=== PATIENT | male | born 1955 | race Caucasian/White ===

== ENCOUNTER → 2018-04-20 | Outpatient (CLI) | payer BC ==
[~2018-04-20] MED LIST: DOBUTamine DRIP for NUC MED 500 MG in DEXTROSE/WATER 1 250ML.BAG IV ONE
--- NOTE | 2018-04-20 16:44 | ECHOS ---
STRESS ECHOCARDIOGRAM DATE OF SERVICE: 04/20/2018 INDICATIONS: Chest pain. MEDICATIONS: BASELINE HEART RATE: 70 BASELINE BLOOD PRESSURE: 155/76 MAXIMUM HEART RATE: 148 MAXIMUM BLOOD PRESSURE: 216/63 85% MPHR: 134 100% MPHR: 158 METS: MAXIMUM STAGE REACHED: 30 mcg/kg per minute. TOTAL EXERCISE TIME: 7:15 CLINICAL INFORMATION: STRESS DATA: Pre-testing physical examination showed a heart rate of 70, pressure 155/76 mmHg. Baseline EKG showed sinus mechanism. Dobutamine infusion at the dose of 10 mcg/kg per minute was initiated and increased to 30 mcg/kg per minute. Max heart rate was 148, which is about 93% of maximum predicted heart rate. Maximum blood pressure was 216/63 mmHg. Clinically the patient did not have any symptoms of chest pain or discomfort during the testing or in the recovery time. The EKG showed about [address]-segment changes. ECHOCARDIOGRAM IMAGES: Echocardiogram images from parasternal long axis view, parasternal short axis view, apical 4-chamber and apical 2-chamber views were obtained as baseline images, at low-dose dobutamine infusion, peak heart rate as well as on recovery, and the echocardiogram images showed good augmentation in the left ventricular systolic function without any evidence of wall motion abnormalities concerning for ischemia. CONCLUSION: 1. Abnormal EKG in response to dobutamine with ST changes. 2. Normal echocardiogram in response to dobutamine without any evidence of wall motion abnormalities concerning for ischemia. LIZA / CARRIEN: [id number] /
== END | disposition home or self-care (01) ==
LOC: RADNMMAIN 10:19
PROVIDERS: ATTEND Internal Medicine Geriatric Medicine
DX: I20.9 Angina pectoris, unspecified (principal)
CPT/HCPCS: 93351; J1250

== ENCOUNTER 2018-05-09 07:29 | Inpatient (IN) | payer BC ==
[~2018-05-09 07:29] MED LIST changes: +ALPRAZolam 0.25 MG TAB PO PRN; +ALPRAZolam 0.5 MG TAB PO PRN; +ASPIRIN 325 MG TAB PO STA; +ATORVASTATIN 80 MG TAB PO STA; -DOBUTamine DRIP for NUC MED 500 MG in DEXTROSE/WATER 1 250ML.BAG IV ONE; +NITROGLYCERIN SL TABS 0.4 MG TAB SUBLINGUAL PRN
[2018-05-09] MEDS ORDERED: SODIUM CHLORIDE 0.9% 1,000 ML in EMPTY BAG 1 BAG IV ONE (07:30)
[2018-05-09] MEDS ORDERED: SODIUM CHLORIDE 0.9% 1,000 ML IV ONE (07:58)
[2018-05-09 08:02] LABS: Glucose,Whole Blood 145 mg/dL (75-99)
[2018-05-09] MEDS ORDERED: VERAPAMIL 2.5 MG/ML 2 ML AMP ONE (11:11)
[2018-05-09] MEDS ORDERED: fentaNYL (PF) 50 MCG/ML 2 ML AMP ONE (11:11)
[2018-05-09] MEDS ORDERED: LIDOCAINE 1% INJ 10MG/ML (20 ML MDV) ONE (11:11)
[2018-05-09] MEDS ORDERED: HEPARIN SODIUM 1,000 UN/ML (10ML VL) ONE (11:11)
[2018-05-09] MEDS ORDERED: fentaNYL (PF) 50 MCG/ML 2 ML AMP IV ONE (11:40)
[2018-05-09] MEDS ORDERED: LIDOCAINE 2% INJ 20 MG/ML SQ ONE (11:42)
[2018-05-09] MEDS ORDERED: VERAPAMIL SYRINGE (5 MG/10 ML) INTRAARTER ONE (11:43)
[2018-05-09] MEDS ORDERED: MIDAZOLAM 2 MG/2 ML VIAL IV ONE (11:45)
[2018-05-09] MEDS ORDERED: HEPARIN SODIUM 1,000 UN/ML (10ML VL) IV ONE (11:51)
[2018-05-09] MEDS ORDERED: IOPAMIDOL-370 125ML BTL INJ ONE (11:55)
[2018-05-09] MEDS ORDERED: RX INFO: IV CONTRAST WAS GIVEN 1 EACH MISC MISCELLANE PRN (12:12)
[2018-05-09] MEDS ORDERED: SODIUM CHLORIDE 0.9% 1,000 ML IV SCH (12:15)
--- NOTE | 2018-05-09 12:33 | CC ---
CARDIAC CATHETERIZATION REPORT Mr. Kumar is a 63-year-old male with known history of hypertension, hyperlipidemia, diabetes mellitus, who has been complaining of exertional chest discomfort and dyspnea on exertion. Underwent a stress echocardiogram that showed EKG changes, but no significant change on his echocardiogram, but because of the persistent symptoms and his multiple risk factors, recommendation made regarding cardiac catheterization. The procedures, risks and complications were discussed with the patient who is in full understanding and agreement. 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 Using Xylocaine anesthesia and Seldinger technique, a 6-Nigerian sheath was introduced in the right radial artery. Selective right and left angiography was performed using 5-Nigerian 3.5 bend right and left Harman catheter, multiple views of the coronary artery including hemiaxial views obtained. Following that a 5-Nigerian tight pigtail catheter was introduced in the left ventricle and a 30 degree BAILEY view of the left ventricle was obtained. Following that, catheter and sheath were removed. Hemostasis was obtained with deployment of a TR band. There was no immediate complication. Patient is returned to his room in stable condition. Of note, the patient received 5000 units of intravenous heparin as well as intra-arterial verapamil. FINDINGS: FLUOROSCOPY: There was calcification involving the coronary arteries and multiple segment. LEFT MAIN: This is a large-sized vessel, bifurcating into left circumflex, left anterior descending artery. The distal segment of the left main, there is an eccentric 60% to 70% stenosis. The rest of the vessel has no high-grade stenosis. LEFT ANTERIOR DESCENDING ARTERY: This is a large-sized vessel, reaching toward the apex with a wraparound apex segment, giving rise to a large diagonal branch, after the takeoff of the diagonal branch and at the takeoff of the first septal roll cutting operator, there is a 70%-80% stenosis. There is another plaque in the mid segment of mild degree. The rest of the vessel has no high-grade stenosis. LEFT CIRCUMFLEX: This is a nondominant vessel, large in caliber, giving rise to 3 obtuse marginal branches. The takeoff of the left circumflex has a 99% stenosis. There is another plaque of about 80% in the mid segment before the takeoff of the second obtuse marginal branch. The rest of the vessel has no high-grade stenosis. RIGHT CORONARY ARTERY: This is a large dominant vessel, bifurcating into PDA and posterolateral segment branches, has a superior takeoff. The right coronary artery in mid segment has a 90% stenosis. There is another plaque of 70%-80% stenosis in the distal segment. The PDA has no evidence of high-grade stenosis. LEFT VENTRICULOGRAM: Left ventriculogram is performed in 30 degree BAILEY view and revealed normal left ventricular size and systolic function. Ejection fraction is 60%. There was no significant mitral regurgitation. HEMODYNAMICS: There was no gradient across the aortic valve. The left ventricular end- diastolic pressure was 12 to 14 mmHg. CONCLUSION: 1. Significant distal left main disease with severe triple-vessel coronary artery disease. 2. Normal left ventricular size and systolic function. RECOMMENDATION: In view of finding anatomy, I recommend proceeding with evaluation for coronary artery bypass grafting. The rationale behind the recommendation as well as the findings were discussed with the patient his family and they are in full understanding and agreement. MMTRUDYL / IJN: [id number] /
--- NOTE | 2018-05-09 12:33 | LTR ---
DATE OF SERVICE: 05/09/2018 RE: Jai Kumar Dear Dr. Lazo; I had the pleasure to perform cardiac catheterization on Mr. Kumar at [facility] on May 09, 2018 and a full copy of the procedure note will be forwarded to you. In brief, he was found to have severe triple-vessel coronary artery disease with severe left main disease and based on those findings, recommend to proceed with coronary artery bypass grafting evaluation. I will keep you updated on his progress and thank you again for allowing me to participate in this patient's care. Please feel free to call for any questions. Sincerely yours, MD KEYSHA SalasL / CARRIEN: [id number] /
[2018-05-09 14:04] LABS: Basophils % (A) 0 %; Eosinophils # (A) 0.3 k/uL (0-0.7); Eosinophils % (A) 5 %; HCT 38.2 % (39.0-53.0); HGB 12.4 gm/dL (13.0-17.5); Lymphocytes # (A) 2.4 k/uL (1.0-4.8); Lymphocytes % (A) 38 %; MCH 27.9 pg (25.0-35.0); MCHC 32.5 g/dL (31.0-37.0); Mean Platelet Volume 6.8; Monocytes # (A) 0.3 k/uL (0-1.0); Monocytes % (A) 5 %; Neutrophils # (A) 3.1 k/uL (1.3-7.7); Neutrophils % (A) 50 %; Platelet Count 227 k/uL (150-450); RBC 4.44 m/uL (4.30-5.90); RDW 13.5 % (11.5-15.5); WBC 6.2 k/uL (3.8-10.6)
[2018-05-09 14:09] LABS: Prothrombin Time 10.3 sec (9.0-12.0)
[2018-05-09] MEDS ORDERED: MD COMMUNICATION TO PHARMACY 1 EACH MISC PO ONE ×2 (14:32)
[2018-05-09] MEDS ORDERED: HEPARIN SOD,PORK IN 0.45% NACL 25,000 UNIT in 0.45% NACL 1 500ML.BAG IV SCH (15:00)
--- NOTE | 2018-05-09 15:55 | P.GSCN ---
History of Present Illness Consult date: 05/09/18 Reason for Consult: Left main disease with triple-vessel coronary artery disease, surgical recommendations Requesting physician: Socrates Fernandez History of present illness: This is a 63-year-old active gentleman who follows on an outpatient basis with Dr. Lazo. He has a previous medical history of hypertension, hyperlipidemia, diabetes, never smoker, GERD, and family history of premature coronary artery disease. 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 Apparently since the middle of February he has been noticing increasing chest discomfort and exertional dyspnea exacerbated by the cold weather. He described his discomfort as similar to previous GERD attacks but this time it only happened with exertion. He also complained of nausea. He denied any other symptoms. Lately of these attacks were coming more frequently , and were not abating with rest. In addition, he was beginning to have decreased exercise tolerance. He had a visit with his primary care physician who ordered a dobutamine stress echo, the echo portion was normal with no wall motion abnormalities, however EKG portion was abnormal and he was referred to Dr. Fernandez from [facility]. He had an echocardiogram completed in Dr. Fernandez's office demonstrating normal left ventricular function with an ejection fraction 55%, mild mitral regurgitation, and mild tricuspid regurgitation. Based on his symptoms and previous medical history he was recommended to undergo heart catheterization which was completed this morning and which demonstrated left main disease approximately 80% near the bifurcation , proximal LAD stenosis 70-80%, 99% stenosis of the proximal left circumflex and 80% stenosis in the mid segment, and mid RCA stenosis 90% with 70-80% stenosis in the distal segment. Due to these findings Dr. Heck from cardiothoracic surgery was consulted regarding surgical revascularization. Review of Systems Review of systems was completed and was negative except as noted. - Cardiovascular Reports as per HPI, Reports chest pain, Reports decreased exercise tolerance, Reports dyspnea on exertion - Gastrointestinal Reports as per HPI, Reports nausea Past Medical History Past Medical History: Diabetes Mellitus, Hyperlipidemia, Hypertension History of Any Multi-Drug Resistant Organisms: None Reported Additional Past Surgical History / Comment(s): pelvis surgery with metal, second sx to remove metal, esophageal surgery FOR GERD, one kidney removed( DONATED) Past Anesthesia/Blood Transfusion Reactions: No Reported Reaction Past Psychological History: No Psychological Hx Reported Smoking Status: Never smoker Past Alcohol Use History: None Reported Past Drug Use History: None Reported Medications and Allergies Home Medications Medication Instructions Recorded Confirmed Type Ezetimibe/Simvastatin [Vytorin 1 tab PO DAILY 09/06/15 05/09/18 History 10-40 mg Tablet] Glimepiride [Amaryl] 2 mg PO DAILY 09/06/15 05/09/18 History Losartan Potassium 100 mg PO DAILY 09/06/15 05/09/18 History Aspirin [Adult Low Dose Aspirin EC] 81 mg PO QAM 05/05/18 05/09/18 History Isosorbide Mononitrate ER [Imdur] 30 mg PO QAM 05/05/18 05/09/18 History Metoprolol Tartrate [Lopressor] 25 mg PO BID 05/05/18 05/09/18 History metFORMIN HCL 1,000 mg PO BID 05/05/18 05/09/18 History Allergies Allergy/AdvReac Type Severity Reaction Status Date / Time No Known Allergies Allergy Verified 05/09/18 13:19 Surgical - Exam Vital Signs Temp Pulse Resp BP Pulse Ox 98.1 F 65 16 183/98 95 05/09/18 07:51 05/09/18 07:51 05/09/18 07:51 05/09/18 07:51 05/09/18 07:51 - General well developed, well nourished, no distress, no pain, obese - Eyes PERRL, normal ocular movement - ENT no hearing loss - Neck no masses, no bruits, trachea midline - Respiratory Lungs sounds clear bilaterally. Respirations even, nonlabored. Currently on room air with oxygen saturation 95%. No chest wall deformities. - Cardiovascular S1, S2 present. Regular rate and rhythm, sinus rhythm on telemetry. Palpable peripheral pulses bilaterally. No edema present. No calf pain or tenderness noted. No varicosities noted. Negative Inocente's test to the left radial artery. - Abdomen Abdomen: soft, non tender, bowel sounds - Genitourinary Deferred - Rectum Deferred - Integumentary no rash, no growths - Neurologic normal coordination, normal sensation - Musculoskeletal normal gait, normal posture - Psychiatric oriented to time, oriented to person, oriented to place, speech is normal, memory intact Results - Labs 05/09/18 13:43 Abnormal Lab Results - Last 24 Hours (Table) 12/10/18 12/10/18 12/10/18 Range/Units 08:00 13:43 13:43 Hgb 12.4 L (13.0-17.5) gm/dL Hct 38.2 L (39.0-53.0) % APTT 35.0 H (22.0-30.0) sec POC Glucose (mg/dL) 145 H (75-99) mg/dL - Imaging Additional studies: Heart catheterization films reviewed Assessment and Plan (1) Coronary artery disease Current Visit: Yes Status: Chronic Code(s): I25.10 - ATHSCL HEART DISEASE OF [place] CORONARY ARTERY W/O ANG PCTRS SNOMED Code(s): 68514588 (2) Left main coronary artery disease Current Visit: Yes Status: Chronic Code(s): I25.10 - ATHSCL HEART DISEASE OF [place] CORONARY ARTERY W/O ANG PCTRS SNOMED Code(s): 646990784 (3) Hypertension Current Visit: Yes Status: Chronic Code(s): I10 - ESSENTIAL (PRIMARY) HYPERTENSION SNOMED Code(s): 87172212 (4) Hyperlipidemia Current Visit: Yes Status: Chronic Code(s): E78.5 - HYPERLIPIDEMIA, UNSPECIFIED SNOMED Code(s): 71148450 (5) Diabetes mellitus Current Visit: Yes Status: Chronic Code(s): E11.9 - TYPE 2 DIABETES MELLITUS WITHOUT COMPLICATIONS SNOMED Code(s): 68598201 (6) Single kidney Current Visit: Yes Status: Chronic Code(s): Z90.5 - ACQUIRED ABSENCE OF KIDNEY SNOMED Code(s): 095299866 (7) Family history of premature coronary artery disease Current Visit: Yes Status: Chronic Code(s): Z82.49 - FAMILY HX OF ISCHEM HEART DIS AND OTH DIS OF THE CIRC SYS SNOMED Code(s): 243168257 Plan: The patient was seen and examined at the bedside with Dr. Heck. Chart/ diagnostics were reviewed. Heart catheterization films were reviewed with Dr. Heck. We offered coronary artery bypass grafting surgery to the patient, the usual perioperative course was discussed in detail with the patient and his , all risks and benefits were described in detail, all questions were answered, and the patient consented to surgery. He is to remain inpatient. Preoperative testing was initiated. Our plan is for coronary artery bypass graft surgery with left internal mammary artery and endovascular vein harvesting, possible radial artery harvesting on 05/11/[address] Butler pending the results of preoperative testing. Continue aspirin, statin, beta katia therapy. Medical management per primary care service. More recommendations to follow. Thank you Dr. Fernandez for this consult. We look forward to working with you in the care of your patient. Time with Patient: Greater than 30
[2018-05-09 16:48] LABS: Albumin 3.6 g/dL (3.5-5.0); Calcium 9.1 mg/dL (8.4-10.2); Magnesium 1.9 mg/dL (1.6-2.3); Potassium 3.9 mmol/L (3.5-5.1); Total Bilirubin 0.3 mg/dL (0.2-1.3); Total Protein 6.3 g/dL (6.3-8.2)
[2018-05-09 18:14] LABS: Glucose,Whole Blood 139 mg/dL (75-99)
--- NOTE | 2018-05-09 18:22 | US ---
EXAMINATION TYPE: US carotid duplex BILAT DATE OF EXAM: 05/09/2018 COMPARISON: NONE CLINICAL HISTORY: preop cardiac surgery. EXAM MEASUREMENTS: RIGHT: Peak Systolic Velocity (PSV) cm/sec ----- Right CCA: 101.6 ----- Right ICA: 88.6 ----- Right ECA: 103.1 ICA/CCA ratio: 0.9 RIGHT: End Diastole cm/sec ----- Right CCA: 12.9 ----- Right ICA: 20.2 ----- Right ECA: 0.0 LEFT: Peak Systolic Velocity (PSV) cm/sec ----- Left CCA: 113.6 ----- Left ICA: 127.4 ----- Left ECA: 121.0 ICA/CCA ratio: 1.1 LEFT: End Diastole cm/sec ----- Left CCA: 18.4 ----- Left ICA: 25.7 ----- Left ECA: 0.0 VERTEBRALS (direction of flow): Right Vertebral: Antegrade Left Vertebral: Antegrade Rhythm: Normal No significant stenosis seen, bilateral plaque at bulbs. IMPRESSION: There is antegrade flow in the vertebral arteries. Images in measurements suggest 25% st enosis in both internal carotid arteries. Criteria for Assigning % of Stenosis / Diameter reduction (Estimation based on the indirect measurements of the internal carotid artery velocities (ICA PSV). 1. Normal (no stenosis)=ICA PSV < 125 cm/s: ratio < 2.0: ICA EDV<40 cm/s. 2. Less than 50% stenosis=ICA PSV < 125 cm/s: ratio < 2.0: ICA EDV<40 cm/s. 3. 50 to 69% stenosis=ICA PSV of 125 to 230 cm/s: ration 2.0 ? 4.0: ICA EDV 40-100 cm/s. 4. Greater than 70% stenosis to near occlusion= ICA PSV > 230 cm/s: ratio > 4.0: ICA EDV > 100 cm/s. 5. Near occlusion= ICA PSV velocities may be low or undetectable: variable ratio and ICA EDV. 6. Total occlusion=unable to detect flow.
[2018-05-09 18:46] LABS: Glucose,Whole Blood 113 mg/dL (75-99)
--- NOTE | 2018-05-09 18:59 | XR ---
EXAMINATION TYPE: XR chest 2V DATE OF EXAM: 05/09/2018 COMPARISON: 09/06/2015 HISTORY: Preop cardiac surgery TECHNIQUE: Frontal and lateral views of the chest are obtained. FINDINGS: There is small linear density at the right lung base. The other lung amaro are clear. Hea rt and mediastinum are normal. There is no pleural effusion. Bony thorax is intact. IMPRESSION: Scarring or subsegmental atelectasis right lower lobe unchanged. Normal heart.
[2018-05-09 20:51] LABS: Glucose,Whole Blood 196 mg/dL (75-99)
[2018-05-09] MEDS: METOPROLOL TARTRATE 25 MG TAB PO SCH (21:45)
[2018-05-09] MEDS: INSULIN ASPART 100 UNIT/ML 1 ML 10 ML VIAL SQ SCH (21:45)
[2018-05-09] MEDS: MUPIROCIN 2% OINT 22 GM TUBE NASAL SCH (22:24)
[2018-05-09] MEDS: HEPARIN SODIUM,PORCINE 5,000 UNIT/ML 1 ML VIAL IV PRN (22:41)
[2018-05-10 05:16] LABS: Hepatitis A Antibody IgM Non-Reactive (Non-Reactive); Hepatitis B Core IgM Non-Reactive (Non-Reactive)
[2018-05-10 05:54] LABS: Basophils % (A) 1 %; Eosinophils # (A) 0.3 k/uL (0-0.7); Eosinophils % (A) 5 %; HCT 38.4 % (39.0-53.0); HGB 12.2 gm/dL (13.0-17.5); Lymphocytes # (A) 2.4 k/uL (1.0-4.8); Lymphocytes % (A) 40 %; MCH 27.3 pg (25.0-35.0); MCHC 31.7 g/dL (31.0-37.0); MCV 86.2 fL (80.0-100.0); Mean Platelet Volume 6.5; Monocytes # (A) 0.3 k/uL (0-1.0); Monocytes % (A) 6 %; Neutrophils # (A) 2.8 k/uL (1.3-7.7); Neutrophils % (A) 47 %; Platelet Count 235 k/uL (150-450); RBC 4.45 m/uL (4.30-5.90); RDW 13.5 % (11.5-15.5); WBC 5.9 k/uL (3.8-10.6)
[2018-05-10] MEDS: HEPARIN SODIUM,PORCINE 5,000 UNIT/ML 1 ML VIAL IV PRN ×2 (06:10→14:01)
[2018-05-10 06:11] LABS: Potassium 4.2 mmol/L (3.5-5.1)
[2018-05-10 06:53] LABS: Glucose,Whole Blood 142 mg/dL (75-99)
[2018-05-10] MEDS: INSULIN ASPART 100 UNIT/ML 1 ML 10 ML VIAL SQ SCH ×4 (07:17→20:48)
[2018-05-10] MEDS ORDERED: INSULIN ASPART 100 UNIT/ML 1 ML 10 ML VIAL SQ SCH (07:30)
[2018-05-10] MEDS: ASPIRIN 81 MG PO SCH (09:46)
[2018-05-10] MEDS: ATORVASTATIN 20 MG TAB PO SCH (09:46)
--- NOTE | 2018-05-10 09:46 | PN ---
PROGRESS NOTE Mr. Kumar was a patient who underwent a cardiac cath performed by Dr. Fernandez yesterday, which revealed left main and triple-vessel disease. Decent LV function is doing well. He has type 2 diabetes hypertension. Blood sugars are slightly elevated. He is doing well without anginal symptoms. His vital signs stable S1-S2 heard normally. Lungs are clear. Abdomen and lower extremity exam unchanged. Right radial cath site is clean and dry with a good pulse. The patient is going for open heart surgery tomorrow. Dr. Butler will be performing the bypass surgery. MMODL / IJN: [id number] /
[2018-05-10] MEDS: EZETIMIBE 10 MG TAB PO SCH (09:47)
[2018-05-10] MEDS: GLIMEPIRIDE 2 MG TAB PO SCH (09:47)
[2018-05-10] MEDS: METOPROLOL TARTRATE 25 MG TAB PO SCH ×2 (09:48→20:48)
[2018-05-10] MEDS: ISOSORBIDE MONONITRATE ER 30 MG TAB.ER.24H PO SCH (09:48)
[2018-05-10] MEDS: LOSARTAN 50 MG TAB PO SCH (09:48)
[2018-05-10] MEDS: MUPIROCIN 2% OINT 22 GM TUBE NASAL SCH ×2 (09:48→20:49)
[2018-05-10 12:08] LABS: Glucose,Whole Blood 94 mg/dL (75-99)
[2018-05-10] MEDS: HEPARIN SOD,PORK IN 0.45% NACL 25,000 UNIT in 0.45% NACL 1 250ML.BAG IV SCH (13:31)
--- NOTE | 2018-05-10 13:54 | P.HPIM ---
History of Present Illness H&P Date: 05/10/18 Chief Complaint: significant the distal left main disease with triple-vessel disease. This is a 63-year-old male one of Dr. 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, hyperlipidemia, diabetes mellitus type 2, GERD status post Sacha fundoplication, and history of premature coronary artery disease patient has been having significant effort to dyspnea with chest discomfort especially in the cold weather initially was getting better with rest and eventually did not get better after arrest he ended up seeing his primary care physician sent him for a dobutamine stress echo Dayco portion was normal however the patient the EKG portion was abnormal ended up seeing cardiology underwent left heart catheterization that showed a distal left main disease 70% as well as triple-vessel disease including the left anterior descending coronary artery with 70% left circumflex 99% and RCA 80%, he was seen in consultation by Pavel sims scheduled to go for open heart surgery tomorrow morning. Review of Systems Constitutional: Denies chronic headaches, Denies fever, Denies weakness, Denies weight gain Eyes: denies blurred vision, denies bulging eye, denies decreased vision, denies diplopia, denies discharge Ears, nose, mouth and throat: Denies dental pain, Denies neck lump, Denies sore throat Cardiovascular: Reports chest pain, Reports decreased exercise tolerance, Reports dyspnea on exertion, Reports high blood pressure, Reports shortness of breath, Denies syncope Respiratory: Denies congestion, Denies cough with sputum, Denies home oxygen, Denies sleep apnea, Denies snoring, Denies wheezing Gastrointestinal: Denies abdominal pain, Denies BRBPR, Denies heartburn, Denies melena, Denies nausea, Denies vomiting Genitourinary: Denies dysuria, Denies nocturia, Denies polyuria Musculoskeletal: Denies myalgias Musculoskeletal: absent: ankle pain, ankle stiffness, ankle swelling, elbow pain , elbow stiffness, elbow swelling, foot pain, foot stiffness, foot swelling, hand pain, hand stiffness, hand swelling, hip pain, hip stiffness, hip swelling , knee pain, knee stiffness, knee swelling, shoulder pain, shoulder stiffness, shoulder swelling, wrist pain, wrist stiffness, wrist swelling Integumentary: Denies pruritus, Denies rash Neurological: Denies numbness, Denies weakness Psychiatric: Denies anxiety, Denies depression Endocrine: Denies fatigue, Denies weight change Past Medical History Past Medical History: Coronary Artery Disease (CAD), Diabetes Mellitus, GERD/ Reflux, Hyperlipidemia, Hypertension, Osteoarthritis (OA) History of Any Multi-Drug Resistant Organisms: None Reported Additional Past Surgical History / Comment(s): pelvis surgery with metal, second sx to remove metal, esophageal surgery FOR GERD, one kidney removed( DONATED) Past Anesthesia/Blood Transfusion Reactions: No Reported Reaction Past Psychological History: No Psychological Hx Reported Smoking Status: Never smoker Past Alcohol Use History: None Reported Past Drug Use History: None Reported - Past Family History Mother Family Medical History: Myocardial Infarction ([place]) (mother at age 86 from myocardial infarction) Father Family Medical History: Myocardial Infarction ([place]) (father at age of 84 from [place].) Brother(s) Family Medical History: Coronary Artery Disease (CAD) (patient has 2 brothers one of them with an [place] the other one had an [place] with the AICD implantation.) Sister(s) Family Medical History: Renal Disease (patient has 2 sisters one of them is healthy the other one underwent kidney transplant due to reflux disease.) Daughter(s) Family Medical History: No Reported History (patient has 2 daughters no major medical problems.) Son(s) Family Medical History: No Reported History (patient has 2 sons no major medical problems.) Additional Family Medical History / Comment(s): Patient has 9 grandchildren and 1 and great grand child. Medications and Allergies Home Medications Medication Instructions Recorded Confirmed Type Ezetimibe/Simvastatin [Vytorin 1 tab PO DAILY 09/06/15 05/09/18 History 10-40 mg Tablet] Glimepiride [Amaryl] 2 mg PO DAILY 09/06/15 05/09/18 History Losartan Potassium 100 mg PO DAILY 09/06/15 05/09/18 History Aspirin [Adult Low Dose Aspirin EC] 81 mg PO QAM 05/05/18 05/09/18 History Isosorbide Mononitrate ER [Imdur] 30 mg PO QAM 05/05/18 05/09/18 History Metoprolol Tartrate [Lopressor] 25 mg PO BID 05/05/18 05/09/18 History metFORMIN HCL 1,000 mg PO BID 05/05/18 05/09/18 History Allergies Allergy/AdvReac Type Severity Reaction Status Date / Time No Known Allergies Allergy Verified 05/09/18 13:19 Physical Exam Vitals: Vital Signs Temp Pulse Resp BP Pulse Ox 05/10/18 11:32 97.3 F L 69 14 154/103 93 L 05/10/18 08:00 98.1 F 69 12 167/85 94 L 05/10/18 04:00 97.9 F 61 16 159/80 93 L 05/10/18 00:00 98.2 F 62 12 150/65 95 05/09/18 20:00 97.8 F 73 12 145/76 93 L 05/09/18 18:45 98.1 F 56 L 18 150/87 96 05/09/18 17:20 59 L 20 138/80 95 05/09/18 16:20 70 18 166/77 95 05/09/18 15:50 70 20 151/74 95 05/09/18 15:20 70 20 151/74 95 05/09/18 14:50 69 18 142/72 94 L 05/09/18 14:20 69 20 145/78 97 05/09/18 13:49 69 16 145/78 94 L Intake and Output 05/09/18 05/10/18 05/10/18 22:59 06:59 14:59 Intake Total 1170.333 195.199 260 Output Total 300 600 500 Balance 870.333 -404.801 -240 Intake: IV 525 20 Sodium Chloride 0.9% 1, 20 000 ml @ 100 mls/hr IV . Q10H [facility] Rx#:[id number] Sodium Chloride 0.9% 1, 525 000 ml In Empty Bag 1 bag @ 75 mls/hr IV .[id number] [facility] Rx#:[id number] Intake, IV Titration 150.333 195.199 Amount Heparin Sod,Pork in 0.45% 150.333 195.199 NaCl 25,000 unit In 0.45 % NaCl 1 500ml.bag @ 9. 586 UNITS/KG/HR 20 mls/hr IV .Q24H [facility] Rx#: [id number] Oral 495 240 Output: Urine 300 600 500 Other: Voiding Method Toilet Toilet Toilet # Voids 1 1 1 Weight 107.1 kg 107.3 kg - Constitutional General appearance: average body habitus, no acute distress - EENT Eyes: anicteric sclerae, EOMI, PERRLA, no ptosis, no scleral icterus, normal appearance ENT: hearing grossly normal, NA/AT, normal oropharynx Ears: bilateral: normal - Neck Neck: no lymphadenopathy, normal ROM, no rigidity, no stridor, no thyromegaly Carotids: bilateral: upstroke normal Thyroid: bilateral: normal size - Respiratory Respiratory: bilateral: diminished, negative: dullness, rales, rhonchi, wheezing , prolonged expiration, prolonged inspiration - Cardiovascular Rhythm: regular Heart sounds: normal: S1, S2 Abnormal Heart Sounds: no systolic murmur, no S3 Gallop, no S4 Gallop - Gastrointestinal General gastrointestinal: normal bowel sounds, soft, no splenomegaly, no tenderness, no umbilical hernia - Integumentary Integumentary: normal, normal turgor - Neurologic Neurologic: CNII-XII intact - Musculoskeletal Musculoskeletal: strength equal bilaterally - Psychiatric Psychiatric: A&O x's 3, appropriate affect, intact judgment & insight Results CBC & Chem 7: 05/10/18 04:58 05/10/18 04:58 Labs: Abnormal Lab Results - Last 24 Hours (Table) 05/09/18 05/09/18 05/09/18 Range/Units 13:43 13:43 16:17 Hgb 12.4 L (13.0-17.5) gm/dL Hct 38.2 L (39.0-53.0) % APTT 35.0 H (22.0-30.0) sec Glucose 210 H (74-99) mg/dL POC Glucose (mg/dL) (75-99) mg/dL Hemoglobin A1c (4.0-6.0) % Triglycerides 349 H (<150) mg/dL Crossmatch 05/09/18 05/09/18 05/09/18 Range/Units 16:17 17:54 18:44 Hgb (13.0-17.5) gm/dL Hct (39.0-53.0) % APTT (22.0-30.0) sec Glucose (74-99) mg/dL POC Glucose (mg/dL) 139 H 113 H (75-99) mg/dL Hemoglobin A1c 7.0 H (4.0-6.0) % Triglycerides (<150) mg/dL Crossmatch 05/09/18 05/10/18 05/10/18 Range/Units 20:50 04:58 04:58 Hgb (13.0-17.5) gm/dL Hct (39.0-53.0) % APTT (22.0-30.0) sec Glucose 138 H (74-99) mg/dL POC Glucose (mg/dL) 196 H (75-99) mg/dL Hemoglobin A1c (4.0-6.0) % Triglycerides (<150) mg/dL Crossmatch See Detail 05/10/18 05/10/18 05/10/18 Range/Units 04:58 06:50 12:04 Hgb 12.2 L (13.0-17.5) gm/dL Hct 38.4 L (39.0-53.0) % APTT 36.2 H (22.0-30.0) sec Glucose (74-99) mg/dL POC Glucose (mg/dL) 142 H (75-99) mg/dL Hemoglobin A1c (4.0-6.0) % Triglycerides (<150) mg/dL Crossmatch Thrombosis Risk Factor Assmnt - DVT/VTE Prophylaxis DVT/VTE Prophylaxis: Mechanical Prophylaxis ordered Assessment and Plan Assessment: Assessment and plan: 1. Distal left main disease with triple-vessel coronary artery disease. Patient is scheduled to go for coronary artery bypass graft tomorrow morning. The patient is sitting up in bed in no apparent distress he continues with Lopressor 25 mg orally twice every day as well as aspirin 81 mg orally once every day and Lipitor 20 mg orally once every day, we will continue with the Imdur for now 30 mg orally once every day, we'll continue heparin drip. 2. Hypertension and hypertensive cardiovascular disease. Continue losartan 100 mg orally once every day and Lopressor 25 mg orally twice every day. 3. Hyperlipidemia. Continue Lipitor 20 mg orally once every day. 4. Diabetes mellitus type 2. Continue patient on glimepiride 2 mg orally once every day, hold metformin. 5. DVT prophylaxis. Continue knee-high MEENA hose and SCDs. He is currently on heparin drip. 6. GI prophylaxis. Continue PPI. 7. Admit to inpatient. Estimate a length of stay 2 midnights. 8. Full code.
--- NOTE | 2018-05-10 14:03 | P.CNPUL ---
History of Present Illness Consult date: 05/10/18 Reason for consult: other (Preoperative pulmonary clearance, patient is scheduled for CABG in a.m.) Chief complaint: Substernal chest discomfort and dyspnea on exertion. History of present illness: This is a 63-year-old white male, known history of hypertension, dyslipidemia, type 2 diabetes, nonsmoker, nondrinker, strong family history of premature coronary artery disease, known history of GERD and previous Sacha's fundoplication. Patient had previous history of kidney donation to his sister. Over the last couple of months, the patient has been noticing some chest discomfort, and some dyspnea on minimal exertion, which he thought initially could be related to his GERD symptoms coming back. However his symptoms where becoming more frequently, and abating with rest. Patient eventually underwent a full cardiac workup including cardiac catheterization which showed significant left main disease approximately 80% proximal LAD stenosis of 70-80% and 99% stenosis of the proximal left circumflex and 80% stenosis in the midsegment. Mid RCA was 90% stenosed. Considering the findings, patient was referred to cardiac surgery, and he is scheduled to undergo surgery tomorrow. Patient denies any previous pulmonary history, never smoked, has been quite active until the last couple of months when he has been noticing worsening symptoms of dyspnea on exertion and chest discomfort. 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 And he is usually quite active in his job physically. Chest x-ray showed some linear scarring at the right base, unchanged compared to a chest x-ray in 2016. Spirometry showed mild to moderate restriction. Review of Systems 14 point review of systems were obtained, please refer to pertinent positives in HPI, otherwise remaining systems are negative Past Medical History Past Medical History: Diabetes Mellitus, Hyperlipidemia, Hypertension History of Any Multi-Drug Resistant Organisms: None Reported Additional Past Surgical History / Comment(s): pelvis surgery with metal, second sx to remove metal, esophageal surgery FOR GERD, one kidney removed( DONATED) Past Anesthesia/Blood Transfusion Reactions: No Reported Reaction Past Psychological History: No Psychological Hx Reported Smoking Status: Never smoker Past Alcohol Use History: None Reported Past Drug Use History: None Reported Medications and Allergies Home Medications Medication Instructions Recorded Confirmed Type Ezetimibe/Simvastatin [Vytorin 1 tab PO DAILY 09/06/15 05/09/18 History 10-40 mg Tablet] Glimepiride [Amaryl] 2 mg PO DAILY 09/06/15 05/09/18 History Losartan Potassium 100 mg PO DAILY 09/06/15 05/09/18 History Aspirin [Adult Low Dose Aspirin EC] 81 mg PO QAM 05/05/18 05/09/18 History Isosorbide Mononitrate ER [Imdur] 30 mg PO QAM 05/05/18 05/09/18 History Metoprolol Tartrate [Lopressor] 25 mg PO BID 05/05/18 05/09/18 History metFORMIN HCL 1,000 mg PO BID 05/05/18 05/09/18 History Allergies Allergy/AdvReac Type Severity Reaction Status Date / Time No Known Allergies Allergy Verified 05/09/18 13:19 Physical Exam Vitals: Vital Signs Temp Pulse Resp BP Pulse Ox 05/10/18 11:32 97.3 F L 69 14 154/103 93 L 05/10/18 08:00 98.1 F 69 12 167/85 94 L 05/10/18 04:00 97.9 F 61 16 159/80 93 L 05/10/18 00:00 98.2 F 62 12 150/65 95 05/09/18 20:00 97.8 F 73 12 145/76 93 L 05/09/18 18:45 98.1 F 56 L 18 150/87 96 05/09/18 17:20 59 L 20 138/80 95 05/09/18 16:20 70 18 166/77 95 05/09/18 15:50 70 20 151/74 95 05/09/18 15:20 70 20 151/74 95 05/09/18 14:50 69 18 142/72 94 L 05/09/18 14:20 69 20 145/78 97 Intake and Output 05/09/18 05/10/18 05/10/18 22:59 06:59 14:59 Intake Total 1170.333 195.199 260 Output Total 300 600 500 Balance 870.333 -404.801 -240 Intake: IV 525 20 Sodium Chloride 0.9% 1, 20 000 ml @ 100 mls/hr IV . Q10H [facility] Rx#:[id number] Sodium Chloride 0.9% 1, 525 000 ml In Empty Bag 1 bag @ 75 mls/hr IV .[id number] [facility] Rx#:[id number] Intake, IV Titration 150.333 195.199 Amount Heparin Sod,Pork in 0.45% 150.333 195.199 NaCl 25,000 unit In 0.45 % NaCl 1 500ml.bag @ 9. 586 UNITS/KG/HR 20 mls/hr IV .Q24H [facility] Rx#: [id number] Oral 495 240 Output: Urine 300 600 500 Other: Voiding Method Toilet Toilet Toilet # Voids 1 1 1 Weight 107.1 kg 107.3 kg Physical Exam: Revealed a 63-year-old white male, pleasant n no distress. Head: Atraumatic, normocephalic. HEENT:[Neck is supple.] [No neck masses.] [No thyromegaly.] [No JVD.] Chest: [Clear throughout, no crackles, no rhonchi, no wheezes.] Cardiac Exam: [Normal S1 and S2, no S3 gallop, no murmur.] Abdomen: Obese, [Soft, nontender, no megaly, no rebound, no guarding, normal bowel sounds.] Extremities: [No clubbing, no edema, no cyanosis.] Neurological Exam: [No focal neurologic deficit.] Psychiatric: Normal mood, affect and mental status examination. Skin: No rashes. Results - Laboratory Findings CBC and BMP: 05/10/18 04:58 05/10/18 04:58 PT/INR, D-dimer PT 10.3 sec (9.0-12.0) 05/09/18 13:43 INR 1.0 (<1.2) 05/09/18 13:43 Abnormal lab findings: Abnormal Labs 05/09/18 05/09/18 05/09/18 08:00 13:43 13:43 Hgb 12.4 L Hct 38.2 L APTT 35.0 H Glucose POC Glucose (mg/dL) 145 H Hemoglobin A1c Triglycerides Crossmatch 05/09/18 05/09/18 05/09/18 16:17 16:17 17:54 Hgb Hct APTT Glucose 210 H POC Glucose (mg/dL) 139 H Hemoglobin A1c 7.0 H Triglycerides 349 H Crossmatch 05/09/18 05/09/18 05/10/18 18:44 20:50 04:58 Hgb Hct APTT Glucose POC Glucose (mg/dL) 113 H 196 H Hemoglobin A1c Triglycerides Crossmatch See Detail 05/10/18 05/10/18 05/10/18 04:58 04:58 06:50 Hgb 12.2 L Hct 38.4 L APTT Glucose 138 H POC Glucose (mg/dL) 142 H Hemoglobin A1c Triglycerides Crossmatch 05/10/18 12:04 Hgb Hct APTT 36.2 H Glucose POC Glucose (mg/dL) Hemoglobin A1c Triglycerides Crossmatch - Diagnostic Findings Chest x-ray: image reviewed (As noted in HPI.) Assessment and Plan Assessment: Impression: 1 triple-vessel coronary artery disease, with left main coronary artery disease , patient is scheduled for CABG in a.m. 2 multiple comorbidities including hypertension, hyperlipidemia, type 2 diabetes , single kidney, family history of premature coronary artery disease. Recommendation: Reviewed chest x-ray, reviewed his bedside spirometry, reviewed his clinical history, hence the patient was cleared for surgery, considered low operative risk, in the meantime I have recommended bedside incentive spirometry , and we'll follow postoperatively. Time with Patient: Greater than 30
--- NOTE | 2018-05-10 15:11 | P.PN ---
Subjective Progress Note Date: 05/10/18 Principal diagnosis: Left main disease with severe triple vessel coronary artery disease. Previous medical history of hypertension, hyperlipidemia, diabetes, never smoker, mild COPD with preoperative FEV1 64% of predicted, GERD, family history of premature coronary artery disease, solitary kidney after organ donation. The patient is currently sitting up in chair in no acute distress. Denies any chest pain or shortness of breath. No new questions at this time. Objective - Vital Signs Vital signs: Vital Signs Temp 97.3 F L 05/10/18 11:32 Pulse 69 05/10/18 11:32 Resp 14 05/10/18 11:32 BP 154/103 05/10/18 11:32 Pulse Ox 93 L 05/10/18 11:32 Intake & Output 05/09/18 05/10/18 05/10/18 18:59 06:59 18:59 Intake Total 950 1090.532 260 Output Total 770 600 500 Balance 180 490.532 -240 Weight 107.3 kg Intake: IV 475 525 20 Sodium Chloride 0.9% 1, 100 20 000 ml @ 100 mls/hr IV . Q10H [facility] Rx#:[id number] Sodium Chloride 0.9% 1, 525 000 ml In Empty Bag 1 bag @ 75 mls/hr IV .[id number] [facility] Rx#:[id number] Intake, IV Titration 345.532 Amount Heparin Sod,Pork in 0.45% 345.532 NaCl 25,000 unit In 0.45 % NaCl 1 500ml.bag @ 9. 586 UNITS/KG/HR 20 mls/hr IV .Q24H [facility] Rx#: [id number] Oral 475 220 240 Output: Urine 770 600 500 Other: Voiding Method Toilet Toilet # Voids 1 1 - Constitutional General appearance: Present: cooperative, no acute distress - Respiratory Details: Lungs sounds clear bilaterally. Respirations even, nonlabored. Currently on room air with oxygen saturation 93%. - Cardiovascular Details: S1, S2 present. Regular rate and rhythm, sinus rhythm on telemetry. Palpable peripheral pulses bilaterally. No edema present. No calf pain or tenderness noted. - Gastrointestinal Gastrointestinal Comment(s): Abdomen soft, nontender, nondistended. Active bowel sounds present 4 quadrants. Tolerating diet. - Genitourinary Genitourinary Comment(s): Continues to void clear, yellow urine. - Integumentary Integumentary Comment(s): Skin is warm and dry with evidence of good perfusion. - Neurologic Neurologic: Present: CNII-XII intact - Musculoskeletal Musculoskeletal: Present: gait normal, strength equal bilaterally - Psychiatric Psychiatric: Present: A&O x's 3, appropriate affect, intact judgment & insight - Allied health notes Allied health notes reviewed: nursing - Labs CBC & Chem 7: 05/10/18 04:58 05/10/18 04:58 Labs: Abnormal Lab Results - Last 24 Hours (Table) 05/09/18 05/09/18 05/09/18 Range/Units 13:43 13:43 16:17 Hgb 12.4 L (13.0-17.5) gm/dL Hct 38.2 L (39.0-53.0) % APTT 35.0 H (22.0-30.0) sec Glucose 210 H (74-99) mg/dL POC Glucose (mg/dL) (75-99) mg/dL Hemoglobin A1c (4.0-6.0) % Triglycerides 349 H (<150) mg/dL Crossmatch 05/09/18 05/09/18 05/09/18 Range/Units 16:17 17:54 18:44 Hgb (13.0-17.5) gm/dL Hct (39.0-53.0) % APTT (22.0-30.0) sec Glucose (74-99) mg/dL POC Glucose (mg/dL) 139 H 113 H (75-99) mg/dL Hemoglobin A1c 7.0 H (4.0-6.0) % Triglycerides (<150) mg/dL Crossmatch 05/09/18 05/10/18 05/10/18 Range/Units 20:50 04:58 04:58 Hgb (13.0-17.5) gm/dL Hct (39.0-53.0) % APTT (22.0-30.0) sec Glucose 138 H (74-99) mg/dL POC Glucose (mg/dL) 196 H (75-99) mg/dL Hemoglobin A1c (4.0-6.0) % Triglycerides (<150) mg/dL Crossmatch See Detail 05/10/18 05/10/18 Range/Units 04:58 06:50 Hgb 12.2 L (13.0-17.5) gm/dL Hct 38.4 L (39.0-53.0) % APTT (22.0-30.0) sec Glucose (74-99) mg/dL POC Glucose (mg/dL) 142 H (75-99) mg/dL Hemoglobin A1c (4.0-6.0) % Triglycerides (<150) mg/dL Crossmatch - Imaging and Cardiology Chest x-ray: report reviewed, image reviewed Results of carotid Dopplers, PFT reviewed Assessment and Plan (1) Coronary artery disease Current Visit: Yes Status: Chronic Code(s): I25.10 - ATHSCL HEART DISEASE OF [place] CORONARY ARTERY W/O ANG PCTRS SNOMED Code(s): 49540619 (2) Left main coronary artery disease Current Visit: Yes Status: Chronic Code(s): I25.10 - ATHSCL HEART DISEASE OF [place] CORONARY ARTERY W/O ANG PCTRS SNOMED Code(s): 868548716 (3) Hypertension Current Visit: Yes Status: Chronic Code(s): I10 - ESSENTIAL (PRIMARY) HYPERTENSION SNOMED Code(s): 31979338 (4) Hyperlipidemia Current Visit: Yes Status: Chronic Code(s): E78.5 - HYPERLIPIDEMIA, UNSPECIFIED SNOMED Code(s): 93415623 (5) Diabetes mellitus Current Visit: Yes Status: Chronic Code(s): E11.9 - TYPE 2 DIABETES MELLITUS WITHOUT COMPLICATIONS SNOMED Code(s): 83434521 (6) Single kidney Current Visit: Yes Status: Chronic Code(s): Z90.5 - ACQUIRED ABSENCE OF KIDNEY SNOMED Code(s): 743149147 (7) Family history of premature coronary artery disease Current Visit: Yes Status: Chronic Code(s): Z82.49 - FAMILY HX OF ISCHEM HEART DIS AND OTH DIS OF THE CIRC SYS SNOMED Code(s): 911718290 Plan: 1. Continue aspirin, statin, beta katia therapy. Continue heparin IV continuous. 2. Preoperative testing results reviewed. 3. Preoperative teaching continues. 4. Plan is for coronary artery bypass graft surgery tomorrow, Wednesday, May 11. 5. Nothing to eat or drink after midnight. 6. Encourage incentive spirometry use. 7. More recommendations to follow after surgery complete. Time with Patient: Greater than 30
[2018-05-10 16:05] LABS: Appearance,Urine Clear (Clear); Bilirubin,Urine Negative (Negative); Blood,Urine Negative (Negative); Color,Urine Light Yellow; Glucose,Urine (UA) Negative (Negative); Ketones,Urine Negative (Negative); Leukocyte Esterase,Urine Negative (Negative); Nitrite,Urine Negative (Negative); PH, Urine 6.5 (5.0-8.0); Protein,Urine Negative (Negative); Specific Gravity,Urine 1.008 (1.001-1.035); Urobilinogen,Urine <2.0 mg/dL (<2.0)
[2018-05-10 17:06] LABS: Glucose,Whole Blood 89 mg/dL (75-99)
[2018-05-10 20:09] LABS: Glucose,Whole Blood 140 mg/dL (75-99)
[2018-05-11] MEDS: HEPARIN SOD,PORK IN 0.45% NACL 25,000 UNIT in 0.45% NACL 1 250ML.BAG IV SCH (02:30)
[2018-05-11 04:55] LABS: Basophils % (A) 1 %; Eosinophils # (A) 0.3 k/uL (0-0.7); Eosinophils % (A) 4 %; HCT 38.8 % (39.0-53.0); HGB 12.6 gm/dL (13.0-17.5); Lymphocytes # (A) 2.3 k/uL (1.0-4.8); Lymphocytes % (A) 36 %; MCH 27.8 pg (25.0-35.0); MCHC 32.5 g/dL (31.0-37.0); MCV 85.6 fL (80.0-100.0); Mean Platelet Volume 6.8; Monocytes # (A) 0.6 k/uL (0-1.0); Monocytes % (A) 9 %; Neutrophils % (A) 48 %; Platelet Count 231 k/uL (150-450); RBC 4.53 m/uL (4.30-5.90); RDW 13.7 % (11.5-15.5); WBC 6.3 k/uL (3.8-10.6)
[2018-05-11 05:00] LABS: Partial Thromboplastin Time 59.2 sec (22.0-30.0); Prothrombin Time 10.4 sec (9.0-12.0)
[2018-05-11] MEDS ORDERED: PHENYLEPHRINE-0.9% NACL SYG 1 MG/10 ML SYRINGE IV ONE ×4 (05:00)
[2018-05-11] MEDS ORDERED: ASPIRIN 325 MG TAB PO ONE (05:00)
[2018-05-11] MEDS ORDERED: HEPARIN SODIUM,PORCINE 5,000 UNIT in SODIUM CHLORIDE 0.9% 500 ML 500 ML IV ONE (05:00)
[2018-05-11] MEDS ORDERED: NITROGLYCERIN-D5W PMX 50 MG in DEXTROSE/WATER 1 250ML.BAG IV ONE (05:00)
[2018-05-11] MEDS ORDERED: NITROGLYCERIN-D5W PMX 25 MG/250 ML BTL IV ONE (05:00)
[2018-05-11] MEDS ORDERED: PROPOFOL 1,000 MG in EMPTY BAG 1 BAG IV ONE (05:00)
[2018-05-11] MEDS ORDERED: PROTAMINE SULFATE 250 MG in EMPTY BAG 1 BAG IV ONE (05:00)
[2018-05-11] MEDS ORDERED: PROTAMINE SULFATE 10 MG/ML 25 ML VIAL IV ONE ×2 (05:00→08:34)
[2018-05-11] MEDS ORDERED: CALCIUM CHLORIDE 100 MG/ML 10 ML SYRINGE IVP ONE (05:00)
[2018-05-11] MEDS ORDERED: NOREPINEPHRINE 4 MG in SODIUM CHLORIDE 0.9% 250 ML IV SCH (05:00)
[2018-05-11] MEDS ORDERED: ALBUMIN HUMAN 25% 50 ML in EMPTY BAG 1 BAG IVPB ONE (05:00)
[2018-05-11] MEDS ORDERED: CHLORHEXIDINE GLUCONATE 15 ML CUP MUCOUS MEM ONE (05:00)
[2018-05-11] MEDS ORDERED: MAGNESIUM SULFATE SYG 4.06 MEQ/ML SYRINGE IV ONE (05:00)
[2018-05-11] MEDS ORDERED: ceFAZolin 2,000 MG in SODIUM CHLORIDE 0.9% 30 ML IVPB ONE (05:00)
[2018-05-11] MEDS ORDERED: DILTIAZEM 50 MG in SODIUM CHLORIDE 0.9% 40 ML IV SCH (05:00)
[2018-05-11] MEDS ORDERED: METOPROLOL TARTRATE 12.5 MG TAB PO ONE (05:00)
[2018-05-11] MEDS ORDERED: LACTATED RINGERS 1,000 ML IV SCH (05:00)
[2018-05-11] MEDS ORDERED: ATORVASTATIN 10 MG TAB PO ONE (05:00)
[2018-05-11] MEDS ORDERED: HEPARIN SODIUM 1,000 UN/ML (10ML VL) IV ONE (05:00)
[2018-05-11] MEDS ORDERED: DEXTROSE 5% IN WATER 1,000 ML with POTASSIUM CHLORIDE 110 MEQ, MAGNESIUM SULFATE 16 MEQ... IV SCH ×5 (05:00)
[2018-05-11] MEDS ORDERED: ALBUMIN HUMAN 5% 500 ML in EMPTY BAG 1 BAG IVPB ONE ×6 (05:00)
[2018-05-11] MEDS ORDERED: ceFAZolin 2 GM in SODIUM CHLORIDE 0.9% 30 ML IVPB ONE (05:00)
[2018-05-11] MEDS ORDERED: TRANEXAMIC ACID 2,000 MG in SODIUM CHLORIDE 0.9% 180 ML IV ONE (05:00)
[2018-05-11] MEDS ORDERED: SODIUM BICARB 8.4% 50 ML SYR (1 MEQ/ML) IV ONE (05:00)
[2018-05-11] MEDS ORDERED: PHENYLEPHRINE 40 MG in SODIUM CHLORIDE 0.9% 250 ML IV ONE (05:00)
[2018-05-11] MEDS ORDERED: MANNITOL 25% 12.5 GM/50 ML VIAL IV ONE ×2 (05:00)
[2018-05-11] MEDS ORDERED: PAPAVERINE 360 MG in SODIUM CHLORIDE 0.9% 90 ML IV ONE (05:00)
[2018-05-11] MEDS ORDERED: INSULIN REGULAR 100 UNIT in SODIUM CHLORIDE 0.9% 100 ML IV ONE (05:00)
[2018-05-11] MEDS ORDERED: DEXTROSE 5% IN WATER 1,000 ML with POTASSIUM CHLORIDE 25 MEQ, SODIUM CHLORIDE 2.5MEQ/ML... IV SCH ×6 (05:00)
[2018-05-11 05:04] LABS: Calcium 9.2 mg/dL (8.4-10.2); Potassium 4.1 mmol/L (3.5-5.1)
[2018-05-11] MEDS ORDERED: MAGNESIUM SULFATE 4 MEQ/ML 10ML VIAL ONE (08:34)
[2018-05-11] MEDS ORDERED: LIDOCAINE 2% SYG (PF) 100 MG/5 ML ONE (08:34)
[2018-05-11] MEDS ORDERED: MIDAZOLAM 2 MG/2 ML VIAL ONE (08:34)
[2018-05-11] MEDS ORDERED: HEPARIN SODIUM,PORCINE 10,000 UNIT/ML 1 ML VIAL ONE (08:34)
[2018-05-11] MEDS ORDERED: fentaNYL (PF) 50 MCG/ML 2 ML AMP ONE (08:34)
[2018-05-11] MEDS ORDERED: PROPOFOL 10 MG/ML 20 ML VIAL IV ONE (08:34)
[2018-05-11] MEDS ORDERED: TRANEXAMIC ACID 1,000 MG/10 ML VIAL ONE (08:34)
[2018-05-11] MEDS ORDERED: SODIUM CHLORIDE 0.9% IRRIG 1,000 ML BTL IRRIGATION ONE (08:34)
[2018-05-11] MEDS ORDERED: fentaNYL (PF) 50 MCG/ML 50 ML VIAL ONE (08:34)
[2018-05-11] MEDS ORDERED: ELECTROLYTE-R (PH 7.4) 1,000 ML IV.SOLN IV ONE (08:34)
[2018-05-11] MEDS ORDERED: SODIUM CHLORIDE 0.9% 250 ML BAG ONE (08:34)
[2018-05-11] MEDS ORDERED: VECURONIUM 10 MG VIAL IV ONE (08:34)
[2018-05-11 09:40] LABS: ABG Base Excess 1.2 mmol/L; ABG HCO3 26 mmol/L (21-25); ABG Oxygen Saturation 99.7 % (94-97); ABG PCO2 43 mmHg (35-45); ABG PO2 286 mmHg (83-108); ABG TCO2 28 mmol/L (19-24)
[2018-05-11] MEDS: ceFAZolin 1,000 MG in SODIUM CHLORIDE 0.9% IRRIGATIO 1,000 ML IRRIGATION ONE ×3 (10:32→14:54)
[2018-05-11 11:38] LABS: ABG Base Excess 0.1 mmol/L; ABG HCO3 25 mmol/L (21-25); ABG Oxygen Saturation 99.7 % (94-97); ABG PCO2 42 mmHg (35-45); ABG PH 7.39 (7.35-7.45); ABG PO2 272 mmHg (83-108); ABG TCO2 27 mmol/L (19-24)
[2018-05-11 12:01] LABS: ABG Base Excess -0.6 mmol/L; ABG HCO3 25 mmol/L (21-25); ABG Oxygen Saturation 99.7 % (94-97); ABG PCO2 45 mmHg (35-45); ABG PH 7.36 (7.35-7.45); ABG PO2 331 mmHg (83-108); ABG TCO2 26 mmol/L (19-24)
[2018-05-11 12:40] LABS: ABG Base Excess 0.7 mmol/L; ABG HCO3 25 mmol/L (21-25); ABG Oxygen Saturation 99.6 % (94-97); ABG PCO2 40 mmHg (35-45); ABG PH 7.41 (7.35-7.45); ABG PO2 223 mmHg (83-108); ABG TCO2 27 mmol/L (19-24)
[2018-05-11 13:12] LABS: ABG HCO3 26 mmol/L (21-25); ABG Oxygen Saturation 99.7 % (94-97); ABG PCO2 46 mmHg (35-45); ABG PH 7.36 (7.35-7.45); ABG PO2 243 mmHg (83-108); ABG TCO2 27 mmol/L (19-24)
[2018-05-11 14:09] LABS: ABG Base Excess -1.3 mmol/L; ABG HCO3 25 mmol/L (21-25); ABG Oxygen Saturation 85.9 % (94-97); ABG PCO2 47 mmHg (35-45); ABG PH 7.33 (7.35-7.45); ABG TCO2 26 mmol/L (19-24)
[2018-05-11] MEDS: CLEVIDIPINE BUTYRATE 25 MG in EMPTY BAG 1 BAG IV ONE ×4 (15:26→23:02)
[2018-05-11] MEDS: ATORVASTATIN 20 MG TAB PO SCH (15:30)
[2018-05-11] MEDS: GLIMEPIRIDE 2 MG TAB PO SCH (15:30)
[2018-05-11] MEDS: ASPIRIN 81 MG PO SCH (15:30)
[2018-05-11] MEDS: INSULIN ASPART 100 UNIT/ML 1 ML 10 ML VIAL SQ SCH (15:30)
[2018-05-11] MEDS: EZETIMIBE 10 MG TAB PO SCH (15:30)
[2018-05-11] MEDS: ISOSORBIDE MONONITRATE ER 30 MG TAB.ER.24H PO SCH (15:30)
[2018-05-11] MEDS: METOPROLOL TARTRATE 25 MG TAB PO SCH (15:31)
[2018-05-11] MEDS ORDERED: IPRATROPIUM-ALBUTEROL 3 ML NEB INHALATION PRN (15:31)
[2018-05-11] MEDS: MUPIROCIN 2% OINT 22 GM TUBE NASAL SCH ×2 (15:31→22:48)
[2018-05-11] MEDS: LOSARTAN 50 MG TAB PO SCH (15:31)
[2018-05-11] MEDS ORDERED: Magnesium Replacement Protocol 1 EACH MISC MISCELLANE PRN (15:31)
[2018-05-11] MEDS ORDERED: BENZOCAINE/MENTHOL LOZENG 1 EACH LOZENGE MUCOUS MEM PRN (15:31)
[2018-05-11] MEDS ORDERED: CALCIUM CHLORIDE 1,000 MG in SODIUM CHLORIDE 0.9% 100 ML IV PRN (15:31)
[2018-05-11] MEDS ORDERED: Potassium Replacement Protocol 1 EACH MISC MISCELLANE PRN (15:31)
[2018-05-11] MEDS ORDERED: ONDANSETRON 4 MG/2 ML VIAL IVP PRN (15:31)
[2018-05-11] MEDS ORDERED: METOCLOPRAMIDE 5 MG/ML 2 ML VIAL IVP PRN (15:31)
[2018-05-11] MEDS ORDERED: DEXTROSE 5% IN WATER 100 ML with AMIODARONE 150 MG IV PRN (15:31)
[2018-05-11] MEDS ORDERED: Phosphorus Replacement Protoco 1 EACH MISC MISCELLANE PRN (15:31)
[2018-05-11] MEDS ORDERED: NITROGLYCERIN-D5W PMX 50 MG in DEXTROSE/WATER 1 250ML.BAG IV SCH (15:31)
[2018-05-11] MEDS ORDERED: AMIODARONE 450 MG in DEXTROSE 5% IN WATER 250 ML IV PRN ×2 (15:31)
[2018-05-11 15:54] LABS: ABG Potassium Whole Blood 3.9 mmol/L (3.4-4.5)
[2018-05-11 15:55] LABS: ABG Sodium Whole Blood 142 mmol/L (135-146)
[2018-05-11 15:56] LABS: ABG Sodium Whole Blood 141 mmol/L (135-146)
[2018-05-11 15:57] LABS: ABG Potassium Whole Blood 4.1 mmol/L (3.4-4.5); ABG Sodium Whole Blood 139 mmol/L (135-146)
[2018-05-11 15:58] LABS: ABG Potassium Whole Blood 5.6 mmol/L (3.4-4.5); ABG Sodium Whole Blood 136 mmol/L (135-146)
[2018-05-11 15:59] LABS: ABG Potassium Whole Blood 5.6 mmol/L (3.4-4.5); ABG Sodium Whole Blood 137 mmol/L (135-146)
[2018-05-11 16:00] LABS: ABG PO2 54 mmHg (83-108); ABG Potassium Whole Blood 4.8 mmol/L (3.4-4.5); ABG Sodium Whole Blood 140 mmol/L (135-146)
--- NOTE | 2018-05-11 16:10 | P.PN ---
Subjective Progress Note Date: 05/11/18 Principal diagnosis: Status post CABG postoperative day #0. This is a 63-year-old white male, known history of hypertension, dyslipidemia, type 2 diabetes, nonsmoker, nondrinker, strong family history of premature coronary artery disease, known history of GERD and previous Sacha's fundoplication. Patient had previous history of kidney donation to his sister. Over the last couple of months, the patient has been noticing some chest discomfort, and some dyspnea on minimal exertion, which he thought initially could be related to his GERD symptoms coming back. However his symptoms where becoming more frequently, and abating with rest. Patient eventually underwent a full cardiac workup including cardiac catheterization which showed significant left main disease approximately 80% proximal LAD stenosis of 70-80% and 99% stenosis of the proximal left circumflex and 80% stenosis in the midsegment. Mid RCA was 90% stenosed. Considering the findings, patient was referred to cardiac surgery, and he is scheduled to undergo surgery tomorrow. Patient denies any previous pulmonary history, never smoked, has been quite active until the last couple of months when he has been noticing worsening symptoms of dyspnea on exertion and chest discomfort. 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 And he is usually quite active in his job physically. Chest x-ray showed some linear scarring at the right base, unchanged compared to a chest x-ray in 2016. Spirometry showed mild to moderate restriction. Reevaluated today on 05/11/2018, patient just came back to the ICU from his myocardial revascularization. Patient is now on mechanical ventilation, ventilator settings are tidal volume of 550, IMV rate of 14, FiO2 of 100%, and PEEP of 10. ABG and chest x-ray are pending. His peak airway pressure is about 28, plateau pressure is 22. Patient's O2 saturation is 100% on those vent settings. Again x-ray and ABG are pending. Patient is hemodynamically stable, on mechanical ventilation, in no distress. Objective - Vital Signs Vital signs: Vital Signs Temp 98.3 F 05/11/18 04:00 Pulse 61 05/11/18 04:00 Resp 18 05/11/18 04:00 BP 157/74 05/11/18 04:00 Pulse Ox 94 L 05/11/18 04:00 Intake & Output 05/10/18 05/11/18 05/11/18 18:59 06:59 18:59 Intake Total 1088.36 381.64 33 Output Total 2450 775 2600 Balance -1361.64 -393.36 -2567 Weight 107.3 kg Intake: IV 240 140 33 0.9 carrier 140 Sodium Chloride 0.9% 1, 240 000 ml @ 100 mls/hr IV . Q10H SEJAL Rx#:[id number] Intake, IV Titration 8.36 241.64 Amount Heparin Sod,Pork in 0.45% 8.36 241.64 NaCl 25,000 unit In 0.45 % NaCl 1 250ml.bag @ 15. 586 UNITS/KG/HR 16.72 mls /hr IV .[id number] SEJAL Rx#: [id number] Oral 840 Output: Urine 2450 775 400 Estimated Blood Loss 2200 Other: Voiding Method Toilet Toilet Urinal # Voids 1 - Exam Physical Exam: 63-year-old white male intubated, on mechanical ventilation, sedated. Head: Atraumatic, normocephalic, endotracheal tube, orogastric tube are intact. HEENT:[Neck is supple.] [No neck masses.] [No thyromegaly.] [No JVD.] Chest: [Symmetrical chest expansion, diminished breath sounds at the bases, no rhonchi and no wheezes. Chest tubes are intact.] Cardiac Exam: [Normal S1 and S2, no S3 gallop, no murmur. As the pericardial rub.] Abdomen: [Obese, Soft, nontender, no megaly, no rebound, no guarding, normal bowel sounds.] Extremities: [No clubbing, no edema, no cyanosis. Both lower extremities are wrapped with Orion wraps.] Neurological Exam: Cannot be assessed. Patient is sedated on mechanical ventilation. - Labs CBC & Chem 7: 05/11/18 04:22 05/11/18 04:22 Labs: Abnormal Lab Results - Last 24 Hours (Table) 05/10/18 05/10/18 05/10/18 Range/Units 04:58 20:08 20:46 Hgb (13.0-17.5) gm/dL Hct (39.0-53.0) % APTT 63.2 H (22.0-30.0) sec ABG pH (7.35-7.45) ABG pCO2 (35-45) mmHg ABG pO2 (83-108) mmHg ABG HCO3 (21-25) mmol/L ABG Total CO2 (19-24) mmol/L ABG O2 Saturation (94-97) % ABG Hematocrit (34.0-46.0) % ABG Potassium (3.4-4.5) mmol/L ABG Ionized Calcium (4.5-5.3) mg/dL ABG Glucose (75-99) mg/dL Hemoglobin (13.0-17.5) gm/dL Glucose (74-99) mg/dL POC Glucose (mg/dL) 140 H (75-99) mg/dL Arterial Blood Potassium (3.4-4.5) mmol/L Arterial Blood Glucose (75-99) mg/dL Crossmatch See Detail 05/11/18 05/11/18 05/11/18 Range/Units 04:22 04:22 04:22 Hgb 12.6 L (13.0-17.5) gm/dL Hct 38.8 L (39.0-53.0) % APTT 59.2 H (22.0-30.0) sec ABG pH (7.35-7.45) ABG pCO2 (35-45) mmHg ABG pO2 (83-108) mmHg ABG HCO3 (21-25) mmol/L ABG Total CO2 (19-24) mmol/L ABG O2 Saturation (94-97) % ABG Hematocrit (34.0-46.0) % ABG Potassium (3.4-4.5) mmol/L ABG Ionized Calcium (4.5-5.3) mg/dL ABG Glucose (75-99) mg/dL Hemoglobin (13.0-17.5) gm/dL Glucose 138 H (74-99) mg/dL POC Glucose (mg/dL) (75-99) mg/dL Arterial Blood Potassium (3.4-4.5) mmol/L Arterial Blood Glucose (75-99) mg/dL Crossmatch 05/11/18 05/11/18 05/11/18 Range/Units 09:38 11:37 11:59 Hgb (13.0-17.5) gm/dL Hct (39.0-53.0) % APTT (22.0-30.0) sec ABG pH (7.35-7.45) ABG pCO2 (35-45) mmHg ABG pO2 286 H 272 H 331 H (83-108) mmHg ABG HCO3 26 H (21-25) mmol/L ABG Total CO2 28 H 27 H 26 H (19-24) mmol/L ABG O2 Saturation 99.7 H 99.7 H 99.7 H (94-97) % ABG Hematocrit 29 L (34.0-46.0) % ABG Potassium (3.4-4.5) mmol/L ABG Ionized Calcium 4.3 L (4.5-5.3) mg/dL ABG Glucose 125 H 136 H 127 H (75-99) mg/dL Hemoglobin 12.1 L 11.1 L 9.6 L (13.0-17.5) gm/dL Glucose (74-99) mg/dL POC Glucose (mg/dL) (75-99) mg/dL Arterial Blood Potassium (3.4-4.5) mmol/L Arterial Blood Glucose 125 H 136 H 127 H (75-99) mg/dL Crossmatch 05/11/18 05/11/18 05/11/18 Range/Units 12:39 13:11 14:07 Hgb (13.0-17.5) gm/dL Hct (39.0-53.0) % APTT (22.0-30.0) sec ABG pH 7.33 L (7.35-7.45) ABG pCO2 46 H 47 H (35-45) mmHg ABG pO2 223 H 243 H 54 L* (83-108) mmHg ABG HCO3 26 H (21-25) mmol/L ABG Total CO2 27 H 27 H 26 H (19-24) mmol/L ABG O2 Saturation 99.6 H 99.7 H 85.9 L (94-97) % ABG Hematocrit 28 L 30 L 28 L (34.0-46.0) % ABG Potassium 5.6 H 5.6 H 4.8 H (3.4-4.5) mmol/L ABG Ionized Calcium 4.3 L 4.4 L (4.5-5.3) mg/dL ABG Glucose 221 H 217 H 176 H (75-99) mg/dL Hemoglobin 9.2 L 9.8 L 9.0 L (13.0-17.5) gm/dL Glucose (74-99) mg/dL POC Glucose (mg/dL) (75-99) mg/dL Arterial Blood Potassium 5.6 H 5.6 H 4.8 H (3.4-4.5) mmol/L Arterial Blood Glucose 221 H 217 H 176 H (75-99) mg/dL Crossmatch Microbiology - Last 24 Hours (Table) 05/10/18 15:15 Urine Culture - Preliminary Urine,Clean Catch Assessment and Plan Assessment: Impression: 1 triple-vessel coronary artery disease, with left main coronary artery disease , patient is status post CABG, postoperative day #1. Presently on mechanical ventilation, and this is expected, 2 multiple comorbidities including hypertension, hyperlipidemia, type 2 diabetes , single kidney, family history of premature coronary artery disease. Recommendation: Continue ventilatory support, will review the chest x-ray and ABG and further ventilator setting changes will be made accordingly. Will likely extubate the patient later on this evening. We'll continue to follow. Time with Patient: Greater than 30
[2018-05-11 16:11] LABS: Glucose,Whole Blood 127 mg/dL (75-99)
[2018-05-11] MEDS: IPRATROPIUM-ALBUTEROL 3 ML NEB INHALATION SCH ×3 (16:19→19:16)
[2018-05-11] MEDS: LACTATED RINGERS 1,000 ML IV SCH (16:19)
[2018-05-11] MEDS: CLEVIDIPINE BUTYRATE 25 MG in EMPTY BAG 1 BAG IV SCH (16:21)
[2018-05-11] MEDS: ceFAZolin IN SWFI 2 GM/20 ML SYRINGE IVP SCH (16:23)
[2018-05-11 16:25] LABS: Basophils % (A) 0 %; Eosinophils # (A) 0.1 k/uL (0-0.7); Eosinophils % (A) 2 %; HCT 31.6 % (39.0-53.0); HGB 10.4 gm/dL (13.0-17.5); Lymphocytes # (A) 1.1 k/uL (1.0-4.8); Lymphocytes % (A) 19 %; MCH 28.3 pg (25.0-35.0); MCHC 32.9 g/dL (31.0-37.0); MCV 86.1 fL (80.0-100.0); Mean Platelet Volume 7.2; Monocytes # (A) 0.4 k/uL (0-1.0); Monocytes % (A) 6 %; Neutrophils # (A) 3.9 k/uL (1.3-7.7); Neutrophils % (A) 72 %; Platelet Count 138 k/uL (150-450); RBC 3.67 m/uL (4.30-5.90); RDW 13.8 % (11.5-15.5); WBC 5.5 k/uL (3.8-10.6)
--- NOTE | 2018-05-11 16:26 | XR ---
EXAMINATION TYPE: XR chest 1V portable DATE OF EXAM: 05/11/2018 COMPARISON: 05/09/2018 HISTORY: Post cardiac surgery. TECHNIQUE: Single frontal view of the chest is obtained. FINDINGS: There is are new bilateral thoracostomy tubes, [place]-Gayle catheter and the pulmonary outflo w tract, endotracheal tube at the level of the aortic arch, and enteric tube with its fenestrated por tion just below the gastroesophageal junction. Median sternotomy wires and mediastinal clips are now noted. Heart is mildly enlarged. No sizable residual pneumothorax is seen. New right midlung atelecta sis is present. There is a probable single mediastinal drain. IMPRESSION: Lines and tubes as described above with new right midlung atelectasis and postoperative changes the chest.
[2018-05-11] MEDS: PROPOFOL 1,000 MG in EMPTY BAG 1 BAG IV SCH ×3 (16:27→21:15)
[2018-05-11 16:32] LABS: ABG Base Excess 0.4 mmol/L; ABG HCO3 25 mmol/L (21-25); ABG Oxygen Saturation 98.5 % (94-97); ABG PCO2 42 mmHg (35-45); ABG PH 7.39 (7.35-7.45); ABG PO2 103 mmHg (83-108); ABG TCO2 27 mmol/L (19-24)
[2018-05-11 16:33] LABS: Partial Thromboplastin Time 22.2 sec (22.0-30.0); Prothrombin Time 10.9 sec (9.0-12.0)
[2018-05-11 16:37] LABS: Ionized Calcium 4.9 mg/dL (4.5-5.3)
[2018-05-11 16:43] LABS: Albumin 2.9 g/dL (3.5-5.0); Calcium 8.2 mg/dL (8.4-10.2); Magnesium 2.5 mg/dL (1.6-2.3); Potassium 4.6 mmol/L (3.5-5.1); Total Bilirubin 0.6 mg/dL (0.2-1.3); Total Protein 5.1 g/dL (6.3-8.2)
[2018-05-11] MEDS: hydrALAZINE HCL 20 MG/ML 1 ML VIAL IVP PRN (16:43)
[2018-05-11] MEDS: MORPHINE SULFATE 2 MG/ML SYRINGE IVP PRN ×2 (17:01→19:50)
[2018-05-11 17:48] LABS: Glucose,Whole Blood 128 mg/dL (75-99)
[2018-05-11] MEDS: INSULIN REGULAR 100 UNIT in SODIUM CHLORIDE 0.9% 100 ML IV SCH (17:53)
[2018-05-11 17:57] LABS: ABG Base Excess -3.5 mmol/L; ABG HCO3 23 mmol/L (21-25); ABG PCO2 50 mmHg (35-45); ABG PH 7.28 (7.35-7.45); ABG TCO2 25 mmol/L (19-24)
[2018-05-11 18:20] LABS: ABG PO2 55 mmHg (83-108)
[2018-05-11] MEDS: ACETAMINOPHEN IV (For NPO) 1,000 MG in EMPTY BAG 1 BAG IVPB SCH ×2 (18:30→23:59)
--- NOTE | 2018-05-11 18:41 | XR ---
EXAMINATION TYPE: XR chest 1V DATE OF EXAM: 05/11/2018 COMPARISON: Today HISTORY: Short of breath TECHNIQUE: Single frontal view of the chest is obtained. FINDINGS: There is endotracheal tube 2.8 cm from the marshall. Right jugular catheter has tip in the r ight renal artery. There is patchy bilateral atelectasis. There is nasogastric tube with the tip over the gastric fundus. There are bilateral chest tubes. I see no pneumothorax. IMPRESSION: No heart failure. Patchy bilateral atelectasis slightly worse than exam 2 hours ago.
[2018-05-11] MEDS: methylPREDNISolone SOD SUCCI 125 MG/2 ML VIAL IV SCH (18:52)
[2018-05-11 19:03] LABS: Glucose,Whole Blood 179 mg/dL (75-99)
--- NOTE | 2018-05-11 19:05 | OP ---
OPERATIVE REPORT DATE OF THE SURGERY: 05/11/2018. SURGEON: Dr. Darshan Butler. QUALITY CONTROL SPECIALIST: FELIPE Garibay PREOPERATIVE DIAGNOSES: Triple-vessel coronary artery disease with left main disease, overall preserved left ventricular function, hyperlipidemia, hypertension, diabetes, obesity. POSTOPERATIVE DIAGNOSES: Triple-vessel coronary artery disease with left main disease, overall preserved left ventricular function, hyperlipidemia, hypertension, diabetes, obesity. PROCEDURE: 1. Quadruple coronary artery bypass grafting using the left internal mammary artery sequentially to the diagonal artery, then to the left anterior descending artery, reverse saphenous vein graft from the aorta to the posterior descending artery, reverse saphenous vein graft from the aorta to the high obtuse marginal artery. 2. Endoscopic harvesting of the right greater saphenous vein. 3. Intraoperative transesophageal echocardiogram and epiaortic scanning. 4. Intraoperative graft flow measurements using the Andel-Stim system. INDICATIONS FOR SURGERY: The patient is a 63-year-old gentleman who had a positive stress test as an outpatient with active chest pain, symptoms attributed to GERD initially. The patient had a cardiac catheterization that showed distal left main as well as per significant mid RCA lesions. He was kept in the hospital, preopped and we are proceeding today with a coronary artery bypass grafting. The STS risk was discussed with him. He understood it and agreed to proceed. DESCRIPTION OF THE PROCEDURE: Patient in supine position. A right internal jugular [place]-Gayle catheter and a left radial arterial line were placed. A right radial and right brachial arterial line were attempted and did fail by anesthesia. The patient had normal PA pressure and good cardiac index. Subsequently he was brought to the operating room where general endotracheal anesthesia was induced uneventfully. A Hannon catheter was inserted. The patient received 2 g of cefazolin intravenously. The chest, abdomen and both lower extremities were prepped and draped using ChloraPrep. Ioban was used to cover the skin. Transesophageal echocardiogram confirmed the preoperative finding of overall preserved left ventricular function and no significant valvular abnormality. Midline sternotomy was performed and the bone was reasonably dense. The left hemisternum was elevated and left internal mammary artery was harvested in a totally skeletonized fashion. It was around 2 mm in diameter. The left pleura was intentionally opened in this process and was drained with a 19-Greek Garrison drain. The right pleura had a breach in it and was drained with another 19-Greek Garrison drain. In the same setting, the right greater saphenous vein was harvested endoscopically from groin to above ankle level after administration of 2500 units of heparin. The branches were tied. The leg incisions were closed over drain. The vein appeared to be of good quality around 4 mm in diameter. Mediastinal fat was transected between 2 ties and epiaortic scanning revealed no protruding atheroma in the ascending aorta, but some concentric intimal thickening. Pericardium was opened in an inverted T-fashion and a pericardial cradle was created. Findings included extremely short aorta and a normal size heart with some mild visible calcific coronary artery disease. After systemic heparinization and after placement of respective pledgeted pursestring, aortic cannulation in the proximal arch with a 21-Greek soft flow cannula and venous cannulation with a dual stage via the right atrial appendage was performed. Antegrade as well as retrograde cardioplegia catheter were placed. Cardiopulmonary bypass was initiated and patient temperature was allowed to drift down to 34 degrees Celsius. We looked at the target and appeared that the LAD, diagonal artery, high obtuse marginal artery and the posterior descending artery would be site for bypass. To note that the distal circumflex artery as seen on cardiac catheterization was small, non bypassable. The aorta was clamped and during aortic clamping, myocardial protection was achieved with initial dose of antegrade cold blood cardioplegia followed by dose of retrograde cold blood cardioplegia. All subsequent doses were given retrograde at 15 minutes intervals. The 1st distal anastomosis was seen. A good segment of vein and the posterior descending artery which was opened was around 1.75 mm in diameter with some posterior wall disease to it and the anastomosis was completed using Prolene 7-0 in a continuous fashion. There was excellent flow through the vein. The vein was cut to length and we punched a 4 mm button off the anterior aspect of the proximal aorta and the proximal anastomosis was completed using Prolene 6-0 in a continuous fashion. Subsequently, the lateral wall was exposed and another segment of reverse saphenous vein graft was anastomosed to the high obtuse marginal artery very proximal as it went into the myocardium. At that level, it was around 1.75 mm in diameter and thin-walled and the anastomosis was completed using Prolene 7-0 in continuous fashion. That vein also had a very good flow into it and it was cut to length and anastomosed to the left lateral aspect of the mid-ascending aorta after punching a hole of around 5 mm using Prolene 6- 0 in a continuous fashion. Subsequently, a deep groove was made in the left pleura pericardial fat, so the mammary could be sequential to the diagonal artery and the LAD without kinking. So, the 3rd distal anastomosis was between the left internal mammary artery and the high diagonal artery which was opened was around 1.75 mm in diameter and that anastomosis was completed in a parallel [id number] fashion using Prolene 7-0 in continuous fashion. There was excellent flow into the distal end of the mammary at the completion of the [id number] anastomosis. Rewarming was started as we completed the fourth and last distal anastomosis between the end of the left internal mammary artery and the side of the mid to distal aspect of the left anterior descending artery which was opened was around 2 mm in diameter using Prolene 7-0 in continuous fashion. Flow was reestablished into the mammary artery. De-airing maneuvers were followed. The patient was given lidocaine and magnesium. Then the aorta was unclamped. The patient regained spontaneous sinus rhythm. After a period of reperfusion, he was weaned off cardioplegia bypass without the need of any inotropic or vasopressor support. SHAILA showed good LV function. FloSeal was placed on the PDA anastomosis and the left internal mammary artery anastomosis as there was some needle hole bleeding sites. Two nineteen-Greek Garrison drains were placed, 1 in the posterior pericardium and 1 substernally. Test dose and then full dose protamine was given. Decannulation followed. The venous cannulation required reinforcement with a pledgeted Prolene 4-0. Two monopolar atrial pacing wires were affixed to the right atrial pursestrings. Graft flow measurements of all conduits with the medistim system showed excellent functioning grafts. After ensuring adequate hemostasis and hemodynamics and after correct sponge, instrument, and needle count, the pericardial fat was approximated over the aorta and the graft and the heart and then the sternum was approximated using 5 figure-of- eight pineal cable after interposing fibular between the sternal edges. Thorough irrigation of cefazolin followed. The rest of the closure proceeded in layers. The patient did not receive any blood bank product but received 600 mL of Cell Saver blood. He was transferred to the ICU in stable condition with excellent hemodynamics on low- dose nitroglycerin. MMODL / IJN: [id number] / RAMÍREZ
[2018-05-11 19:06] LABS: Basophils % (A) 0 %; Eosinophils # (A) 0.1 k/uL (0-0.7); Eosinophils % (A) 1 %; HCT 35.7 % (39.0-53.0); HGB 12.1 gm/dL (13.0-17.5); Lymphocytes # (A) 1.2 k/uL (1.0-4.8); Lymphocytes % (A) 13 %; MCH 29.5 pg (25.0-35.0); MCHC 33.9 g/dL (31.0-37.0); MCV 87.1 fL (80.0-100.0); Mean Platelet Volume 6.9; Monocytes # (A) 0.5 k/uL (0-1.0); Monocytes % (A) 6 %; Neutrophils % (A) 79 %; Platelet Count 204 k/uL (150-450); RDW 13.7 % (11.5-15.5); WBC 8.8 k/uL (3.8-10.6)
[2018-05-11 19:10] LABS: Calcium 8.2 mg/dL (8.4-10.2)
[2018-05-11 19:11] LABS: Potassium 4.4 mmol/L (3.5-5.1)
[2018-05-11 19:19] LABS: Prothrombin Time 10.9 sec (9.0-12.0)
--- NOTE | 2018-05-11 20:14 | PN ---
PROGRESS NOTE Mr. Kumar is going for aortocoronary bypass surgery. His vital signs are stable. S1, S2 heard normally. Lungs are clear. Abdomen and lower extremity exam unchanged. Plan is to proceed with aortocoronary bypass surgery, which will be performed today and I will see him after his operation. MMAISHA / LLOYD: [id number] /
[2018-05-11 20:29] LABS: Glucose,Whole Blood 187 mg/dL (75-99)
[2018-05-11 21:24] LABS: Glucose,Whole Blood 166 mg/dL (75-99)
[2018-05-11 22:11] LABS: ABG Base Excess -2.6 mmol/L; ABG HCO3 23 mmol/L (21-25); ABG Oxygen Saturation 95.7 % (94-97); ABG PCO2 43 mmHg (35-45); ABG PH 7.34 (7.35-7.45); ABG PO2 79 mmHg (83-108); ABG TCO2 25 mmol/L (19-24)
[2018-05-11 22:43] LABS: Basophils % (A) 0 %; Eosinophils % (A) 0 %; HCT 34.6 % (39.0-53.0); HGB 11.4 gm/dL (13.0-17.5); Lymphocytes # (A) 0.5 k/uL (1.0-4.8); Lymphocytes % (A) 6 %; MCH 28.5 pg (25.0-35.0); MCHC 32.9 g/dL (31.0-37.0); MCV 86.5 fL (80.0-100.0); Mean Platelet Volume 6.8; Monocytes # (A) 0.3 k/uL (0-1.0); Monocytes % (A) 4 %; Neutrophils # (A) 6.8 k/uL (1.3-7.7); Neutrophils % (A) 89 %; Platelet Count 174 k/uL (150-450); RBC 4.01 m/uL (4.30-5.90); RDW 13.7 % (11.5-15.5); WBC 7.6 k/uL (3.8-10.6)
[2018-05-11 22:45] LABS: Glucose,Whole Blood 171 mg/dL (75-99)
[2018-05-11] MEDS: HEPARIN SODIUM,PORCINE 5,000 UNIT/ML 1 ML VIAL SQ SCH (22:51)
[2018-05-11 23:18] LABS: Glucose,Whole Blood 165 mg/dL (75-99)
[2018-05-12] MEDS: HEPARIN SODIUM,PORCINE 5,000 UNIT/ML 1 ML VIAL SQ SCH ×3 (00:08→15:08)
[2018-05-12 00:19] LABS: Glucose,Whole Blood 166 mg/dL (75-99)
[2018-05-12] MEDS: methylPREDNISolone SOD SUCCI 125 MG/2 ML VIAL IV SCH ×4 (00:27→18:02)
[2018-05-12] MEDS: ceFAZolin IN SWFI 2 GM/20 ML SYRINGE IVP SCH ×2 (00:30→10:36)
[2018-05-12 01:09] LABS: Glucose,Whole Blood 163 mg/dL (75-99)
[2018-05-12] MEDS: ALBUMIN HUMAN 5% 250 ML in EMPTY BAG 1 BAG IVPB PRN ×2 (02:00→06:33)
[2018-05-12] MEDS: PROPOFOL 1,000 MG in EMPTY BAG 1 BAG IV SCH ×7 (02:05→22:00)
[2018-05-12] MEDS: CLEVIDIPINE BUTYRATE 25 MG in EMPTY BAG 1 BAG IV ONE (02:06)
[2018-05-12 02:22] LABS: Glucose,Whole Blood 159 mg/dL (75-99)
[2018-05-12 02:58] LABS: Glucose,Whole Blood 157 mg/dL (75-99)
[2018-05-12 04:40] LABS: Glucose,Whole Blood 154 mg/dL (75-99)
[2018-05-12] MEDS: MORPHINE SULFATE 2 MG/ML SYRINGE IVP PRN (05:10)
[2018-05-12 05:33] LABS: Glucose,Whole Blood 156 mg/dL (75-99)
[2018-05-12 05:35] LABS: Basophils % (A) 0 %; Eosinophils % (A) 0 %; HCT 34.4 % (39.0-53.0); HGB 11.3 gm/dL (13.0-17.5); Lymphocytes # (A) 0.7 k/uL (1.0-4.8); Lymphocytes % (A) 9 %; MCH 28.5 pg (25.0-35.0); MCHC 32.7 g/dL (31.0-37.0); Mean Platelet Volume 6.8; Monocytes # (A) 0.3 k/uL (0-1.0); Monocytes % (A) 4 %; Neutrophils # (A) 7.5 k/uL (1.3-7.7); Neutrophils % (A) 87 %; Platelet Count 175 k/uL (150-450); RBC 3.96 m/uL (4.30-5.90); RDW 13.8 % (11.5-15.5); WBC 8.7 k/uL (3.8-10.6)
[2018-05-12] MEDS: ACETAMINOPHEN IV (For NPO) 1,000 MG in EMPTY BAG 1 BAG IVPB SCH ×3 (05:50→18:02)
[2018-05-12 05:52] LABS: Prothrombin Time 10.3 sec (9.0-12.0)
[2018-05-12 05:56] LABS: Partial Thromboplastin Time 19.7 sec (22.0-30.0)
[2018-05-12 06:26] LABS: Glucose,Whole Blood 160 mg/dL (75-99)
[2018-05-12 06:30] LABS: ALT 25 U/L (21-72); AST 32 U/L (17-59); Albumin 3.6 g/dL (3.5-5.0); Alkaline Phosphatase 40 U/L (38-126); Anion Gap 9 mmol/L; Blood Urea Nitrogen 12 mg/dL (9-20); Calcium 8.6 mg/dL (8.4-10.2); Carbon Dioxide 24 mmol/L (22-30); Chloride 107 mmol/L (98-107); Glucose 156 mg/dL (74-99); Magnesium 2.2 mg/dL (1.6-2.3); Potassium 4.5 mmol/L (3.5-5.1); Sodium 140 mmol/L (137-145); Total Bilirubin 0.4 mg/dL (0.2-1.3)
[2018-05-12 07:24] LABS: Glucose,Whole Blood 156 mg/dL (75-99)
[2018-05-12 07:31] LABS: ABG Base Excess 0.8 mmol/L; ABG HCO3 26 mmol/L (21-25); ABG Oxygen Saturation 98.4 % (94-97); ABG PCO2 42 mmHg (35-45); ABG PH 7.39 (7.35-7.45); ABG PO2 104 mmHg (83-108); ABG TCO2 27 mmol/L (19-24)
[2018-05-12] MEDS: IPRATROPIUM-ALBUTEROL 3 ML NEB INHALATION SCH ×4 (07:39→19:59)
[2018-05-12 08:09] LABS: Glucose,Whole Blood 159 mg/dL (75-99)
--- NOTE | 2018-05-12 08:42 | PN ---
PROGRESS NOTE Mr. Kumar underwent aortocoronary bypass surgery yesterday. He had a FINN to LAD and diagonal, a jump graft, vein graft to the obtuse marginal and vein graft to PDA branch of RCA. He is still intubated, deeply sedated, not on any pressors. His vital signs are stable. Apparently, he does respond to commands. S1, S2 heard normally. Lungs reveal diminished air entry. Abdomen and lower extremity exam unchanged. We will continue current supportive management and hopefully patient can be extubated soon. Overall prognosis appears to be good. The patient had a good bypass surgery. We will watch his renal function closely. MMODL / IJN: [id number] / RAMÍREZ
--- NOTE | 2018-05-12 08:56 | P.PN ---
Subjective Progress Note Date: 05/12/18 Principal diagnosis: Left main disease with severe triple vessel coronary artery disease, overall preserved left ventricular function. 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 POD #1 urgent quadruple coronary artery bypass grafting using the left internal mammary artery sequentially to the diagonal artery, then to the left anterior descending artery, reverse saphenous vein graft from the aorta to the posterior descending artery, reverse saphenous vein graft from the aorta to the high obtuse marginal artery. Endoscopic harvesting of the right greater saphenous vein. Intraoperative transesophageal echocardiogram and epi-aortic scanning. Intraoperative graft flow measurements using the [employer] system. The patient is currently lying in bed in no acute distress. Remains sedated on mechanical ventilation secondary to hypoxia last night. Currently hemodynamically stable on no inotropes or pressors. He was started on IV Solu- Medrol per pulmonology. Patient had hematuria coming out of the OR yesterday which has cleared up this morning. Objective - Vital Signs Vital signs: Vital Signs Temp 98.4 F 05/12/18 06:00 Pulse 70 05/12/18 07:42 Resp 28 H 05/12/18 07:00 BP 126/69 05/12/18 07:00 Pulse Ox 96 05/12/18 07:00 Intake & Output 05/11/18 05/12/18 05/12/18 18:59 06:59 18:59 Intake Total 162.886 0126.908 346.777 Output Total 2600 855 35 Balance -2419.301 1051.908 311.777 Weight 109.6 kg Intake: IV 92 1018 89 CO/CI 310 30 LR 50 600 50 pressure bags 9 108 9 Intake, IV Titration 88.699 888.908 257.777 Amount ACETAMINOPHEN IV (For NPO 100 ) 1,000 mg In Empty Bag 1 bag @ 400 mls/hr IVPB Q6HR [facility] Rx#:[id number] Albumin Human 5% 250 ml 350 In Empty Bag 1 bag @ 250 mls/hr IVPB Q1HR PRN Rx#: [id number] Clevidipine Butyrate 25 51.249 mg In Empty Bag 1 bag @ 1 MG/HR 2 mls/hr IV .Q24H [facility] Rx#:[id number] Clevidipine Butyrate 25 50.0 mg In Empty Bag 1 bag @ 1 MG/HR 2 mls/hr IV .Q24H [facility] Rx#:[id number] Dextrose 5% in Water 100 250 ml @ 618 mls/hr IV .Q10M PRN with Amiodarone 150 mg Rx#:[id number] Insulin Regular 100 unit 0.783 53.935 7.777 In Sodium Chloride 0.9% 100 ml @ Per Protocol IV .Q0M [facility] Rx#:[id number] Nitroglycerin-D5w Pmx 50 10.025 mg In Dextrose/Water 1 250ml.bag @ 5 MCG/MIN 1.5 mls/hr IV .Q24H [facility] Rx#: [id number] Propofol 1,000 mg In 27.891 303.724 Empty Bag 1 bag @ Titrate IV .Q0M [facility] Rx#: [id number] ceFAZolin 2,000 mg In 30 Sodium Chloride 0.9% 30 ml @ 999 mls/hr IVPB ONCE ONE Rx#:[id number] Output: Chest Tube Drainage 180 0 Chest Tube Mediastinal 110 0 Left pleural 30 0 Right Pleural 40 0 Urine 400 675 35 Estimated Blood Loss 2200 Other: Voiding Method Indwelling Catheter Indwelling Catheter ABP, PAP, CO, CI - Last Documented Arterial Blood Pressure 106/51 Pulmonary Artery Pressure 28/17 Cardiac Output 6.1 Cardiac Index 2.7 - Constitutional General appearance: Present: no acute distress, obese - Respiratory Details: Lungs sounds diminished bilaterally. Respirations even, nonlabored. Remains on mechanical ventilation. Current ventilator settings assist control mode, FiO2 was 70%, now 65%, tidal volume 450, respiratory rate 28, PEEP 16. ABGs this morning 7.39/42/104/26/98%/0.8 on 70% FiO2. 8.5 ET tube present, 24 at the lip. Mediastinal chest tube to continuous wall suction, 90 mL serosanguineous drainage overnight, 350 mL since surgery. Right pleural chest tube to continuous wall suction, 20 mL serosanguineous draped overnight, 250 mL since surgery. Left pleural chest tube to continuous wall suction, 10 mL serosanguineous drainage overnight, 300 mL since surgery. No air leaks present. - Cardiovascular Details: S1, S2 present. Regular rate and rhythm, sinus rhythm on telemetry. Sternum stable. A/V epicardial pacemaker wires present, connected to generator, VVI mode with backup rate 50 bpm. Palpable peripheral pulses bilaterally. No edema present. No calf pain or tenderness noted. Right internal jugular [place]/ Cordis, left radial arterial line present. Last CO/CI 6.1/2.7 on no inotropes or pressors. Heart hugger, antiembolism stockings, SCDs present. - Gastrointestinal Gastrointestinal Comment(s): Abdomen soft, nontender, nondistended. Hypoactive bowel sounds present 4 quadrants. OG tube present lower intermittent suction with minimal brown drainage. - Genitourinary Genitourinary Comment(s): Hannon present draining clear yellow urine. Output overnight 35-80 mL per hour, 450 mL the last 8 hours. Hematuria was present after OR which has cleared up. - Integumentary Integumentary Comment(s): Skin is warm and dry with evidence of good perfusion. Anterior chest incision well approximated and covered with dry intact dressing. Right lower extremity EVH site well approximated, MELVIN drain present with minimal drainage. - Neurologic Neurologic Comment(s): Currently sedated with propofol, does withdraw to painful stimuli, with lightening of sedation last night patient was awake and following some commands per nursing. - Psychiatric Psychiatric Comment(s): Currently sedated with propofol. - Allied health notes Allied health notes reviewed: nursing - Labs CBC & Chem 7: 05/12/18 05:15 05/12/18 05:15 Labs: Abnormal Lab Results - Last 24 Hours (Table) 05/10/18 05/11/18 05/11/18 Range/Units 04:58 09:38 11:37 RBC (4.30-5.90) m/uL Hgb (13.0-17.5) gm/dL Hct (39.0-53.0) % Plt Count (150-450) k/uL Lymphocytes # (1.0-4.8) k/uL APTT (22.0-30.0) sec ABG pH (7.35-7.45) ABG pCO2 (35-45) mmHg ABG pO2 286 H 272 H (83-108) mmHg ABG HCO3 26 H (21-25) mmol/L ABG Total CO2 28 H 27 H (19-24) mmol/L ABG O2 Saturation 99.7 H 99.7 H (94-97) % ABG Hematocrit (34.0-46.0) % ABG Potassium (3.4-4.5) mmol/L ABG Ionized Calcium (4.5-5.3) mg/dL ABG Glucose 125 H 136 H (75-99) mg/dL Hemoglobin 12.1 L 11.1 L (13.0-17.5) gm/dL Chloride (98-107) mmol/L Carbon Dioxide (22-30) mmol/L Glucose (74-99) mg/dL POC Glucose (mg/dL) (75-99) mg/dL Calcium (8.4-10.2) mg/dL Magnesium (1.6-2.3) mg/dL Alkaline Phosphatase (38-126) U/L Total Protein (6.3-8.2) g/dL Albumin (3.5-5.0) g/dL Arterial Blood Potassium (3.4-4.5) mmol/L Arterial Blood Glucose 125 H 136 H (75-99) mg/dL Crossmatch See Detail 05/11/18 05/11/18 05/11/18 Range/Units 11:59 12:39 13:11 RBC (4.30-5.90) m/uL Hgb (13.0-17.5) gm/dL Hct (39.0-53.0) % Plt Count (150-450) k/uL Lymphocytes # (1.0-4.8) k/uL APTT (22.0-30.0) sec ABG pH (7.35-7.45) ABG pCO2 46 H (35-45) mmHg ABG pO2 331 H 223 H 243 H (83-108) mmHg ABG HCO3 26 H (21-25) mmol/L ABG Total CO2 26 H 27 H 27 H (19-24) mmol/L ABG O2 Saturation 99.7 H 99.6 H 99.7 H (94-97) % ABG Hematocrit 29 L 28 L 30 L (34.0-46.0) % ABG Potassium 5.6 H 5.6 H (3.4-4.5) mmol/L ABG Ionized Calcium 4.3 L 4.3 L 4.4 L (4.5-5.3) mg/dL ABG Glucose 127 H 221 H 217 H (75-99) mg/dL Hemoglobin 9.6 L 9.2 L 9.8 L (13.0-17.5) gm/dL Chloride (98-107) mmol/L Carbon Dioxide (22-30) mmol/L Glucose (74-99) mg/dL POC Glucose (mg/dL) (75-99) mg/dL Calcium (8.4-10.2) mg/dL Magnesium (1.6-2.3) mg/dL Alkaline Phosphatase (38-126) U/L Total Protein (6.3-8.2) g/dL Albumin (3.5-5.0) g/dL Arterial Blood Potassium 5.6 H 5.6 H (3.4-4.5) mmol/L Arterial Blood Glucose 127 H 221 H 217 H (75-99) mg/dL Crossmatch 05/11/18 05/11/18 05/11/18 Range/Units 14:07 16:00 16:00 RBC 3.67 L (4.30-5.90) m/uL Hgb 10.4 L (13.0-17.5) gm/dL Hct 31.6 L (39.0-53.0) % Plt Count 138 L (150-450) k/uL Lymphocytes # (1.0-4.8) k/uL APTT (22.0-30.0) sec ABG pH 7.33 L (7.35-7.45) ABG pCO2 47 H (35-45) mmHg ABG pO2 54 L* (83-108) mmHg ABG HCO3 (21-25) mmol/L ABG Total CO2 26 H (19-24) mmol/L ABG O2 Saturation 85.9 L (94-97) % ABG Hematocrit 28 L (34.0-46.0) % ABG Potassium 4.8 H (3.4-4.5) mmol/L ABG Ionized Calcium (4.5-5.3) mg/dL ABG Glucose 176 H (75-99) mg/dL Hemoglobin 9.0 L (13.0-17.5) gm/dL Chloride 109 H (98-107) mmol/L Carbon Dioxide (22-30) mmol/L Glucose 118 H (74-99) mg/dL POC Glucose (mg/dL) (75-99) mg/dL Calcium 8.2 L (8.4-10.2) mg/dL Magnesium 2.5 H (1.6-2.3) mg/dL Alkaline Phosphatase 26 L (38-126) U/L Total Protein 5.1 L (6.3-8.2) g/dL Albumin 2.9 L (3.5-5.0) g/dL Arterial Blood Potassium 4.8 H (3.4-4.5) mmol/L Arterial Blood Glucose 176 H (75-99) mg/dL Crossmatch 05/11/18 05/11/18 05/11/18 Range/Units 16:08 16:28 17:40 RBC (4.30-5.90) m/uL Hgb (13.0-17.5) gm/dL Hct (39.0-53.0) % Plt Count (150-450) k/uL Lymphocytes # (1.0-4.8) k/uL APTT (22.0-30.0) sec ABG pH (7.35-7.45) ABG pCO2 (35-45) mmHg ABG pO2 (83-108) mmHg ABG HCO3 (21-25) mmol/L ABG Total CO2 27 H (19-24) mmol/L ABG O2 Saturation 98.5 H (94-97) % ABG Hematocrit (34.0-46.0) % ABG Potassium (3.4-4.5) mmol/L ABG Ionized Calcium (4.5-5.3) mg/dL ABG Glucose (75-99) mg/dL Hemoglobin (13.0-17.5) gm/dL Chloride (98-107) mmol/L Carbon Dioxide (22-30) mmol/L Glucose (74-99) mg/dL POC Glucose (mg/dL) 127 H 128 H (75-99) mg/dL Calcium (8.4-10.2) mg/dL Magnesium (1.6-2.3) mg/dL Alkaline Phosphatase (38-126) U/L Total Protein (6.3-8.2) g/dL Albumin (3.5-5.0) g/dL Arterial Blood Potassium (3.4-4.5) mmol/L Arterial Blood Glucose (75-99) mg/dL Crossmatch 05/11/18 05/11/18 05/11/18 Range/Units 17:53 18:39 18:50 RBC (4.30-5.90) m/uL Hgb (13.0-17.5) gm/dL Hct (39.0-53.0) % Plt Count (150-450) k/uL Lymphocytes # (1.0-4.8) k/uL APTT (22.0-30.0) sec ABG pH 7.28 L (7.35-7.45) ABG pCO2 50 H (35-45) mmHg ABG pO2 55 L* (83-108) mmHg ABG HCO3 (21-25) mmol/L ABG Total CO2 25 H (19-24) mmol/L ABG O2 Saturation 85.0 L (94-97) % ABG Hematocrit (34.0-46.0) % ABG Potassium (3.4-4.5) mmol/L ABG Ionized Calcium (4.5-5.3) mg/dL ABG Glucose (75-99) mg/dL Hemoglobin (13.0-17.5) gm/dL Chloride (98-107) mmol/L Carbon Dioxide 20 L (22-30) mmol/L Glucose 186 H (74-99) mg/dL POC Glucose (mg/dL) 179 H (75-99) mg/dL Calcium 8.2 L (8.4-10.2) mg/dL Magnesium (1.6-2.3) mg/dL Alkaline Phosphatase (38-126) U/L Total Protein (6.3-8.2) g/dL Albumin (3.5-5.0) g/dL Arterial Blood Potassium (3.4-4.5) mmol/L Arterial Blood Glucose (75-99) mg/dL Crossmatch 05/11/18 05/11/18 05/11/18 Range/Units 18:50 20:09 21:04 RBC 4.10 L (4.30-5.90) m/uL Hgb 12.1 L (13.0-17.5) gm/dL Hct 35.7 L (39.0-53.0) % Plt Count (150-450) k/uL Lymphocytes # (1.0-4.8) k/uL APTT (22.0-30.0) sec ABG pH (7.35-7.45) ABG pCO2 (35-45) mmHg ABG pO2 (83-108) mmHg ABG HCO3 (21-25) mmol/L ABG Total CO2 (19-24) mmol/L ABG O2 Saturation (94-97) % ABG Hematocrit (34.0-46.0) % ABG Potassium (3.4-4.5) mmol/L ABG Ionized Calcium (4.5-5.3) mg/dL ABG Glucose (75-99) mg/dL Hemoglobin (13.0-17.5) gm/dL Chloride (98-107) mmol/L Carbon Dioxide (22-30) mmol/L Glucose (74-99) mg/dL POC Glucose (mg/dL) 187 H 166 H (75-99) mg/dL Calcium (8.4-10.2) mg/dL Magnesium (1.6-2.3) mg/dL Alkaline Phosphatase (38-126) U/L Total Protein (6.3-8.2) g/dL Albumin (3.5-5.0) g/dL Arterial Blood Potassium (3.4-4.5) mmol/L Arterial Blood Glucose (75-99) mg/dL Crossmatch 05/11/18 05/11/18 05/11/18 Range/Units 21:08 22:19 22:30 RBC 4.01 L (4.30-5.90) m/uL Hgb 11.4 L (13.0-17.5) gm/dL Hct 34.6 L (39.0-53.0) % Plt Count (150-450) k/uL Lymphocytes # 0.5 L (1.0-4.8) k/uL APTT (22.0-30.0) sec ABG pH 7.34 L (7.35-7.45) ABG pCO2 (35-45) mmHg ABG pO2 79 L (83-108) mmHg ABG HCO3 (21-25) mmol/L ABG Total CO2 25 H (19-24) mmol/L ABG O2 Saturation (94-97) % ABG Hematocrit (34.0-46.0) % ABG Potassium (3.4-4.5) mmol/L ABG Ionized Calcium (4.5-5.3) mg/dL ABG Glucose (75-99) mg/dL Hemoglobin (13.0-17.5) gm/dL Chloride (98-107) mmol/L Carbon Dioxide (22-30) mmol/L Glucose (74-99) mg/dL POC Glucose (mg/dL) 171 H (75-99) mg/dL Calcium (8.4-10.2) mg/dL Magnesium (1.6-2.3) mg/dL Alkaline Phosphatase (38-126) U/L Total Protein (6.3-8.2) g/dL Albumin (3.5-5.0) g/dL Arterial Blood Potassium (3.4-4.5) mmol/L Arterial Blood Glucose (75-99) mg/dL Crossmatch 05/11/18 05/12/18 05/12/18 Range/Units 23:09 00:13 01:06 RBC (4.30-5.90) m/uL Hgb (13.0-17.5) gm/dL Hct (39.0-53.0) % Plt Count (150-450) k/uL Lymphocytes # (1.0-4.8) k/uL APTT (22.0-30.0) sec ABG pH (7.35-7.45) ABG pCO2 (35-45) mmHg ABG pO2 (83-108) mmHg ABG HCO3 (21-25) mmol/L ABG Total CO2 (19-24) mmol/L ABG O2 Saturation (94-97) % ABG Hematocrit (34.0-46.0) % ABG Potassium (3.4-4.5) mmol/L ABG Ionized Calcium (4.5-5.3) mg/dL ABG Glucose (75-99) mg/dL Hemoglobin (13.0-17.5) gm/dL Chloride (98-107) mmol/L Carbon Dioxide (22-30) mmol/L Glucose (74-99) mg/dL POC Glucose (mg/dL) 165 H 166 H 163 H (75-99) mg/dL Calcium (8.4-10.2) mg/dL Magnesium (1.6-2.3) mg/dL Alkaline Phosphatase (38-126) U/L Total Protein (6.3-8.2) g/dL Albumin (3.5-5.0) g/dL Arterial Blood Potassium (3.4-4.5) mmol/L Arterial Blood Glucose (75-99) mg/dL Crossmatch 05/12/18 05/12/18 05/12/18 Range/Units 02:04 02:56 04:05 RBC (4.30-5.90) m/uL Hgb (13.0-17.5) gm/dL Hct (39.0-53.0) % Plt Count (150-450) k/uL Lymphocytes # (1.0-4.8) k/uL APTT (22.0-30.0) sec ABG pH (7.35-7.45) ABG pCO2 (35-45) mmHg ABG pO2 (83-108) mmHg ABG HCO3 (21-25) mmol/L ABG Total CO2 (19-24) mmol/L ABG O2 Saturation (94-97) % ABG Hematocrit (34.0-46.0) % ABG Potassium (3.4-4.5) mmol/L ABG Ionized Calcium (4.5-5.3) mg/dL ABG Glucose (75-99) mg/dL Hemoglobin (13.0-17.5) gm/dL Chloride (98-107) mmol/L Carbon Dioxide (22-30) mmol/L Glucose (74-99) mg/dL POC Glucose (mg/dL) 159 H 157 H 154 H (75-99) mg/dL Calcium (8.4-10.2) mg/dL Magnesium (1.6-2.3) mg/dL Alkaline Phosphatase (38-126) U/L Total Protein (6.3-8.2) g/dL Albumin (3.5-5.0) g/dL Arterial Blood Potassium (3.4-4.5) mmol/L Arterial Blood Glucose (75-99) mg/dL Crossmatch 05/12/18 05/12/18 05/12/18 Range/Units 05:15 05:15 05:15 RBC 3.96 L (4.30-5.90) m/uL Hgb 11.3 L (13.0-17.5) gm/dL Hct 34.4 L (39.0-53.0) % Plt Count (150-450) k/uL Lymphocytes # 0.7 L (1.0-4.8) k/uL APTT 19.7 L (22.0-30.0) sec ABG pH (7.35-7.45) ABG pCO2 (35-45) mmHg ABG pO2 (83-108) mmHg ABG HCO3 (21-25) mmol/L ABG Total CO2 (19-24) mmol/L ABG O2 Saturation (94-97) % ABG Hematocrit (34.0-46.0) % ABG Potassium (3.4-4.5) mmol/L ABG Ionized Calcium (4.5-5.3) mg/dL ABG Glucose (75-99) mg/dL Hemoglobin (13.0-17.5) gm/dL Chloride (98-107) mmol/L Carbon Dioxide (22-30) mmol/L Glucose 156 H (74-99) mg/dL POC Glucose (mg/dL) (75-99) mg/dL Calcium (8.4-10.2) mg/dL Magnesium (1.6-2.3) mg/dL Alkaline Phosphatase (38-126) U/L Total Protein 6.0 L (6.3-8.2) g/dL Albumin (3.5-5.0) g/dL Arterial Blood Potassium (3.4-4.5) mmol/L Arterial Blood Glucose (75-99) mg/dL Crossmatch 05/12/18 05/12/18 05/12/18 Range/Units 05:15 06:06 07:05 RBC (4.30-5.90) m/uL Hgb (13.0-17.5) gm/dL Hct (39.0-53.0) % Plt Count (150-450) k/uL Lymphocytes # (1.0-4.8) k/uL APTT (22.0-30.0) sec ABG pH (7.35-7.45) ABG pCO2 (35-45) mmHg ABG pO2 (83-108) mmHg ABG HCO3 (21-25) mmol/L ABG Total CO2 (19-24) mmol/L ABG O2 Saturation (94-97) % ABG Hematocrit (34.0-46.0) % ABG Potassium (3.4-4.5) mmol/L ABG Ionized Calcium (4.5-5.3) mg/dL ABG Glucose (75-99) mg/dL Hemoglobin (13.0-17.5) gm/dL Chloride (98-107) mmol/L Carbon Dioxide (22-30) mmol/L Glucose (74-99) mg/dL POC Glucose (mg/dL) 156 H 160 H 156 H (75-99) mg/dL Calcium (8.4-10.2) mg/dL Magnesium (1.6-2.3) mg/dL Alkaline Phosphatase (38-126) U/L Total Protein (6.3-8.2) g/dL Albumin (3.5-5.0) g/dL Arterial Blood Potassium (3.4-4.5) mmol/L Arterial Blood Glucose (75-99) mg/dL Crossmatch 05/12/18 05/12/18 Range/Units 07:28 08:07 RBC (4.30-5.90) m/uL Hgb (13.0-17.5) gm/dL Hct (39.0-53.0) % Plt Count (150-450) k/uL Lymphocytes # (1.0-4.8) k/uL APTT (22.0-30.0) sec ABG pH (7.35-7.45) ABG pCO2 (35-45) mmHg ABG pO2 (83-108) mmHg ABG HCO3 26 H (21-25) mmol/L ABG Total CO2 27 H (19-24) mmol/L ABG O2 Saturation 98.4 H (94-97) % ABG Hematocrit (34.0-46.0) % ABG Potassium (3.4-4.5) mmol/L ABG Ionized Calcium (4.5-5.3) mg/dL ABG Glucose (75-99) mg/dL Hemoglobin (13.0-17.5) gm/dL Chloride (98-107) mmol/L Carbon Dioxide (22-30) mmol/L Glucose (74-99) mg/dL POC Glucose (mg/dL) 159 H (75-99) mg/dL Calcium (8.4-10.2) mg/dL Magnesium (1.6-2.3) mg/dL Alkaline Phosphatase (38-126) U/L Total Protein (6.3-8.2) g/dL Albumin (3.5-5.0) g/dL Arterial Blood Potassium (3.4-4.5) mmol/L Arterial Blood Glucose (75-99) mg/dL Crossmatch Microbiology - Last 24 Hours (Table) 05/10/18 15:15 Urine Culture - Final Urine,Clean Catch - Imaging and Cardiology Chest x-ray: image reviewed Assessment and Plan (1) Coronary artery disease Current Visit: Yes Status: Chronic Code(s): I25.10 - ATHSCL HEART DISEASE OF [place] CORONARY ARTERY W/O ANG PCTRS SNOMED Code(s): 39907262 (2) Left main coronary artery disease Current Visit: Yes Status: Chronic Code(s): I25.10 - ATHSCL HEART DISEASE OF [place] CORONARY ARTERY W/O ANG PCTRS SNOMED Code(s): 554443630 (3) Hypertension Current Visit: Yes Status: Chronic Code(s): I10 - ESSENTIAL (PRIMARY) HYPERTENSION SNOMED Code(s): 11073233 (4) Hyperlipidemia Current Visit: Yes Status: Chronic Code(s): E78.5 - HYPERLIPIDEMIA, UNSPECIFIED SNOMED Code(s): 77844629 (5) Diabetes mellitus Current Visit: Yes Status: Chronic Code(s): E11.9 - TYPE 2 DIABETES MELLITUS WITHOUT COMPLICATIONS SNOMED Code(s): 31247372 (6) Single kidney Current Visit: Yes Status: Chronic Code(s): Z90.5 - ACQUIRED ABSENCE OF KIDNEY SNOMED Code(s): 957364996 (7) Family history of premature coronary artery disease Current Visit: Yes Status: Chronic Code(s): Z82.49 - FAMILY HX OF ISCHEM HEART DIS AND OTH DIS OF THE CIRC SYS SNOMED Code(s): 300766078 Plan: 1. Continue aspirin, statin, Plavix, beta katia therapy. Will increase beta katia therapy as tolerated. Discontinue IV nitro. 2. Ventilator management per pulmonology. Wean as tolerated. Will need aggressive pulmonary hygiene post extubation. 3. Increase activity once extubated. PT/OT/cardiac rehab following. 4. Will monitor daily labs and x-rays. Electrolyte replacement per protocol. 5. Insulin management per primary care service. 6. GI prophylaxis with Protonix, DVT prophylaxis with subcu heparin, SCDs. 7. Will discontinue [place] once extubated. Correct Cordis to continue CVP monitoring. 8. Pain control with current medication regimen. No Toradol. 9. Bronchodilators, steroids per pulmonology. 10. More recommendations to follow pending patient progresses. Time with Patient: Greater than 30
[2018-05-12] MEDS: ATORVASTATIN 40 MG TAB PO SCH (08:59)
[2018-05-12] MEDS: PANTOPRAZOLE 40 MG/10 ML VIAL IVP SCH (08:59)
[2018-05-12] MEDS: ASPIRIN 325 MG TAB PO SCH (08:59)
[2018-05-12] MEDS: CLOPIDOGREL 75 MG TAB PO SCH (08:59)
[2018-05-12] MEDS: MUPIROCIN 2% OINT 22 GM TUBE NASAL SCH ×2 (09:00→22:57)
[2018-05-12 09:11] LABS: Glucose,Whole Blood 152 mg/dL (75-99)
[2018-05-12] MEDS ORDERED: METOPROLOL TARTRATE 12.5 MG TAB PO SCH ×2 (09:15→15:00)
--- NOTE | 2018-05-12 09:17 | XR ---
EXAMINATION TYPE: XR chest 1V portable DATE OF EXAM: 05/12/2018 COMPARISON: Prior chest x-ray 05/11/2018 HISTORY: Postop, intubated TECHNIQUE: Single frontal view of the chest is obtained. FINDINGS: Endotracheal tube and NG tube, right jugular central venous sheath and coaxial [place] catheter are again present, distal tip of the [place] catheter lies over the pulmonary outflow trac t and has been repositioned in the interval. Endotracheal tube is overlying appropriate position, NG tube distal tip is not included on exam. Bilateral chest tubes are in place, there are overlying card iac leads. No evident pneumothorax. Patchy bibasilar density is present. Patient is rotated. There is some improvement in lung volume. Retrocardiac density persists obscuring the left hemidiaphragm. Ate lectatic changes are again seen bilaterally. Interstitium is stable. Heart size is stable accounting for differences in technique. IMPRESSION: Improvement in lung volumes, there is residual atelectasis, possible degree of mild volu me overload, probable small basilar effusion and atelectasis versus edema, follow-up recommended.
[2018-05-12] MEDS: INSULIN REGULAR 100 UNIT in SODIUM CHLORIDE 0.9% 100 ML IV SCH (10:08)
[2018-05-12 10:09] LABS: Glucose,Whole Blood 148 mg/dL (75-99)
[2018-05-12 11:08] LABS: Glucose,Whole Blood 145 mg/dL (75-99)
[2018-05-12] MEDS: LACTATED RINGERS 1,000 ML IV SCH (11:59)
[2018-05-12 12:05] LABS: Glucose,Whole Blood 137 mg/dL (75-99)
[2018-05-12] MEDS ORDERED: METOPROLOL TARTRATE 12.5 MG TAB PO STA (12:19)
[2018-05-12 13:08] LABS: Glucose,Whole Blood 127 mg/dL (75-99)
[2018-05-12 13:50] LABS: ABG Base Excess 1.4 mmol/L; ABG HCO3 26 mmol/L (21-25); ABG Oxygen Saturation 98.9 % (94-97); ABG PCO2 40 mmHg (35-45); ABG PH 7.42 (7.35-7.45); ABG PO2 101 mmHg (83-108); ABG TCO2 27 mmol/L (19-24)
[2018-05-12 14:10] LABS: Glucose,Whole Blood 124 mg/dL (75-99)
--- NOTE | 2018-05-12 14:12 | P.PN ---
Subjective Progress Note Date: 05/12/18 This is a 63-year-old male one of Dr. 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, hyperlipidemia, diabetes mellitus type 2, GERD status post Sacha fundoplication, and history of premature coronary artery disease patient has been having significant effort to dyspnea with chest discomfort especially in the cold weather initially was getting better with rest and eventually did not get better after arrest he ended up seeing his primary care physician sent him for a dobutamine stress echo Dayco portion was normal however the patient the EKG portion was abnormal ended up seeing cardiology underwent left heart catheterization that showed a distal left main disease 70% as well as triple-vessel disease including the left anterior descending coronary artery with 70% left circumflex 99% and RCA 80%, he was seen in consultation by Pavel neal surgery scheduled to go for open heart surgery tomorrow morning. 05/12: On May 11, patient underwent urgent quadruple coronary artery bypass grafting using the left internal mammary artery to the diagonal artery, then to the left anterior descending artery, reverse saphenous vein graft from the aorta to the posterior descending artery, reverse saphenous vein graft from the aorta to the high obtuse marginal artery. Patient remains intubated and on mechanical ventilation with tidal volume 450, FiO2 50 and PEEP of 16. Plan is to possibly wean this afternoon. Hannon catheter is in place with good urine output. In swollen drip is in place and blood sugars are running between 121 - 148. Chest tubes, right sided Cordis in place. Review of Systems -unable to assess as patient is intubated and on mechanical ventilation Objective - Vital Signs Vital signs: Vital Signs Temp 98.3 F 05/11/18 04:00 Pulse 61 05/11/18 04:00 Resp 18 05/11/18 04:00 BP 157/74 05/11/18 04:00 Pulse Ox 94 L 05/11/18 04:00 Intake & Output 05/10/18 05/11/18 05/11/18 18:59 06:59 18:59 Intake Total 1088.36 381.64 33 Output Total 2450 775 Balance -1361.64 -393.36 33 Weight 107.3 kg Intake: IV 240 140 33 0.9 carrier 140 Sodium Chloride 0.9% 1, 240 000 ml @ 100 mls/hr IV . Q10H [facility] Rx#:[id number] Intake, IV Titration 8.36 241.64 Amount Heparin Sod,Pork in 0.45% 8.36 241.64 NaCl 25,000 unit In 0.45 % NaCl 1 250ml.bag @ 15. 586 UNITS/KG/HR 16.72 mls /hr IV .[id number] [facility] Rx#: [id number] Oral 840 Output: Urine 2450 775 Other: Voiding Method Toilet Toilet Urinal # Voids 1 - Exam General appearance: average body habitus, no acute distress, patient is intubated and appears comfortable. - EENT Eyes: anicteric sclerae, EOMI, PERRLA, no ptosis, no scleral icterus, normal appearance ENT: hearing grossly normal, NA/AT, normal oropharynx Ears: bilateral: normal - Neck Neck: no lymphadenopathy, normal ROM, no rigidity, no stridor, no thyromegaly, right-sided Cordis Carotids: bilateral: upstroke normal Thyroid: bilateral: normal size - Respiratory Respiratory: bilateral: diminished, negative: dullness, rales, rhonchi, wheezing , prolonged expiration, prolonged inspiration, chest tubes in place - Cardiovascular Rhythm: regular Heart sounds: normal: S1, S2 Abnormal Heart Sounds: no systolic murmur, no S3 Gallop, no S4 Gallop - Gastrointestinal General gastrointestinal: normal bowel sounds, soft, no splenomegaly, no tenderness, no umbilical hernia Hannon catheter in place draining clear marjorie urine - Integumentary Integumentary: normal, normal turgor - Neurologic Neurologic: CNII-XII intact - Musculoskeletal Musculoskeletal: strength equal bilaterally - Psychiatric Psychiatric: Intubated - Labs CBC & Chem 7: 05/12/18 05:15 05/12/18 05:15 Labs: Abnormal Lab Results - Last 24 Hours (Table) 05/10/18 05/10/18 05/10/18 Range/Units 04:58 20:08 20:46 Hgb (13.0-17.5) gm/dL Hct (39.0-53.0) % APTT 63.2 H (22.0-30.0) sec Glucose (74-99) mg/dL POC Glucose (mg/dL) 140 H (75-99) mg/dL Crossmatch See Detail 05/11/18 05/11/1818 Range/Units 04:22 04:22 04:22 Hgb 12.6 L (13.0-17.5) gm/dL Hct 38.8 L (39.0-53.0) % APTT 59.2 H (22.0-30.0) sec Glucose 138 H (74-99) mg/dL POC Glucose (mg/dL) (75-99) mg/dL Crossmatch Microbiology - Last 24 Hours (Table) 05/10/18 15:15 Urine Culture - Preliminary Urine,Clean Catch Assessment and Plan Plan: 1. Distal left main disease with triple-vessel coronary artery disease status post urgent quadruple coronary artery bypass grafting using the left internal mammary artery to the diagonal artery, then to the left anterior descending artery, reverse saphenous vein graft from the aorta to the posterior descending artery, reverse saphenous vein graft from the aorta to the high obtuse marginal artery. Continue plan per cardiothoracic surgery team. 2. Hypertension and hypertensive cardiovascular disease. Continue Lopressor 25 mg orally twice every day. 3. Hyperlipidemia. Continue Lipitor 40 mg orally once every day. 4. Diabetes mellitus type 2. Patient is currently on insulin drip which will be continued 5. DVT prophylaxis. Continue knee-high MEENA hose and SCDs. He is currently on heparin drip. 6. GI prophylaxis. Continue PPI. 7. Full code. Discharge plan: To be determined Impression and plan of care have been directed as dictated by the signing physician. Haydee Langston nurse practitioner acting as scribe for signing physician.
[2018-05-12] MEDS ORDERED: BISACODYL 10 MG SUPP RECTAL PRN (15:00)
[2018-05-12] MEDS ORDERED: MAGNESIUM HYDROXIDE 2,400 MG/10 ML CUP PO PRN (15:00)
[2018-05-12 15:05] LABS: Glucose,Whole Blood 122 mg/dL (75-99)
--- NOTE | 2018-05-12 15:16 | P.PN ---
Subjective Progress Note Date: 05/12/18 Principal diagnosis: Status post CABG postoperative day #1 This is a 63-year-old white male, known history of hypertension, dyslipidemia, type 2 diabetes, nonsmoker, nondrinker, strong family history of premature coronary artery disease, known history of GERD and previous Sacha's fundoplication. Patient had previous history of kidney donation to his sister. Over the last couple of months, the patient has been noticing some chest discomfort, and some dyspnea on minimal exertion, which he thought initially could be related to his GERD symptoms coming back. However his symptoms where becoming more frequently, and abating with rest. Patient eventually underwent a full cardiac workup including cardiac catheterization which showed significant left main disease approximately 80% proximal LAD stenosis of 70-80% and 99% stenosis of the proximal left circumflex and 80% stenosis in the midsegment. Mid RCA was 90% stenosed. Considering the findings, patient was referred to cardiac surgery, and he is scheduled to undergo surgery tomorrow. Patient denies any previous pulmonary history, never smoked, has been quite active until the last couple of months when he has been noticing worsening symptoms of dyspnea on exertion and chest discomfort. 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 And he is usually quite active in his job physically. Chest x-ray showed some linear scarring at the right base, unchanged compared to a chest x-ray in 2016. Spirometry showed mild to moderate restriction. Reevaluated today on 05/11/2018, patient just came back to the ICU from his myocardial revascularization. Patient is now on mechanical ventilation, ventilator settings are tidal volume of 550, IMV rate of 14, FiO2 of 100%, and PEEP of 10. ABG and chest x-ray are pending. His peak airway pressure is about 28, plateau pressure is 22. Patient's O2 saturation is 100% on those vent settings. Again x-ray and ABG are pending. Patient is hemodynamically stable, on mechanical ventilation, in no distress. Reevaluated today on 05/12/2018, patient is postoperative day #1. Shortly after I saw the patient yesterday, we noted that his oxygenation has been very poor and marginal. In spite of on the percent FiO2 and a PEEP of 10, his pO2 was very low and marginal. Hence we felt that the patient developed post CABG ARDS., And I have recommended lower tidal volumes, I have also recommended higher PEEP and now the PEEP today is at 16. I have Him on the percent through the night, and titrated FiO2 gradually presently today at 50%, and the PEEP at 16. ABG on those settings about an hour ago showed a pO2 of 101 pCO2 of 40 pH of 7.42. Hence I cut down the PEEP down to 14. And I kept him at 50% FiO2. Patient remains on a relatively low tidal volume of 450, his assist control rate is at 28, and his PEEP is at 14 at present. Chest x-ray is basically unremarkable. His baseline PFT showed some minimal restriction, and again this finding of post CABG ARDS is unexpected. But clearly that's what we are dealing with at present. Discussed his condition many times with different physicians on the case including the cardiac surgeon, and we felt that it would be best to support him at present and continue low tidal volume mode of mechanical ventilation. His peak airway pressure today is 35. His plateau pressure is 25. All labs were reviewed including his electrolytes and renal profile. CBC were all noted to be normal. Patient is hemodynamically stable, and he is on propofol presently at 50 mcg/kg per hour. Objective - Vital Signs Vital signs: Vital Signs Temp 98.4 F 05/12/18 06:00 Pulse 68 05/12/18 14:00 Resp 28 H 05/12/18 14:00 BP 123/67 05/12/18 14:00 Pulse Ox 97 05/12/18 14:00 Intake & Output 05/11/18 05/12/18 05/12/18 18:59 06:59 18:59 Intake Total 074.080 0535.908 1108.275 Output Total 2600 855 640 Balance -2419.301 1051.908 468.275 Weight 109.6 kg 109.6 kg Intake: IV 92 1018 382 CO/CI 310 110 LR 50 600 200 pressure bags 9 108 72 Intake, IV Titration 88.699 888.908 606.275 Amount ACETAMINOPHEN IV (For NPO 100 ) 1,000 mg In Empty Bag 1 bag @ 400 mls/hr IVPB Q6HR [facility] Rx#:[id number] Albumin Human 5% 250 ml 350 In Empty Bag 1 bag @ 250 mls/hr IVPB Q1HR PRN Rx#: [id number] Clevidipine Butyrate 25 51.249 mg In Empty Bag 1 bag @ 1 MG/HR 2 mls/hr IV .Q24H ONE Rx#:[id number] Clevidipine Butyrate 25 50.0 mg In Empty Bag 1 bag @ 1 MG/HR 2 mls/hr IV .Q24H [facility] Rx#:[id number] Dextrose 5% in Water 100 250 ml @ 618 mls/hr IV .Q10M PRN with Amiodarone 150 mg Rx#:[id number] Insulin Regular 100 unit 0.783 53.935 61.697 In Sodium Chloride 0.9% 100 ml @ Per Protocol IV .Q0M [facility] Rx#:[id number] Lactated Ringers 1,000 ml 120 @ 20 mls/hr IV .Q24H [facility] Rx#:[id number] Nitroglycerin-D5w Pmx 50 10.025 20.775 mg In Dextrose/Water 1 250ml.bag @ 5 MCG/MIN 1.5 mls/hr IV .Q24H [facility] Rx#: [id number] Propofol 1,000 mg In 27.891 303.724 153.803 Empty Bag 1 bag @ Titrate IV .Q0M [facility] Rx#: [id number] ceFAZolin 2,000 mg In 30 Sodium Chloride 0.9% 30 ml @ 999 mls/hr IVPB ONCE ONE Rx#:[id number] Oral 120 Output: Chest Tube Drainage 180 20 Chest Tube Mediastinal 110 20 Left pleural 30 0 Right Pleural 40 0 Drainage 0 Right Calf 0 Urine 400 675 620 Estimated Blood Loss 2200 Other: Voiding Method Indwelling Catheter Indwelling Catheter Indwelling Catheter ABP, PAP, CO, CI - Last Documented Arterial Blood Pressure 126/61 Pulmonary Artery Pressure 29/20 Cardiac Output 5.7 Cardiac Index 2.4 - Exam Physical Exam: 63-year-old white male intubated, on mechanical ventilation, sedated. On propofol, not requiring any rate the cages at this point. Head: Atraumatic, normocephalic, endotracheal tube, orogastric tube are intact. HEENT:[Neck is supple.] [No neck masses.] [No thyromegaly.] [No JVD.] Chest: [Symmetrical chest expansion, diminished breath sounds at the bases, no rhonchi and no wheezes. Chest tubes are intact.] Cardiac Exam: [Normal S1 and S2, no S3 gallop, no murmur. Positive pericardial rub.] Abdomen: [Obese, Soft, nontender, no megaly, no rebound, no guarding, normal bowel sounds.] Extremities: [No clubbing, no edema, no cyanosis. Both lower extremities are wrapped with Orion wraps.] Neurological Exam: Cannot be assessed. Patient is sedated on mechanical ventilation Psychiatric: Cannot be assessed. Skin: Surgical site is clean, no rashes. No evidence of erythema.. - Labs CBC & Chem 7: 05/12/18 05:15 05/12/18 05:15 Labs: Abnormal Lab Results - Last 24 Hours (Table) 05/10/18 05/11/18 05/11/18 Range/Units 04:58 09:38 11:37 RBC (4.30-5.90) m/uL Hgb (13.0-17.5) gm/dL Hct (39.0-53.0) % Plt Count (150-450) k/uL Lymphocytes # (1.0-4.8) k/uL APTT (22.0-30.0) sec ABG pH (7.35-7.45) ABG pCO2 (35-45) mmHg ABG pO2 286 H 272 H (83-108) mmHg ABG HCO3 26 H (21-25) mmol/L ABG Total CO2 28 H 27 H (19-24) mmol/L ABG O2 Saturation 99.7 H 99.7 H (94-97) % ABG Hematocrit (34.0-46.0) % ABG Potassium (3.4-4.5) mmol/L ABG Ionized Calcium (4.5-5.3) mg/dL ABG Glucose 125 H 136 H (75-99) mg/dL Hemoglobin 12.1 L 11.1 L (13.0-17.5) gm/dL Chloride (98-107) mmol/L Carbon Dioxide (22-30) mmol/L Glucose (74-99) mg/dL POC Glucose (mg/dL) (75-99) mg/dL Calcium (8.4-10.2) mg/dL Magnesium (1.6-2.3) mg/dL Alkaline Phosphatase (38-126) U/L Total Protein (6.3-8.2) g/dL Albumin (3.5-5.0) g/dL Arterial Blood Potassium (3.4-4.5) mmol/L Arterial Blood Glucose 125 H 136 H (75-99) mg/dL Crossmatch See Detail 05/11/18 05/11/18 05/11/18 Range/Units 11:59 12:39 13:11 RBC (4.30-5.90) m/uL Hgb (13.0-17.5) gm/dL Hct (39.0-53.0) % Plt Count (150-450) k/uL Lymphocytes # (1.0-4.8) k/uL APTT (22.0-30.0) sec ABG pH (7.35-7.45) ABG pCO2 46 H (35-45) mmHg ABG pO2 331 H 223 H 243 H (83-108) mmHg ABG HCO3 26 H (21-25) mmol/L ABG Total CO2 26 H 27 H 27 H (19-24) mmol/L ABG O2 Saturation 99.7 H 99.6 H 99.7 H (94-97) % ABG Hematocrit 29 L 28 L 30 L (34.0-46.0) % ABG Potassium 5.6 H 5.6 H (3.4-4.5) mmol/L ABG Ionized Calcium 4.3 L 4.3 L 4.4 L (4.5-5.3) mg/dL ABG Glucose 127 H 221 H 217 H (75-99) mg/dL Hemoglobin 9.6 L 9.2 L 9.8 L (13.0-17.5) gm/dL Chloride (98-107) mmol/L Carbon Dioxide (22-30) mmol/L Glucose (74-99) mg/dL POC Glucose (mg/dL) (75-99) mg/dL Calcium (8.4-10.2) mg/dL Magnesium (1.6-2.3) mg/dL Alkaline Phosphatase (38-126) U/L Total Protein (6.3-8.2) g/dL Albumin (3.5-5.0) g/dL Arterial Blood Potassium 5.6 H 5.6 H (3.4-4.5) mmol/L Arterial Blood Glucose 127 H 221 H 217 H (75-99) mg/dL Crossmatch 05/11/18 05/11/18 05/11/18 Range/Units 14:07 16:00 16:00 RBC 3.67 L (4.30-5.90) m/uL Hgb 10.4 L (13.0-17.5) gm/dL Hct 31.6 L (39.0-53.0) % Plt Count 138 L (150-450) k/uL Lymphocytes # (1.0-4.8) k/uL APTT (22.0-30.0) sec ABG pH 7.33 L (7.35-7.45) ABG pCO2 47 H (35-45) mmHg ABG pO2 54 L* (83-108) mmHg ABG HCO3 (21-25) mmol/L ABG Total CO2 26 H (19-24) mmol/L ABG O2 Saturation 85.9 L (94-97) % ABG Hematocrit 28 L (34.0-46.0) % ABG Potassium 4.8 H (3.4-4.5) mmol/L ABG Ionized Calcium (4.5-5.3) mg/dL ABG Glucose 176 H (75-99) mg/dL Hemoglobin 9.0 L (13.0-17.5) gm/dL Chloride 109 H (98-107) mmol/L Carbon Dioxide (22-30) mmol/L Glucose 118 H (74-99) mg/dL POC Glucose (mg/dL) (75-99) mg/dL Calcium 8.2 L (8.4-10.2) mg/dL Magnesium 2.5 H (1.6-2.3) mg/dL Alkaline Phosphatase 26 L (38-126) U/L Total Protein 5.1 L (6.3-8.2) g/dL Albumin 2.9 L (3.5-5.0) g/dL Arterial Blood Potassium 4.8 H (3.4-4.5) mmol/L Arterial Blood Glucose 176 H (75-99) mg/dL Crossmatch 05/11/18 05/11/18 05/11/18 Range/Units 16:08 16:28 17:40 RBC (4.30-5.90) m/uL Hgb (13.0-17.5) gm/dL Hct (39.0-53.0) % Plt Count (150-450) k/uL Lymphocytes # (1.0-4.8) k/uL APTT (22.0-30.0) sec ABG pH (7.35-7.45) ABG pCO2 (35-45) mmHg ABG pO2 (83-108) mmHg ABG HCO3 (21-25) mmol/L ABG Total CO2 27 H (19-24) mmol/L ABG O2 Saturation 98.5 H (94-97) % ABG Hematocrit (34.0-46.0) % ABG Potassium (3.4-4.5) mmol/L ABG Ionized Calcium (4.5-5.3) mg/dL ABG Glucose (75-99) mg/dL Hemoglobin (13.0-17.5) gm/dL Chloride (98-107) mmol/L Carbon Dioxide (22-30) mmol/L Glucose (74-99) mg/dL POC Glucose (mg/dL) 127 H 128 H (75-99) mg/dL Calcium (8.4-10.2) mg/dL Magnesium (1.6-2.3) mg/dL Alkaline Phosphatase (38-126) U/L Total Protein (6.3-8.2) g/dL Albumin (3.5-5.0) g/dL Arterial Blood Potassium (3.4-4.5) mmol/L Arterial Blood Glucose (75-99) mg/dL Crossmatch 05/11/18 05/11/18 05/11/18 Range/Units 17:53 18:39 18:50 RBC (4.30-5.90) m/uL Hgb (13.0-17.5) gm/dL Hct (39.0-53.0) % Plt Count (150-450) k/uL Lymphocytes # (1.0-4.8) k/uL APTT (22.0-30.0) sec ABG pH 7.28 L (7.35-7.45) ABG pCO2 50 H (35-45) mmHg ABG pO2 55 L* (83-108) mmHg ABG HCO3 (21-25) mmol/L ABG Total CO2 25 H (19-24) mmol/L ABG O2 Saturation 85.0 L (94-97) % ABG Hematocrit (34.0-46.0) % ABG Potassium (3.4-4.5) mmol/L ABG Ionized Calcium (4.5-5.3) mg/dL ABG Glucose (75-99) mg/dL Hemoglobin (13.0-17.5) gm/dL Chloride (98-107) mmol/L Carbon Dioxide 20 L (22-30) mmol/L Glucose 186 H (74-99) mg/dL POC Glucose (mg/dL) 179 H (75-99) mg/dL Calcium 8.2 L (8.4-10.2) mg/dL Magnesium (1.6-2.3) mg/dL Alkaline Phosphatase (38-126) U/L Total Protein (6.3-8.2) g/dL Albumin (3.5-5.0) g/dL Arterial Blood Potassium (3.4-4.5) mmol/L Arterial Blood Glucose (75-99) mg/dL Crossmatch 05/11/18 05/11/18 05/11/18 Range/Units 18:50 20:09 21:04 RBC 4.10 L (4.30-5.90) m/uL Hgb 12.1 L (13.0-17.5) gm/dL Hct 35.7 L (39.0-53.0) % Plt Count (150-450) k/uL Lymphocytes # (1.0-4.8) k/uL APTT (22.0-30.0) sec ABG pH (7.35-7.45) ABG pCO2 (35-45) mmHg ABG pO2 (83-108) mmHg ABG HCO3 (21-25) mmol/L ABG Total CO2 (19-24) mmol/L ABG O2 Saturation (94-97) % ABG Hematocrit (34.0-46.0) % ABG Potassium (3.4-4.5) mmol/L ABG Ionized Calcium (4.5-5.3) mg/dL ABG Glucose (75-99) mg/dL Hemoglobin (13.0-17.5) gm/dL Chloride (98-107) mmol/L Carbon Dioxide (22-30) mmol/L Glucose (74-99) mg/dL POC Glucose (mg/dL) 187 H 166 H (75-99) mg/dL Calcium (8.4-10.2) mg/dL Magnesium (1.6-2.3) mg/dL Alkaline Phosphatase (38-126) U/L Total Protein (6.3-8.2) g/dL Albumin (3.5-5.0) g/dL Arterial Blood Potassium (3.4-4.5) mmol/L Arterial Blood Glucose (75-99) mg/dL Crossmatch 05/11/18 05/11/18 05/11/18 Range/Units 21:08 22:19 22:30 RBC 4.01 L (4.30-5.90) m/uL Hgb 11.4 L (13.0-17.5) gm/dL Hct 34.6 L (39.0-53.0) % Plt Count (150-450) k/uL Lymphocytes # 0.5 L (1.0-4.8) k/uL APTT (22.0-30.0) sec ABG pH 7.34 L (7.35-7.45) ABG pCO2 (35-45) mmHg ABG pO2 79 L (83-108) mmHg ABG HCO3 (21-25) mmol/L ABG Total CO2 25 H (19-24) mmol/L ABG O2 Saturation (94-97) % ABG Hematocrit (34.0-46.0) % ABG Potassium (3.4-4.5) mmol/L ABG Ionized Calcium (4.5-5.3) mg/dL ABG Glucose (75-99) mg/dL Hemoglobin (13.0-17.5) gm/dL Chloride (98-107) mmol/L Carbon Dioxide (22-30) mmol/L Glucose (74-99) mg/dL POC Glucose (mg/dL) 171 H (75-99) mg/dL Calcium (8.4-10.2) mg/dL Magnesium (1.6-2.3) mg/dL Alkaline Phosphatase (38-126) U/L Total Protein (6.3-8.2) g/dL Albumin (3.5-5.0) g/dL Arterial Blood Potassium (3.4-4.5) mmol/L Arterial Blood Glucose (75-99) mg/dL Crossmatch 05/11/18 05/12/18 05/12/18 Range/Units 23:09 00:13 01:06 RBC (4.30-5.90) m/uL Hgb (13.0-17.5) gm/dL Hct (39.0-53.0) % Plt Count (150-450) k/uL Lymphocytes # (1.0-4.8) k/uL APTT (22.0-30.0) sec ABG pH (7.35-7.45) ABG pCO2 (35-45) mmHg ABG pO2 (83-108) mmHg ABG HCO3 (21-25) mmol/L ABG Total CO2 (19-24) mmol/L ABG O2 Saturation (94-97) % ABG Hematocrit (34.0-46.0) % ABG Potassium (3.4-4.5) mmol/L ABG Ionized Calcium (4.5-5.3) mg/dL ABG Glucose (75-99) mg/dL Hemoglobin (13.0-17.5) gm/dL Chloride (98-107) mmol/L Carbon Dioxide (22-30) mmol/L Glucose (74-99) mg/dL POC Glucose (mg/dL) 165 H 166 H 163 H (75-99) mg/dL Calcium (8.4-10.2) mg/dL Magnesium (1.6-2.3) mg/dL Alkaline Phosphatase (38-126) U/L Total Protein (6.3-8.2) g/dL Albumin (3.5-5.0) g/dL Arterial Blood Potassium (3.4-4.5) mmol/L Arterial Blood Glucose (75-99) mg/dL Crossmatch 05/12/18 05/12/18 05/12/18 Range/Units 02:04 02:56 04:05 RBC (4.30-5.90) m/uL Hgb (13.0-17.5) gm/dL Hct (39.0-53.0) % Plt Count (150-450) k/uL Lymphocytes # (1.0-4.8) k/uL APTT (22.0-30.0) sec ABG pH (7.35-7.45) ABG pCO2 (35-45) mmHg ABG pO2 (83-108) mmHg ABG HCO3 (21-25) mmol/L ABG Total CO2 (19-24) mmol/L ABG O2 Saturation (94-97) % ABG Hematocrit (34.0-46.0) % ABG Potassium (3.4-4.5) mmol/L ABG Ionized Calcium (4.5-5.3) mg/dL ABG Glucose (75-99) mg/dL Hemoglobin (13.0-17.5) gm/dL Chloride (98-107) mmol/L Carbon Dioxide (22-30) mmol/L Glucose (74-99) mg/dL POC Glucose (mg/dL) 159 H 157 H 154 H (75-99) mg/dL Calcium (8.4-10.2) mg/dL Magnesium (1.6-2.3) mg/dL Alkaline Phosphatase (38-126) U/L Total Protein (6.3-8.2) g/dL Albumin (3.5-5.0) g/dL Arterial Blood Potassium (3.4-4.5) mmol/L Arterial Blood Glucose (75-99) mg/dL Crossmatch 05/12/18 05/12/18 05/12/18 Range/Units 05:15 05:15 05:15 RBC 3.96 L (4.30-5.90) m/uL Hgb 11.3 L (13.0-17.5) gm/dL Hct 34.4 L (39.0-53.0) % Plt Count (150-450) k/uL Lymphocytes # 0.7 L (1.0-4.8) k/uL APTT 19.7 L (22.0-30.0) sec ABG pH (7.35-7.45) ABG pCO2 (35-45) mmHg ABG pO2 (83-108) mmHg ABG HCO3 (21-25) mmol/L ABG Total CO2 (19-24) mmol/L ABG O2 Saturation (94-97) % ABG Hematocrit (34.0-46.0) % ABG Potassium (3.4-4.5) mmol/L ABG Ionized Calcium (4.5-5.3) mg/dL ABG Glucose (75-99) mg/dL Hemoglobin (13.0-17.5) gm/dL Chloride (98-107) mmol/L Carbon Dioxide (22-30) mmol/L Glucose 156 H (74-99) mg/dL POC Glucose (mg/dL) (75-99) mg/dL Calcium (8.4-10.2) mg/dL Magnesium (1.6-2.3) mg/dL Alkaline Phosphatase (38-126) U/L Total Protein 6.0 L (6.3-8.2) g/dL Albumin (3.5-5.0) g/dL Arterial Blood Potassium (3.4-4.5) mmol/L Arterial Blood Glucose (75-99) mg/dL Crossmatch 05/12/18 05/12/18 05/12/18 Range/Units 05:15 06:06 07:05 RBC (4.30-5.90) m/uL Hgb (13.0-17.5) gm/dL Hct (39.0-53.0) % Plt Count (150-450) k/uL Lymphocytes # (1.0-4.8) k/uL APTT (22.0-30.0) sec ABG pH (7.35-7.45) ABG pCO2 (35-45) mmHg ABG pO2 (83-108) mmHg ABG HCO3 (21-25) mmol/L ABG Total CO2 (19-24) mmol/L ABG O2 Saturation (94-97) % ABG Hematocrit (34.0-46.0) % ABG Potassium (3.4-4.5) mmol/L ABG Ionized Calcium (4.5-5.3) mg/dL ABG Glucose (75-99) mg/dL Hemoglobin (13.0-17.5) gm/dL Chloride (98-107) mmol/L Carbon Dioxide (22-30) mmol/L Glucose (74-99) mg/dL POC Glucose (mg/dL) 156 H 160 H 156 H (75-99) mg/dL Calcium (8.4-10.2) mg/dL Magnesium (1.6-2.3) mg/dL Alkaline Phosphatase (38-126) U/L Total Protein (6.3-8.2) g/dL Albumin (3.5-5.0) g/dL Arterial Blood Potassium (3.4-4.5) mmol/L Arterial Blood Glucose (75-99) mg/dL Crossmatch 05/12/18 05/12/18 05/12/18 Range/Units 07:28 08:07 09:09 RBC (4.30-5.90) m/uL Hgb (13.0-17.5) gm/dL Hct (39.0-53.0) % Plt Count (150-450) k/uL Lymphocytes # (1.0-4.8) k/uL APTT (22.0-30.0) sec ABG pH (7.35-7.45) ABG pCO2 (35-45) mmHg ABG pO2 (83-108) mmHg ABG HCO3 26 H (21-25) mmol/L ABG Total CO2 27 H (19-24) mmol/L ABG O2 Saturation 98.4 H (94-97) % ABG Hematocrit (34.0-46.0) % ABG Potassium (3.4-4.5) mmol/L ABG Ionized Calcium (4.5-5.3) mg/dL ABG Glucose (75-99) mg/dL Hemoglobin (13.0-17.5) gm/dL Chloride (98-107) mmol/L Carbon Dioxide (22-30) mmol/L Glucose (74-99) mg/dL POC Glucose (mg/dL) 159 H 152 H (75-99) mg/dL Calcium (8.4-10.2) mg/dL Magnesium (1.6-2.3) mg/dL Alkaline Phosphatase (38-126) U/L Total Protein (6.3-8.2) g/dL Albumin (3.5-5.0) g/dL Arterial Blood Potassium (3.4-4.5) mmol/L Arterial Blood Glucose (75-99) mg/dL Crossmatch 05/12/18 05/12/18 05/12/18 Range/Units 10:07 11:06 12:04 RBC (4.30-5.90) m/uL Hgb (13.0-17.5) gm/dL Hct (39.0-53.0) % Plt Count (150-450) k/uL Lymphocytes # (1.0-4.8) k/uL APTT (22.0-30.0) sec ABG pH (7.35-7.45) ABG pCO2 (35-45) mmHg ABG pO2 (83-108) mmHg ABG HCO3 (21-25) mmol/L ABG Total CO2 (19-24) mmol/L ABG O2 Saturation (94-97) % ABG Hematocrit (34.0-46.0) % ABG Potassium (3.4-4.5) mmol/L ABG Ionized Calcium (4.5-5.3) mg/dL ABG Glucose (75-99) mg/dL Hemoglobin (13.0-17.5) gm/dL Chloride (98-107) mmol/L Carbon Dioxide (22-30) mmol/L Glucose (74-99) mg/dL POC Glucose (mg/dL) 148 H 145 H 137 H (75-99) mg/dL Calcium (8.4-10.2) mg/dL Magnesium (1.6-2.3) mg/dL Alkaline Phosphatase (38-126) U/L Total Protein (6.3-8.2) g/dL Albumin (3.5-5.0) g/dL Arterial Blood Potassium (3.4-4.5) mmol/L Arterial Blood Glucose (75-99) mg/dL Crossmatch 05/12/18 05/12/18 05/12/18 Range/Units 13:06 13:43 14:08 RBC (4.30-5.90) m/uL Hgb (13.0-17.5) gm/dL Hct (39.0-53.0) % Plt Count (150-450) k/uL Lymphocytes # (1.0-4.8) k/uL APTT (22.0-30.0) sec ABG pH (7.35-7.45) ABG pCO2 (35-45) mmHg ABG pO2 (83-108) mmHg ABG HCO3 26 H (21-25) mmol/L ABG Total CO2 27 H (19-24) mmol/L ABG O2 Saturation 98.9 H (94-97) % ABG Hematocrit (34.0-46.0) % ABG Potassium (3.4-4.5) mmol/L ABG Ionized Calcium (4.5-5.3) mg/dL ABG Glucose (75-99) mg/dL Hemoglobin (13.0-17.5) gm/dL Chloride (98-107) mmol/L Carbon Dioxide (22-30) mmol/L Glucose (74-99) mg/dL POC Glucose (mg/dL) 127 H 124 H (75-99) mg/dL Calcium (8.4-10.2) mg/dL Magnesium (1.6-2.3) mg/dL Alkaline Phosphatase (38-126) U/L Total Protein (6.3-8.2) g/dL Albumin (3.5-5.0) g/dL Arterial Blood Potassium (3.4-4.5) mmol/L Arterial Blood Glucose (75-99) mg/dL Crossmatch 05/12/18 Range/Units 15:02 RBC (4.30-5.90) m/uL Hgb (13.0-17.5) gm/dL Hct (39.0-53.0) % Plt Count (150-450) k/uL Lymphocytes # (1.0-4.8) k/uL APTT (22.0-30.0) sec ABG pH (7.35-7.45) ABG pCO2 (35-45) mmHg ABG pO2 (83-108) mmHg ABG HCO3 (21-25) mmol/L ABG Total CO2 (19-24) mmol/L ABG O2 Saturation (94-97) % ABG Hematocrit (34.0-46.0) % ABG Potassium (3.4-4.5) mmol/L ABG Ionized Calcium (4.5-5.3) mg/dL ABG Glucose (75-99) mg/dL Hemoglobin (13.0-17.5) gm/dL Chloride (98-107) mmol/L Carbon Dioxide (22-30) mmol/L Glucose (74-99) mg/dL POC Glucose (mg/dL) 122 H (75-99) mg/dL Calcium (8.4-10.2) mg/dL Magnesium (1.6-2.3) mg/dL Alkaline Phosphatase (38-126) U/L Total Protein (6.3-8.2) g/dL Albumin (3.5-5.0) g/dL Arterial Blood Potassium (3.4-4.5) mmol/L Arterial Blood Glucose (75-99) mg/dL Crossmatch Microbiology - Last 24 Hours (Table) 05/10/18 15:15 Urine Culture - Final Urine,Clean Catch Assessment and Plan Assessment: Impression: 1 triple-vessel coronary artery disease, with left main coronary artery disease , patient is status post CABG, postoperative day #1. Patient is clearly not ready to be weaned or extubated based on his postoperative ARDS. 2 post CABG ARDS, postoperative hypoxic respiratory failure, unexpected quite severe initially, based on the [place] criteria. However over the last 20 hours , there has been some improvement. I was able to cut down the FiO2 from 100% to 50%, and I was also able to cut down the PEEP from 16-14 today. I will continue to cut down the PEEP as tolerated and will continue to monitor his O2 saturation may even repeat ABG later on this evening. 3 benign essential hypertension 4 type 2 diabetes 5 single kidney 6 family history of premature coronary artery disease. 7 postoperative hypoxic respiratory failure secondary to ARDS, unexpected and being addressed accordingly. Recommendation: Continue mechanical ventilation, continue tidal volume of 450, continue PEEP at 14, FiO2 at 50%, continue GI and DVT prophylaxis, start enteral feeding, discussed his condition with family members at bedside, and updated them on the situation, very well aware of his condition. Discussed his condition with different consultants and with the nurses taking care of the patient. Critical care time is 40 minutes. No plans to wean and extubate today for sure. Prognosis is definitely guarded. Time with Patient: Greater than 30
[2018-05-12 16:04] LABS: Glucose,Whole Blood 125 mg/dL (75-99)
[2018-05-12] MEDS: CLEVIDIPINE BUTYRATE 25 MG in EMPTY BAG 1 BAG IV SCH (16:26)
[2018-05-12 18:06] LABS: Glucose,Whole Blood 124 mg/dL (75-99)
[2018-05-12 20:33] LABS: Glucose,Whole Blood 124 mg/dL (75-99)
[2018-05-12] MEDS: METOPROLOL TARTRATE 25 MG TAB PO SCH (21:30)
[2018-05-12] MEDS: SENNOSIDES-DOCUSATE SODIUM 1 EACH TAB PO SCH (22:57)
[2018-05-12 23:02] LABS: Glucose,Whole Blood 131 mg/dL (75-99)
[2018-05-13] MEDS: MORPHINE SULFATE 2 MG/ML SYRINGE IVP PRN ×4 (00:49→12:57)
[2018-05-13] MEDS: HEPARIN SODIUM,PORCINE 5,000 UNIT/ML 1 ML VIAL SQ SCH ×4 (00:51→23:28)
[2018-05-13 00:57] LABS: Glucose,Whole Blood 142 mg/dL (75-99)
[2018-05-13] MEDS: methylPREDNISolone SOD SUCCI 125 MG/2 ML VIAL IV SCH ×5 (01:14→23:30)
[2018-05-13] MEDS: PROPOFOL 1,000 MG in EMPTY BAG 1 BAG IV SCH ×3 (01:19→04:39)
[2018-05-13 02:08] LABS: Glucose,Whole Blood 139 mg/dL (75-99)
[2018-05-13 04:14] LABS: Glucose,Whole Blood 135 mg/dL (75-99)
[2018-05-13] MEDS: hydrALAZINE HCL 20 MG/ML 1 ML VIAL IVP PRN (05:01)
[2018-05-13 05:31] LABS: Basophils % (A) 0 %; Eosinophils # (A) 0.1 k/uL (0-0.7); Eosinophils % (A) 1 %; HCT 29.4 % (39.0-53.0); Lymphocytes # (A) 0.7 k/uL (1.0-4.8); Lymphocytes % (A) 10 %; MCH 28.4 pg (25.0-35.0); Mean Platelet Volume 7.8; Monocytes # (A) 0.3 k/uL (0-1.0); Monocytes % (A) 5 %; Neutrophils # (A) 5.9 k/uL (1.3-7.7); Neutrophils % (A) 83 %; Platelet Count 155 k/uL (150-450); RBC 3.42 m/uL (4.30-5.90); RDW 14.2 % (11.5-15.5); WBC 7.1 k/uL (3.8-10.6)
[2018-05-13 05:33] LABS: Ionized Calcium 5.2 mg/dL (4.5-5.3)
[2018-05-13 05:39] LABS: HGB 9.7 gm/dL (13.0-17.5)
[2018-05-13] MEDS: CLEVIDIPINE BUTYRATE 25 MG in EMPTY BAG 1 BAG IV SCH ×4 (05:48→22:00)
[2018-05-13 05:50] LABS: ALT 29 U/L (21-72); AST 23 U/L (17-59); Albumin 3.2 g/dL (3.5-5.0); Alkaline Phosphatase 31 U/L (38-126); Anion Gap 6 mmol/L; Blood Urea Nitrogen 16 mg/dL (9-20); Calcium 8.7 mg/dL (8.4-10.2); Carbon Dioxide 25 mmol/L (22-30); Chloride 110 mmol/L (98-107); Glucose 124 mg/dL (74-99); Magnesium 2.8 mg/dL (1.6-2.3); Potassium 4.4 mmol/L (3.5-5.1); Sodium 141 mmol/L (137-145); Total Bilirubin 0.3 mg/dL (0.2-1.3); Total Protein 5.7 g/dL (6.3-8.2)
[2018-05-13 05:51] LABS: ABG Base Excess 1.6 mmol/L; ABG HCO3 26 mmol/L (21-25); ABG Oxygen Saturation 98.4 % (94-97); ABG PCO2 38 mmHg (35-45); ABG PH 7.44 (7.35-7.45); ABG PO2 97 mmHg (83-108); ABG TCO2 27 mmol/L (19-24)
[2018-05-13] MEDS: INSULIN REGULAR 100 UNIT in SODIUM CHLORIDE 0.9% 100 ML IV SCH ×2 (06:10→12:58)
[2018-05-13 06:28] LABS: Glucose,Whole Blood 170 mg/dL (75-99)
[2018-05-13] MEDS ORDERED: DEXMEDETOMIDINE/0.9% NACL(PMX) 400 MCG in EMPTY BAG 1 BAG IV SCH (07:00)
[2018-05-13] MEDS: LACTATED RINGERS 1,000 ML IV SCH (07:14)
[2018-05-13] MEDS: IPRATROPIUM-ALBUTEROL 3 ML NEB INHALATION SCH ×4 (07:40→19:15)
[2018-05-13 08:14] LABS: Glucose,Whole Blood 193 mg/dL (75-99)
[2018-05-13] MEDS: PANTOPRAZOLE 40 MG/10 ML VIAL IVP SCH (08:23)
[2018-05-13] MEDS: ATORVASTATIN 40 MG TAB PO SCH (08:23)
[2018-05-13] MEDS: CLOPIDOGREL 75 MG TAB PO SCH (08:23)
[2018-05-13] MEDS: METOPROLOL TARTRATE 25 MG TAB PO SCH (08:24)
[2018-05-13] MEDS: MUPIROCIN 2% OINT 22 GM TUBE NASAL SCH ×2 (08:25→21:14)
[2018-05-13] MEDS: ASPIRIN 325 MG TAB PO SCH (08:30)
--- NOTE | 2018-05-13 08:34 | PN ---
PROGRESS NOTE Mr. Kumar is status post aortocoronary bypass surgery. There has been some difficulty in weaning this gentleman. However, his PEEP which was up to 16 is down to 10. His chest x-ray looks a little bit better today. He is hemodynamically stable, in fact hypertensive requiring a Cleviprex drip. However, patient is alert response to commands when he is awake. His vital signs are stable S1-S2 heard normally. Lungs reveal diminished air entry over both bases with ventilator-assisted breath sounds are good. Abdomen is soft. Rest of physical examination is unchanged. Plan is to continue the weaning efforts and hopefully patient will be extubated later on today. We can wean off the Cleviprex once the blood pressure normalizes. His BP is already down. Urine output has been excellent. This patient has a single kidney and is a kidney donor. MMODL / IJN: [id number] /
--- NOTE | 2018-05-13 08:45 | XR ---
EXAMINATION TYPE: XR chest 1V portable DATE OF EXAM: 05/13/2018 COMPARISON: 05/12/2018 HISTORY: Postop TECHNIQUE: Single frontal view of the chest is obtained. FINDINGS: Endotracheal tube and NG tube, right jugular central venous sheath and coaxial [place] c atheter are again present, distal tip of the [place] catheter lies over the pulmonary outflow tract . Endotracheal tube is overlying appropriate position, NG tube distal tip is not included on exam. Bilateral chest tubes are in place, there are overlying cardiac leads. No evident pneumothorax. Patchy bibasilar subsegmental consolidation is present. Retrocardiac density persists obscuring the l eft hemidiaphragm. Atelectatic changes are again seen bilaterally. Interstitium is stable. Heart size is stable accounting for differences in technique. IMPRESSION: 1. Postsurgical change with bilateral areas of consolidation and pleural effusion appearing to be sta ble.
--- NOTE | 2018-05-13 09:41 | P.PN ---
Subjective Progress Note Date: 05/13/18 Principal diagnosis: Left main disease with severe triple vessel coronary artery disease, overall preserved left ventricular function. 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 POD #2 urgent quadruple coronary artery bypass grafting using the left internal mammary artery sequentially to the diagonal artery, then to the left anterior descending artery, reverse saphenous vein graft from the aorta to the posterior descending artery, reverse saphenous vein graft from the aorta to the high obtuse marginal artery. Endoscopic harvesting of the right greater saphenous vein. Intraoperative transesophageal echocardiogram and epi-aortic scanning. Intraoperative graft flow measurements using the [employer] [place] system. Postoperative prolonged mechanical ventilation, an unexpected outcome. The patient is currently lying in bed in no acute distress. Remains sedated on mechanical ventilation, ventilator has been weaned down to 50% FiO2 with 10 of PEEP. Patient does wake up and follow commands. Currently hemodynamically stable on no inotropes or pressors. Remains on Cleviprex for hypertension. No further hematuria. Objective - Vital Signs Vital signs: Vital Signs Temp 96.8 F L 05/13/18 04:00 Pulse 77 05/13/18 08:15 Resp 9 L 05/13/18 07:00 BP 148/73 05/13/18 07:00 Pulse Ox 97 05/13/18 07:00 Intake & Output 18 05/13/18 05/13/18 18:59 06:59 18:59 Intake Total 9038.331 6878.099 207.056 Output Total 1180 1865 70 Balance 326.237 -630.901 137.056 Weight 109.6 kg 109.6 kg Intake: IV 438 252 9 CO/CI 130 150 LR 200 pressure bags 108 102 9 Intake, IV Titration 948.237 682.099 178.056 Amount ACETAMINOPHEN IV (For NPO 100 ) 1,000 mg In Empty Bag 1 bag @ 400 mls/hr IVPB Q6HR [facility] Rx#:[id number] Clevidipine Butyrate 25 42.266 mg In Empty Bag 1 bag @ 1 MG/HR 2 mls/hr IV .Q24H [facility] Rx#:[id number] Dextrose 5% in Water 100 250 ml @ 618 mls/hr IV .Q10M PRN with Amiodarone 150 mg Rx#:[id number] Insulin Regular 100 unit 61.697 68.525 17.237 In Sodium Chloride 0.9% 100 ml @ Per Protocol IV .Q0M [facility] Rx#:[id number] Lactated Ringers 1,000 ml 240 420 50 @ 20 mls/hr IV .Q24H [facility] Rx#:[id number] Nitroglycerin-D5w Pmx 50 20.775 mg In Dextrose/Water 1 250ml.bag @ 5 MCG/MIN 1.5 mls/hr IV .Q24H [facility] Rx#: [id number] Propofol 1,000 mg In 275.765 193.574 68.553 Empty Bag 1 bag @ Titrate IV .Q0M [facility] Rx#: [id number] Oral 120 Tube Feeding 240 20 Other 60 Output: Chest Tube Drainage 70 70 10 Chest Tube Mediastinal 60 30 Left pleural 10 40 Right Pleural 0 0 10 Drainage 15 Right Calf 15 Urine 1095 1795 60 Other: Voiding Method Indwelling Catheter Indwelling Catheter ABP, PAP, CO, CI - Last Documented Arterial Blood Pressure 142/60 Pulmonary Artery Pressure 36/23 Cardiac Output 5 Cardiac Index 2.2 - Constitutional General appearance: Present: cooperative, no acute distress, obese - Respiratory Details: Lungs sounds diminished bilaterally. Respirations even, nonlabored. Remains on mechanical ventilation. Current ventilator settings assist control mode, FiO2 50%, tidal volume 450, respiratory rate 28, PEEP 10. ABGs this morning 7.44/38/97/26/98%/1.6 on 50% FiO2. 8.5 ET tube present, 24 at the lip. Mediastinal chest tube to continuous wall suction, 10 mL serosanguineous drainage overnight, 150 mL in the last 24 hours. Right pleural chest tube to continuous wall suction, no drainage in the last 24 hours. Left pleural chest tube to continuous wall suction, 30 mL serosanguineous drainage overnight, 50 mL in the last 24 hours. No air leaks present. - Cardiovascular Details: S1, S2 present. Regular rate and rhythm, sinus rhythm on telemetry. Sternum stable. A/V epicardial pacemaker wires present, connected to generator, VVI mode with backup rate 50 bpm. Palpable peripheral pulses bilaterally. No edema present. No calf pain or tenderness noted. Right internal jugular [place]/ Cordis, left radial arterial line present. Last CO/CI 5.0/2.2 on no inotropes or pressors. Heart hugger, antiembolism stockings, SCDs present. - Gastrointestinal Gastrointestinal Comment(s): Abdomen soft, nontender, nondistended. Hypoactive bowel sounds present 4 quadrants. OG tube present lower intermittent suction with minimal brown drainage. - Genitourinary Genitourinary Comment(s): Hannon present draining clear yellow urine. Output overnight 120-275 mL per hour , 1415 mL the last 8 hours. - Integumentary Integumentary Comment(s): Skin is warm and dry with evidence of good perfusion. Anterior chest incision well approximated and covered with dry intact dressing. Right lower extremity EVH site well approximated, MELVIN drain present with minimal drainage. - Neurologic Neurologic: Present: CNII-XII intact - Musculoskeletal Musculoskeletal: Present: strength equal bilaterally - Psychiatric Psychiatric Comment(s): Currently sedated with changeover from propofol to Precedex. Patient does wake up and follow all commands. - Allied health notes Allied health notes reviewed: nursing - Labs CBC & Chem 7: 05/13/18 05:10 05/13/18 05:10 Labs: Abnormal Lab Results - Last 24 Hours (Table) 05/12/18 05/12/18 05/12/18 Range/Units 09:09 10:07 11:06 RBC (4.30-5.90) m/uL Hgb (13.0-17.5) gm/dL Hct (39.0-53.0) % Lymphocytes # (1.0-4.8) k/uL ABG HCO3 (21-25) mmol/L ABG Total CO2 (19-24) mmol/L ABG O2 Saturation (94-97) % Chloride (98-107) mmol/L Glucose (74-99) mg/dL POC Glucose (mg/dL) 152 H 148 H 145 H (75-99) mg/dL Magnesium (1.6-2.3) mg/dL Alkaline Phosphatase (38-126) U/L Total Protein (6.3-8.2) g/dL Albumin (3.5-5.0) g/dL 05/12/18 05/12/18 05/12/18 Range/Units 12:04 13:06 13:43 RBC (4.30-5.90) m/uL Hgb (13.0-17.5) gm/dL Hct (39.0-53.0) % Lymphocytes # (1.0-4.8) k/uL ABG HCO3 26 H (21-25) mmol/L ABG Total CO2 27 H (19-24) mmol/L ABG O2 Saturation 98.9 H (94-97) % Chloride (98-107) mmol/L Glucose (74-99) mg/dL POC Glucose (mg/dL) 137 H 127 H (75-99) mg/dL Magnesium (1.6-2.3) mg/dL Alkaline Phosphatase (38-126) U/L Total Protein (6.3-8.2) g/dL Albumin (3.5-5.0) g/dL 05/12/18 05/12/18 05/12/18 Range/Units 14:08 15:02 16:02 RBC (4.30-5.90) m/uL Hgb (13.0-17.5) gm/dL Hct (39.0-53.0) % Lymphocytes # (1.0-4.8) k/uL ABG HCO3 (21-25) mmol/L ABG Total CO2 (19-24) mmol/L ABG O2 Saturation (94-97) % Chloride (98-107) mmol/L Glucose (74-99) mg/dL POC Glucose (mg/dL) 124 H 122 H 125 H (75-99) mg/dL Magnesium (1.6-2.3) mg/dL Alkaline Phosphatase (38-126) U/L Total Protein (6.3-8.2) g/dL Albumin (3.5-5.0) g/dL 05/12/18 05/12/18 05/12/18 Range/Units 18:03 20:13 23:00 RBC (4.30-5.90) m/uL Hgb (13.0-17.5) gm/dL Hct (39.0-53.0) % Lymphocytes # (1.0-4.8) k/uL ABG HCO3 (21-25) mmol/L ABG Total CO2 (19-24) mmol/L ABG O2 Saturation (94-97) % Chloride (98-107) mmol/L Glucose (74-99) mg/dL POC Glucose (mg/dL) 124 H 124 H 131 H (75-99) mg/dL Magnesium (1.6-2.3) mg/dL Alkaline Phosphatase (38-126) U/L Total Protein (6.3-8.2) g/dL Albumin (3.5-5.0) g/dL 05/13/18 05/13/18 05/13/18 Range/Units 00:55 02:04 04:10 RBC (4.30-5.90) m/uL Hgb (13.0-17.5) gm/dL Hct (39.0-53.0) % Lymphocytes # (1.0-4.8) k/uL ABG HCO3 (21-25) mmol/L ABG Total CO2 (19-24) mmol/L ABG O2 Saturation (94-97) % Chloride (98-107) mmol/L Glucose (74-99) mg/dL POC Glucose (mg/dL) 142 H 139 H 135 H (75-99) mg/dL Magnesium (1.6-2.3) mg/dL Alkaline Phosphatase (38-126) U/L Total Protein (6.3-8.2) g/dL Albumin (3.5-5.0) g/dL 05/13/18 05/13/18 05/13/18 Range/Units 05:10 05:10 05:47 RBC 3.42 L (4.30-5.90) m/uL Hgb 9.7 L D (13.0-17.5) gm/dL Hct 29.4 L (39.0-53.0) % Lymphocytes # 0.7 L (1.0-4.8) k/uL ABG HCO3 26 H (21-25) mmol/L ABG Total CO2 27 H (19-24) mmol/L ABG O2 Saturation 98.4 H (94-97) % Chloride 110 H (98-107) mmol/L Glucose 124 H (74-99) mg/dL POC Glucose (mg/dL) (75-99) mg/dL Magnesium 2.8 H (1.6-2.3) mg/dL Alkaline Phosphatase 31 L (38-126) U/L Total Protein 5.7 L (6.3-8.2) g/dL Albumin 3.2 L (3.5-5.0) g/dL 05/13/18 05/13/18 Range/Units 06:08 08:13 RBC (4.30-5.90) m/uL Hgb (13.0-17.5) gm/dL Hct (39.0-53.0) % Lymphocytes # (1.0-4.8) k/uL ABG HCO3 (21-25) mmol/L ABG Total CO2 (19-24) mmol/L ABG O2 Saturation (94-97) % Chloride (98-107) mmol/L Glucose (74-99) mg/dL POC Glucose (mg/dL) 170 H 193 H (75-99) mg/dL Magnesium (1.6-2.3) mg/dL Alkaline Phosphatase (38-126) U/L Total Protein (6.3-8.2) g/dL Albumin (3.5-5.0) g/dL - Imaging and Cardiology Chest x-ray: report reviewed, image reviewed Assessment and Plan (1) Coronary artery disease Current Visit: Yes Status: Chronic Code(s): I25.10 - ATHSCL HEART DISEASE OF [place] CORONARY ARTERY W/O ANG PCTRS SNOMED Code(s): 31316232 (2) Left main coronary artery disease Current Visit: Yes Status: Chronic Code(s): I25.10 - ATHSCL HEART DISEASE OF [place] CORONARY ARTERY W/O ANG PCTRS SNOMED Code(s): 876154206 (3) Hypertension Current Visit: Yes Status: Chronic Code(s): I10 - ESSENTIAL (PRIMARY) HYPERTENSION SNOMED Code(s): 93357464 (4) Hyperlipidemia Current Visit: Yes Status: Chronic Code(s): E78.5 - HYPERLIPIDEMIA, UNSPECIFIED SNOMED Code(s): 57860746 (5) Diabetes mellitus Current Visit: Yes Status: Chronic Code(s): E11.9 - TYPE 2 DIABETES MELLITUS WITHOUT COMPLICATIONS SNOMED Code(s): 45120198 (6) Single kidney Current Visit: Yes Status: Chronic Code(s): Z90.5 - ACQUIRED ABSENCE OF KIDNEY SNOMED Code(s): 225676729 (7) Family history of premature coronary artery disease Current Visit: Yes Status: Chronic Code(s): Z82.49 - FAMILY HX OF ISCHEM HEART DIS AND OTH DIS OF THE CIRC SYS SNOMED Code(s): 684554865 Plan: 1. Continue aspirin, statin, Plavix, beta katia therapy. Will increase beta katia therapy as tolerated. Wean Cleviprex as tolerated. 2. Ventilator management per pulmonology. Wean as tolerated. Will need aggressive pulmonary hygiene post extubation. 3. Increase activity once extubated. PT/OT/cardiac rehab following. 4. Will monitor daily labs and x-rays. Electrolyte replacement per protocol. 5. Insulin management per primary care service. 6. GI prophylaxis with Protonix, DVT prophylaxis with subcu heparin, SCDs. 7. Will discontinue [place] once extubated. Correct Cordis to continue CVP monitoring. 8. Pain control with current medication regimen. No Toradol. 9. Bronchodilators, steroids per pulmonology. 10. Mediastinal chest tube pulled without incident. Will discontinue pleural chest tubes once extubated. 11. More recommendations to follow pending patient progresses. Time with Patient: Greater than 30
[2018-05-13 10:04] LABS: Glucose,Whole Blood 174 mg/dL (75-99)
[2018-05-13 10:41] LABS: ABG Base Excess 2.6 mmol/L; ABG HCO3 27 mmol/L (21-25); ABG Oxygen Saturation 99.5 % (94-97); ABG PCO2 38 mmHg (35-45); ABG PH 7.45 (7.35-7.45); ABG PO2 115 mmHg (83-108); ABG TCO2 28 mmol/L (19-24)
[2018-05-13 12:40] LABS: Glucose,Whole Blood 121 mg/dL (75-99)
--- NOTE | 2018-05-13 13:29 | P.PN ---
Subjective Progress Note Date: 05/13/18 Principal diagnosis: Status post CABG postoperative day #2 This is a 63-year-old white male, known history of hypertension, dyslipidemia, type 2 diabetes, nonsmoker, nondrinker, strong family history of premature coronary artery disease, known history of GERD and previous Sacha's fundoplication. Patient had previous history of kidney donation to his sister. Over the last couple of months, the patient has been noticing some chest discomfort, and some dyspnea on minimal exertion, which he thought initially could be related to his GERD symptoms coming back. However his symptoms where becoming more frequently, and abating with rest. Patient eventually underwent a full cardiac workup including cardiac catheterization which showed significant left main disease approximately 80% proximal LAD stenosis of 70-80% and 99% stenosis of the proximal left circumflex and 80% stenosis in the midsegment. Mid RCA was 90% stenosed. Considering the findings, patient was referred to cardiac surgery, and he is scheduled to undergo surgery tomorrow. Patient denies any previous pulmonary history, never smoked, has been quite active until the last couple of months when he has been noticing worsening symptoms of dyspnea on exertion and chest discomfort. 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 And he is usually quite active in his job physically. Chest x-ray showed some linear scarring at the right base, unchanged compared to a chest x-ray in 2016. Spirometry showed mild to moderate restriction. Reevaluated today on 05/11/2018, patient just came back to the ICU from his myocardial revascularization. Patient is now on mechanical ventilation, ventilator settings are tidal volume of 550, IMV rate of 14, FiO2 of 100%, and PEEP of 10. ABG and chest x-ray are pending. His peak airway pressure is about 28, plateau pressure is 22. Patient's O2 saturation is 100% on those vent settings. Again x-ray and ABG are pending. Patient is hemodynamically stable, on mechanical ventilation, in no distress. Reevaluated today on 05/12/2018, patient is postoperative day #1. Shortly after I saw the patient yesterday, we noted that his oxygenation has been very poor and marginal. In spite of on the percent FiO2 and a PEEP of 10, his pO2 was very low and marginal. Hence we felt that the patient developed post CABG ARDS., And I have recommended lower tidal volumes, I have also recommended higher PEEP and now the PEEP today is at 16. I have Him on the percent through the night, and titrated FiO2 gradually presently today at 50%, and the PEEP at 16. ABG on those settings about an hour ago showed a pO2 of 101 pCO2 of 40 pH of 7.42. Hence I cut down the PEEP down to 14. And I kept him at 50% FiO2. Patient remains on a relatively low tidal volume of 450, his assist control rate is at 28, and his PEEP is at 14 at present. Chest x-ray is basically unremarkable. His baseline PFT showed some minimal restriction, and again this finding of post CABG ARDS is unexpected. But clearly that's what we are dealing with at present. Discussed his condition many times with different physicians on the case including the cardiac surgeon, and we felt that it would be best to support him at present and continue low tidal volume mode of mechanical ventilation. His peak airway pressure today is 35. His plateau pressure is 25. All labs were reviewed including his electrolytes and renal profile. CBC were all noted to be normal. Patient is hemodynamically stable, and he is on propofol presently at 50 mcg/kg per hour. Reevaluated today on 05/13/2018, patient remains on mechanical ventilation, his postoperative day #2. Patient did develop post CABG ARDS, and we have managed his treatment with low tidal volume mechanical ventilation, high PEEP, steroids , bronchodilators, and I was able to taper down his FiO2 to 50% and in the last 24 hours I was able to taper down his PEEP from 14 last night to 12 to 10 and this morning is down to 8. Patient maintain his excellent O2 saturation, and we have switch him from propofol earlier this morning to Precedex. Patient was given a trial of pressure support of 8 and The PEEP at 8. Patient did extremely well, and his follow-up ABG on that mode of mechanical ventilation for one hour showed excellent oxygenation with a pO2 of 115 pCO2 of 38. PH of 7.45. Hence, and while I was at bedside, patient had weaning parameters, and updated his family members about his condition, patient was noted to be extremely appropriate, following all instructions, endotracheal tube cuff leak test was done, and I proceeded to extubating the patient. Patient was extubated to a high flow nasal cannula at 7 L/m. Reevaluating the patient back and forth while I was in the ICU, and he seemed to tolerate the extubation extremely well. All his labs, medications, chest x-ray were all reviewed. Objective - Vital Signs Vital signs: Vital Signs Temp 96.8 F L 05/13/18 04:00 Pulse 102 H 05/13/18 13:00 Resp 19 05/13/18 13:00 BP 155/84 05/13/18 13:00 Pulse Ox 92 L 05/13/18 13:00 Intake & Output 05/12/18 05/13/18 05/13/18 18:59 06:59 18:59 Intake Total 6017.258 8289.099 645.923 Output Total 1180 1865 325 Balance 326.237 -630.901 320.923 Weight 109.6 kg 109.6 kg 109.6 kg Intake: IV 438 252 103 CO/CI 130 150 40 LR 200 pressure bags 108 102 63 Intake, IV Titration 948.237 682.099 382.923 Amount ACETAMINOPHEN IV (For NPO 100 ) 1,000 mg In Empty Bag 1 bag @ 400 mls/hr IVPB Q6HR [facility] Rx#:[id number] Clevidipine Butyrate 25 50.000 mg In Empty Bag 1 bag @ 1 MG/HR 2 mls/hr IV .Q24H [facility] Rx#:[id number] Dextrose 5% in Water 100 250 ml @ 618 mls/hr IV .Q10M PRN with Amiodarone 150 mg Rx#:[id number] Insulin Regular 100 unit 61.697 68.525 64.370 In Sodium Chloride 0.9% 100 ml @ Per Protocol IV .Q0M [facility] Rx#:[id number] Lactated Ringers 1,000 ml 240 420 200 @ 20 mls/hr IV .Q24H [facility] Rx#:[id number] Nitroglycerin-D5w Pmx 50 20.775 mg In Dextrose/Water 1 250ml.bag @ 5 MCG/MIN 1.5 mls/hr IV .Q24H [facility] Rx#: [id number] Propofol 1,000 mg In 275.765 193.574 68.553 Empty Bag 1 bag @ Titrate IV .Q0M [facility] Rx#: [id number] Oral 120 120 Tube Feeding 240 40 Other 60 Output: Chest Tube Drainage 70 70 10 Chest Tube Mediastinal 60 30 Left pleural 10 40 0 Right Pleural 0 0 10 Drainage 15 10 Right Calf 15 10 Urine 1095 1795 305 Other: Voiding Method Indwelling Catheter Indwelling Catheter Indwelling Catheter ABP, PAP, CO, CI - Last Documented Arterial Blood Pressure 148/64 Pulmonary Artery Pressure 34/19 Cardiac Output 9.8 Cardiac Index 4.6 - Exam Physical Exam: 63-year-old white male intubated, on mechanical ventilation, on Precedex this morning, off propofol, plan to hopefully wean the patient and extubate. Head: Atraumatic, normocephalic, endotracheal tube, orogastric tube are intact. HEENT:[Neck is supple.] [No neck masses.] [No thyromegaly.] [No JVD.] Chest: [Symmetrical chest expansion, diminished breath sounds at the bases, no rhonchi and no wheezes. Chest tubes are intact.] Cardiac Exam: [Normal S1 and S2, no S3 gallop, no murmur. Positive pericardial rub.] Abdomen: [Obese, Soft, nontender, no megaly, no rebound, no guarding, normal bowel sounds.] Extremities: [No clubbing, no edema, no cyanosis. Both lower extremities are wrapped with Orion wraps.] Neurological Exam: Alert oriented 3, follows all instructions, this is while on mechanical ventilation, but off propofol and on Precedex. Psychiatric: Normal mood, affect, and mental status examination. Skin: Surgical site is clean, no rashes. No evidence of erythema.. - Labs CBC & Chem 7: 05/13/18 05:10 05/13/18 05:10 Labs: Abnormal Lab Results - Last 24 Hours (Table) 05/12/18 05/12/18 05/12/18 Range/Units 13:43 14:08 15:02 RBC (4.30-5.90) m/uL Hgb (13.0-17.5) gm/dL Hct (39.0-53.0) % Lymphocytes # (1.0-4.8) k/uL ABG pO2 (83-108) mmHg ABG HCO3 26 H (21-25) mmol/L ABG Total CO2 27 H (19-24) mmol/L ABG O2 Saturation 98.9 H (94-97) % Chloride (98-107) mmol/L Glucose (74-99) mg/dL POC Glucose (mg/dL) 124 H 122 H (75-99) mg/dL Magnesium (1.6-2.3) mg/dL Alkaline Phosphatase (38-126) U/L Total Protein (6.3-8.2) g/dL Albumin (3.5-5.0) g/dL 05/12/18 05/12/18 05/12/18 Range/Units 16:02 18:03 20:13 RBC (4.30-5.90) m/uL Hgb (13.0-17.5) gm/dL Hct (39.0-53.0) % Lymphocytes # (1.0-4.8) k/uL ABG pO2 (83-108) mmHg ABG HCO3 (21-25) mmol/L ABG Total CO2 (19-24) mmol/L ABG O2 Saturation (94-97) % Chloride (98-107) mmol/L Glucose (74-99) mg/dL POC Glucose (mg/dL) 125 H 124 H 124 H (75-99) mg/dL Magnesium (1.6-2.3) mg/dL Alkaline Phosphatase (38-126) U/L Total Protein (6.3-8.2) g/dL Albumin (3.5-5.0) g/dL 05/12/18 05/13/18 05/13/18 Range/Units 23:00 00:55 02:04 RBC (4.30-5.90) m/uL Hgb (13.0-17.5) gm/dL Hct (39.0-53.0) % Lymphocytes # (1.0-4.8) k/uL ABG pO2 (83-108) mmHg ABG HCO3 (21-25) mmol/L ABG Total CO2 (19-24) mmol/L ABG O2 Saturation (94-97) % Chloride (98-107) mmol/L Glucose (74-99) mg/dL POC Glucose (mg/dL) 131 H 142 H 139 H (75-99) mg/dL Magnesium (1.6-2.3) mg/dL Alkaline Phosphatase (38-126) U/L Total Protein (6.3-8.2) g/dL Albumin (3.5-5.0) g/dL 05/13/18 05/13/18 05/13/18 Range/Units 04:10 05:10 05:10 RBC 3.42 L (4.30-5.90) m/uL Hgb 9.7 L D (13.0-17.5) gm/dL Hct 29.4 L (39.0-53.0) % Lymphocytes # 0.7 L (1.0-4.8) k/uL ABG pO2 (83-108) mmHg ABG HCO3 (21-25) mmol/L ABG Total CO2 (19-24) mmol/L ABG O2 Saturation (94-97) % Chloride 110 H (98-107) mmol/L Glucose 124 H (74-99) mg/dL POC Glucose (mg/dL) 135 H (75-99) mg/dL Magnesium 2.8 H (1.6-2.3) mg/dL Alkaline Phosphatase 31 L (38-126) U/L Total Protein 5.7 L (6.3-8.2) g/dL Albumin 3.2 L (3.5-5.0) g/dL 05/13/18 05/13/18 05/13/18 Range/Units 05:47 06:08 08:13 RBC (4.30-5.90) m/uL Hgb (13.0-17.5) gm/dL Hct (39.0-53.0) % Lymphocytes # (1.0-4.8) k/uL ABG pO2 (83-108) mmHg ABG HCO3 26 H (21-25) mmol/L ABG Total CO2 27 H (19-24) mmol/L ABG O2 Saturation 98.4 H (94-97) % Chloride (98-107) mmol/L Glucose (74-99) mg/dL POC Glucose (mg/dL) 170 H 193 H (75-99) mg/dL Magnesium (1.6-2.3) mg/dL Alkaline Phosphatase (38-126) U/L Total Protein (6.3-8.2) g/dL Albumin (3.5-5.0) g/dL 05/13/18 05/13/18 05/13/18 Range/Units 10:03 10:36 12:38 RBC (4.30-5.90) m/uL Hgb (13.0-17.5) gm/dL Hct (39.0-53.0) % Lymphocytes # (1.0-4.8) k/uL ABG pO2 115 H (83-108) mmHg ABG HCO3 27 H (21-25) mmol/L ABG Total CO2 28 H (19-24) mmol/L ABG O2 Saturation 99.5 H (94-97) % Chloride (98-107) mmol/L Glucose (74-99) mg/dL POC Glucose (mg/dL) 174 H 121 H (75-99) mg/dL Magnesium (1.6-2.3) mg/dL Alkaline Phosphatase (38-126) U/L Total Protein (6.3-8.2) g/dL Albumin (3.5-5.0) g/dL Assessment and Plan Assessment: Impression: 1 triple-vessel coronary artery disease, with left main coronary artery disease , patient is status post CABG, postoperative day #2. Patient is in the process of being weaned and extubated today. Please refer to my notes in the HPI. 2 post CABG ARDS, postoperative hypoxic respiratory failure, unexpected quite severe initially, however over the last 2 days, patient has demonstrated a significant improvement with his ARDS, I have been able to titrate down his FiO2 from 100% to 50%, and his PEEP from 16 down to 8 today, and I was able to extubate the patient to a high flow nasal cannula. 3 benign essential hypertension 4 type 2 diabetes 5 single kidney 6 family history of premature coronary artery disease. 7 postoperative hypoxic respiratory failure secondary to ARDS, unexpected and being addressed accordingly. Recommendation: While at bedside, I was able to make significant changes on the mode of mechanical ventilation, I was able to supervise weaning parameters, cut down the PEEP from 12-8, I placed the patient on pressure support mode of mechanical ventilation with pressure support of 8 and CPAP, and the patient seemed to tolerate the weaning well after over 1 hour. A cuff leak test was done and it was positive for leak, hence proceeded to extubating the patient and I was able to discontinue his Precedex at the time of extubation. We'll continue to follow. Family was all updated on his condition may also seems to be pleased with his recovery so far. Critical care time is 45 minutes Time with Patient: Greater than 30
[2018-05-13 14:08] LABS: Glucose,Whole Blood 110 mg/dL (75-99)
[2018-05-13] MEDS ORDERED: METOPROLOL TARTRATE 25 MG TAB PO STA (14:09)
--- NOTE | 2018-05-13 14:19 | P.PN ---
Subjective Progress Note Date: 05/13/18 This is a 63-year-old male one of Dr. 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, hyperlipidemia, diabetes mellitus type 2, GERD status post Sacha fundoplication, and history of premature coronary artery disease patient has been having significant effort to dyspnea with chest discomfort especially in the cold weather initially was getting better with rest and eventually did not get better after arrest he ended up seeing his primary care physician sent him for a dobutamine stress echo Dayco portion was normal however the patient the EKG portion was abnormal ended up seeing cardiology underwent left heart catheterization that showed a distal left main disease 70% as well as triple-vessel disease including the left anterior descending coronary artery with 70% left circumflex 99% and RCA 80%, he was seen in consultation by Pavel sims scheduled to go for open heart surgery tomorrow morning. 05/12: On May 11, patient underwent urgent quadruple coronary artery bypass grafting using the left internal mammary artery to the diagonal artery, then to the left anterior descending artery, reverse saphenous vein graft from the aorta to the posterior descending artery, reverse saphenous vein graft from the aorta to the high obtuse marginal artery. Patient remains intubated and on mechanical ventilation with tidal volume 450, FiO2 50 and PEEP of 16. Plan is to possibly wean this afternoon. Hannon catheter is in place with good urine output. In swollen drip is in place and blood sugars are running between 121 - 148. Chest tubes, right sided Cordis in place. 05/13: Patient was extubated late this morning. He denies having any sore throat, headache. He does have edema to the lips. His urine output is running 25-40 mL per hour. He complains of feeling tired. His surgical pain is controlled. He remains on insulin drip with blood sugars running 121-194. Plan will be to continue insulin drip for another 24 hours. Review of Systems Constitutional: Denies chronic headaches, Denies fever, Denies weakness, Denies weight gain, report fatigue Eyes: denies blurred vision, denies bulging eye, denies decreased vision, denies diplopia, denies discharge Ears, nose, mouth and throat: Denies dental pain, Denies neck lump, Denies sore throat Cardiovascular: Reports chest pain, Reports decreased exercise tolerance, Reports dyspnea on exertion, Reports high blood pressure, Reports shortness of breath, Denies syncope Respiratory: Denies congestion, Denies cough with sputum, Denies home oxygen, Denies sleep apnea, Denies snoring, Denies wheezing Gastrointestinal: Denies abdominal pain, Denies heartburn, Denies melena, Denies nausea, Denies vomiting Genitourinary: Denies dysuria, Denies nocturia, Denies polyuria Musculoskeletal: Denies myalgias Musculoskeletal: absent: ankle pain, ankle stiffness, ankle swelling, elbow pain , elbow stiffness, elbow swelling, foot pain, foot stiffness, foot swelling, hand pain, hand stiffness, hand swelling, hip pain, hip stiffness, hip swelling , knee pain, knee stiffness, knee swelling, shoulder pain, shoulder stiffness, shoulder swelling, wrist pain, wrist stiffness, wrist swelling Integumentary: Denies pruritus, Denies rash Neurological: Denies numbness, Denies weakness Psychiatric: Denies anxiety, Denies depression Endocrine: Denies fatigue, Denies weight change Objective - Vital Signs Vital signs: Vital Signs Temp 96.8 F L 05/13/18 04:00 Pulse 88 05/13/18 11:00 Resp 21 05/13/18 11:00 BP 136/83 05/13/18 11:00 Pulse Ox 93 L 05/13/18 11:23 Intake & Output 05/12/18 05/13/18 05/13/18 18:59 06:59 18:59 Intake Total 1233.410 5283.099 517.723 Output Total 1180 1865 210 Balance 326.237 -630.901 307.723 Weight 109.6 kg 109.6 kg 109.6 kg Intake: IV 438 252 65 CO/CI 130 150 20 LR 200 pressure bags 108 102 45 Intake, IV Titration 948.237 682.099 292.723 Amount ACETAMINOPHEN IV (For NPO 100 ) 1,000 mg In Empty Bag 1 bag @ 400 mls/hr IVPB Q6HR [facility] Rx#:[id number] Clevidipine Butyrate 25 46.933 mg In Empty Bag 1 bag @ 1 MG/HR 2 mls/hr IV .Q24H [facility] Rx#:[id number] Dextrose 5% in Water 100 250 ml @ 618 mls/hr IV .Q10M PRN with Amiodarone 150 mg Rx#:[id number] Insulin Regular 100 unit 61.697 68.525 17.237 In Sodium Chloride 0.9% 100 ml @ Per Protocol IV .Q0M [facility] Rx#:[id number] Lactated Ringers 1,000 ml 240 420 160 @ 20 mls/hr IV .Q24H [facility] Rx#:[id number] Nitroglycerin-D5w Pmx 50 20.775 mg In Dextrose/Water 1 250ml.bag @ 5 MCG/MIN 1.5 mls/hr IV .Q24H [facility] Rx#: [id number] Propofol 1,000 mg In 275.765 193.574 68.553 Empty Bag 1 bag @ Titrate IV .Q0M [facility] Rx#: [id number] Oral 120 120 Tube Feeding 240 40 Other 60 Output: Chest Tube Drainage 70 70 10 Chest Tube Mediastinal 60 30 Left pleural 10 40 0 Right Pleural 0 0 10 Drainage 15 10 Right Calf 15 10 Urine 1095 1795 190 Other: Voiding Method Indwelling Catheter Indwelling Catheter Indwelling Catheter ABP, PAP, CO, CI - Last Documented Arterial Blood Pressure 153/73 Pulmonary Artery Pressure 30/17 Cardiac Output 6.5 Cardiac Index 2.9 - Exam General appearance: average body habitus, no acute distress. - EENT Eyes: anicteric sclerae, EOMI, PERRLA, no ptosis, no scleral icterus, normal appearance ENT: hearing grossly normal, NA/AT, normal oropharynx Ears: bilateral: normal - Neck Neck: no lymphadenopathy, normal ROM, no rigidity, no stridor, no thyromegaly, right-sided Cordis Carotids: bilateral: upstroke normal Thyroid: bilateral: normal size - Respiratory Respiratory: bilateral: diminished, negative: dullness, rales, rhonchi, wheezing , prolonged expiration, prolonged inspiration, chest tubes in place - Cardiovascular Rhythm: regular Heart sounds: normal: S1, S2 Abnormal Heart Sounds: no systolic murmur, no S3 Gallop, no S4 Gallop - Gastrointestinal General gastrointestinal: normal bowel sounds, soft, no splenomegaly, no tenderness, no umbilical hernia Hannon catheter in place draining clear marjorie urine - Integumentary Integumentary: normal, normal turgor - Neurologic Neurologic: CNII-XII intact - Musculoskeletal Musculoskeletal: strength equal bilaterally - Psychiatric Psychiatric: Normal affect, alert and oriented 3 - Labs CBC & Chem 7: 05/13/18 05:10 05/13/18 05:10 Labs: Abnormal Lab Results - Last 24 Hours (Table) 05/12/18 05/12/18 05/12/18 Range/Units 12:04 13:06 13:43 RBC (4.30-5.90) m/uL Hgb (13.0-17.5) gm/dL Hct (39.0-53.0) % Lymphocytes # (1.0-4.8) k/uL ABG pO2 (83-108) mmHg ABG HCO3 26 H (21-25) mmol/L ABG Total CO2 27 H (19-24) mmol/L ABG O2 Saturation 98.9 H (94-97) % Chloride (98-107) mmol/L Glucose (74-99) mg/dL POC Glucose (mg/dL) 137 H 127 H (75-99) mg/dL Magnesium (1.6-2.3) mg/dL Alkaline Phosphatase (38-126) U/L Total Protein (6.3-8.2) g/dL Albumin (3.5-5.0) g/dL 05/12/18 05/12/18 05/12/18 Range/Units 14:08 15:02 16:02 RBC (4.30-5.90) m/uL Hgb (13.0-17.5) gm/dL Hct (39.0-53.0) % Lymphocytes # (1.0-4.8) k/uL ABG pO2 (83-108) mmHg ABG HCO3 (21-25) mmol/L ABG Total CO2 (19-24) mmol/L ABG O2 Saturation (94-97) % Chloride (98-107) mmol/L Glucose (74-99) mg/dL POC Glucose (mg/dL) 124 H 122 H 125 H (75-99) mg/dL Magnesium (1.6-2.3) mg/dL Alkaline Phosphatase (38-126) U/L Total Protein (6.3-8.2) g/dL Albumin (3.5-5.0) g/dL 05/12/18 05/12/18 05/12/18 Range/Units 18:03 20:13 23:00 RBC (4.30-5.90) m/uL Hgb (13.0-17.5) gm/dL Hct (39.0-53.0) % Lymphocytes # (1.0-4.8) k/uL ABG pO2 (83-108) mmHg ABG HCO3 (21-25) mmol/L ABG Total CO2 (19-24) mmol/L ABG O2 Saturation (94-97) % Chloride (98-107) mmol/L Glucose (74-99) mg/dL POC Glucose (mg/dL) 124 H 124 H 131 H (75-99) mg/dL Magnesium (1.6-2.3) mg/dL Alkaline Phosphatase (38-126) U/L Total Protein (6.3-8.2) g/dL Albumin (3.5-5.0) g/dL 05/13/18 05/13/18 05/13/18 Range/Units 00:55 02:04 04:10 RBC (4.30-5.90) m/uL Hgb (13.0-17.5) gm/dL Hct (39.0-53.0) % Lymphocytes # (1.0-4.8) k/uL ABG pO2 (83-108) mmHg ABG HCO3 (21-25) mmol/L ABG Total CO2 (19-24) mmol/L ABG O2 Saturation (94-97) % Chloride (98-107) mmol/L Glucose (74-99) mg/dL POC Glucose (mg/dL) 142 H 139 H 135 H (75-99) mg/dL Magnesium (1.6-2.3) mg/dL Alkaline Phosphatase (38-126) U/L Total Protein (6.3-8.2) g/dL Albumin (3.5-5.0) g/dL 05/13/18 05/13/18 05/13/18 Range/Units 05:10 05:10 05:47 RBC 3.42 L (4.30-5.90) m/uL Hgb 9.7 L D (13.0-17.5) gm/dL Hct 29.4 L (39.0-53.0) % Lymphocytes # 0.7 L (1.0-4.8) k/uL ABG pO2 (83-108) mmHg ABG HCO3 26 H (21-25) mmol/L ABG Total CO2 27 H (19-24) mmol/L ABG O2 Saturation 98.4 H (94-97) % Chloride 110 H (98-107) mmol/L Glucose 124 H (74-99) mg/dL POC Glucose (mg/dL) (75-99) mg/dL Magnesium 2.8 H (1.6-2.3) mg/dL Alkaline Phosphatase 31 L (38-126) U/L Total Protein 5.7 L (6.3-8.2) g/dL Albumin 3.2 L (3.5-5.0) g/dL 05/13/18 05/13/18 05/13/18 Range/Units 06:08 08:13 10:03 RBC (4.30-5.90) m/uL Hgb (13.0-17.5) gm/dL Hct (39.0-53.0) % Lymphocytes # (1.0-4.8) k/uL ABG pO2 (83-108) mmHg ABG HCO3 (21-25) mmol/L ABG Total CO2 (19-24) mmol/L ABG O2 Saturation (94-97) % Chloride (98-107) mmol/L Glucose (74-99) mg/dL POC Glucose (mg/dL) 170 H 193 H 174 H (75-99) mg/dL Magnesium (1.6-2.3) mg/dL Alkaline Phosphatase (38-126) U/L Total Protein (6.3-8.2) g/dL Albumin (3.5-5.0) g/dL 05/13/18 Range/Units 10:36 RBC (4.30-5.90) m/uL Hgb (13.0-17.5) gm/dL Hct (39.0-53.0) % Lymphocytes # (1.0-4.8) k/uL ABG pO2 115 H (83-108) mmHg ABG HCO3 27 H (21-25) mmol/L ABG Total CO2 28 H (19-24) mmol/L ABG O2 Saturation 99.5 H (94-97) % Chloride (98-107) mmol/L Glucose (74-99) mg/dL POC Glucose (mg/dL) (75-99) mg/dL Magnesium (1.6-2.3) mg/dL Alkaline Phosphatase (38-126) U/L Total Protein (6.3-8.2) g/dL Albumin (3.5-5.0) g/dL Assessment and Plan Plan: 1. Distal left main disease with triple-vessel coronary artery disease status post urgent quadruple coronary artery bypass grafting using the left internal mammary artery to the diagonal artery, then to the left anterior descending artery, reverse saphenous vein graft from the aorta to the posterior descending artery, reverse saphenous vein graft from the aorta to the high obtuse marginal artery. Continue plan per cardiothoracic surgery team. Continue aspirin 325 mg daily, Lipitor 40 mg daily, Plavix 75 mg daily, Lopressor 50 mg twice daily. Patient is on Solu-Medrol. 2. Hypertension and hypertensive cardiovascular disease. Continue Lopressor 25 mg orally twice every day. 3. Hyperlipidemia. Continue Lipitor 40 mg orally once every day. 4. Diabetes mellitus type 2. Patient is currently on insulin drip which will be continued another 24 hours. 5. DVT prophylaxis. Continue knee-high MEENA hose and SCDs. He is currently on heparin drip. 6. GI prophylaxis. Continue PPI. 7. Full code. Discharge plan: Return home with [facility] Impression and plan of care have been directed as dictated by the signing physician. Haydee Langston nurse practitioner acting as scribe for signing physician.
[2018-05-13] MEDS ORDERED: fentaNYL (PF) 50 MCG/ML 2 ML AMP IVP STA (15:13)
[2018-05-13 15:57] LABS: Glucose,Whole Blood 166 mg/dL (75-99)
[2018-05-13 18:07] LABS: Glucose,Whole Blood 144 mg/dL (75-99)
[2018-05-13 20:07] LABS: Glucose,Whole Blood 190 mg/dL (75-99)
[2018-05-13] MEDS: METOPROLOL TARTRATE 50 MG TAB PO SCH (21:14)
[2018-05-13] MEDS: SENNOSIDES-DOCUSATE SODIUM 1 EACH TAB PO SCH (21:15)
[2018-05-13] MEDS: HYDROcodone/APAP 5-325MG 1 EACH TAB PO PRN (21:16)
[2018-05-13 22:02] LABS: Glucose,Whole Blood 158 mg/dL (75-99)
[2018-05-14 00:13] LABS: Glucose,Whole Blood 107 mg/dL (75-99)
[2018-05-14] MEDS: HYDROcodone/APAP 5-325MG 1 EACH TAB PO PRN ×5 (00:57→21:17)
[2018-05-14 01:09] LABS: Glucose,Whole Blood 143 mg/dL (75-99)
[2018-05-14 01:37] LABS: Glucose,Whole Blood 153 mg/dL (75-99)
[2018-05-14 03:13] LABS: Glucose,Whole Blood 108 mg/dL (75-99)
[2018-05-14 04:18] LABS: Glucose,Whole Blood 169 mg/dL (75-99)
[2018-05-14 04:34] LABS: Basophils % (A) 0 %; Eosinophils # (A) 0.1 k/uL (0-0.7); Eosinophils % (A) 1 %; HCT 29.5 % (39.0-53.0); HGB 9.5 gm/dL (13.0-17.5); Lymphocytes # (A) 0.6 k/uL (1.0-4.8); Lymphocytes % (A) 7 %; MCH 27.9 pg (25.0-35.0); MCHC 32.1 g/dL (31.0-37.0); MCV 86.9 fL (80.0-100.0); Mean Platelet Volume 7.2; Monocytes # (A) 0.5 k/uL (0-1.0); Monocytes % (A) 5 %; Neutrophils % (A) 86 %; Platelet Count 159 k/uL (150-450); RBC 3.39 m/uL (4.30-5.90); RDW 14.7 % (11.5-15.5); WBC 9.3 k/uL (3.8-10.6)
[2018-05-14 04:50] LABS: ALT 24 U/L (21-72); AST 22 U/L (17-59); Albumin 3.2 g/dL (3.5-5.0); Alkaline Phosphatase 31 U/L (38-126); Anion Gap 6 mmol/L; Blood Urea Nitrogen 24 mg/dL (9-20); Calcium 8.6 mg/dL (8.4-10.2); Carbon Dioxide 26 mmol/L (22-30); Chloride 110 mmol/L (98-107); Glucose 162 mg/dL (74-99); Magnesium 2.6 mg/dL (1.6-2.3); Potassium 4.9 mmol/L (3.5-5.1); Sodium 142 mmol/L (137-145); Total Bilirubin 0.4 mg/dL (0.2-1.3); Total Protein 5.7 g/dL (6.3-8.2)
[2018-05-14 04:52] LABS: Glucose,Whole Blood 158 mg/dL (75-99)
[2018-05-14 05:56] LABS: Glucose,Whole Blood 142 mg/dL (75-99)
[2018-05-14] MEDS: INSULIN REGULAR 100 UNIT in SODIUM CHLORIDE 0.9% 100 ML IV SCH (06:02)
[2018-05-14] MEDS: methylPREDNISolone SOD SUCCI 125 MG/2 ML VIAL IV SCH (06:03)
--- NOTE | 2018-05-14 06:24 | XR ---
EXAMINATION TYPE: XR chest 1V portable DATE OF EXAM: 05/14/2018 HISTORY: post cardiac surgery. REFERENCE: Previous study dated 05/13/2018. FINDINGS: There has been a midline sternotomy. The patient is ET tube and NG tube been removed. The S wan-Gayle catheter is been removed. A right internal jugular sheath remains in place. There is cardiomegaly. There is bibasilar airspace disease. There are small, bilateral effusions, gre ater on the left than the right. IMPRESSION: CONTINUING POSTOPERATIVE CHANGE.
[2018-05-14 07:12] LABS: Glucose,Whole Blood 114 mg/dL (75-99)
[2018-05-14] MEDS: IPRATROPIUM-ALBUTEROL 3 ML NEB INHALATION SCH ×4 (07:36→20:06)
[2018-05-14] MEDS: CLEVIDIPINE BUTYRATE 25 MG in EMPTY BAG 1 BAG IV SCH ×3 (07:51→21:10)
[2018-05-14 08:14] LABS: Glucose,Whole Blood 264 mg/dL (75-99)
[2018-05-14] MEDS: ASPIRIN 325 MG TAB PO SCH (08:46)
[2018-05-14] MEDS: PANTOPRAZOLE 40 MG/10 ML VIAL IVP SCH (08:46)
[2018-05-14] MEDS: METOPROLOL TARTRATE 50 MG TAB PO SCH ×2 (08:47→21:11)
[2018-05-14] MEDS: ATORVASTATIN 40 MG TAB PO SCH (08:47)
[2018-05-14] MEDS: MUPIROCIN 2% OINT 22 GM TUBE NASAL SCH ×2 (08:47→21:11)
[2018-05-14] MEDS: CLOPIDOGREL 75 MG TAB PO SCH (08:47)
[2018-05-14] MEDS: HEPARIN SODIUM,PORCINE 5,000 UNIT/ML 1 ML VIAL SQ SCH ×3 (08:47→22:55)
[2018-05-14] MEDS ORDERED: LOSARTAN 50 MG TAB PO SCH (09:00)
--- NOTE | 2018-05-14 09:08 | PN ---
PROGRESS NOTE Mr. Kumar has been extubated. He looks very good. He feels strong. Breathing easier. Maintaining sinus rhythm. S1-S2 heard normally. Lungs revealed improved air entry. Abdomen and lower extremity exam is unchanged. Plan is to continue current medical regimen. Continue incentive spirometry and pulmonary toilet. Mr. Kumar is status post aortocoronary bypass surgery 48 hours ago. MMODL / IJN: [id number] /
[2018-05-14] MEDS ORDERED: FUROSEMIDE 10 MG/ML 2 ML VIAL IV ONE (09:21)
[2018-05-14 10:26] LABS: Glucose,Whole Blood 266 mg/dL (75-99)
--- NOTE | 2018-05-14 11:14 | P.PN ---
Subjective Progress Note Date: 05/14/18 Principal diagnosis: Left main disease with severe triple vessel coronary artery disease, overall preserved left ventricular function. 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 POD #3 urgent quadruple coronary artery bypass grafting using the left internal mammary artery sequentially to the diagonal artery, then to the left anterior descending artery, reverse saphenous vein graft from the aorta to the posterior descending artery, reverse saphenous vein graft from the aorta to the high obtuse marginal artery. Endoscopic harvesting of the right greater saphenous vein. Intraoperative transesophageal echocardiogram and epi-aortic scanning. Intraoperative graft flow measurements using the [employer] system. Postoperative prolonged mechanical ventilation, an unexpected outcome. The patient is currently sitting up in a recliner in no acute distress. Was successfully extubated yesterday at 10:54 am. Currently hemodynamically stable on no inotropes or pressors. Remains on Cleviprex for hypertension. No further hematuria. All chest tubes were discontinued yesterday as well as [place]- Gayle catheter. Objective - Vital Signs Vital signs: Vital Signs Temp 97.7 F 05/14/18 08:00 Pulse 86 05/14/18 10:00 Resp 30 H 05/14/18 10:00 BP 143/73 05/14/18 02:00 Pulse Ox 93 L 05/14/18 10:00 Intake & Output 05/13/18 05/14/18 05/14/18 18:59 06:59 18:59 Intake Total 9183.035 6258.324 688.296 Output Total 665 740 275 Balance 857.127 732.324 413.296 Weight 109.6 kg 104.8 kg Intake: IV 133 292 104 CO/CI 40 Lactated Ringers 1,000 ml 220 80 @ 20 mls/hr IV .Q24H [facility] Rx#:[id number] pressure bags 93 72 24 Intake, IV Titration 729.127 180.324 84.296 Amount Clevidipine Butyrate 25 75.867 97.333 50 mg In Empty Bag 1 bag @ 1 MG/HR 2 mls/hr IV .Q24H [facility] Rx#:[id number] Insulin Regular 100 unit 102.707 62.991 34.296 In Sodium Chloride 0.9% 100 ml @ Per Protocol IV .Q0M [facility] Rx#:[id number] Lactated Ringers 1,000 ml 482 20 @ 20 mls/hr IV .Q24H [facility] Rx#:[id number] Propofol 1,000 mg In 68.553 Empty Bag 1 bag @ Titrate IV .Q0M [facility] Rx#: [id number] Oral 620 1000 500 Tube Feeding 40 Output: Chest Tube Drainage 10 Left pleural 0 Right Pleural 10 Drainage 10 Right Calf 10 Urine 645 740 275 Other: Voiding Method Indwelling Catheter Urinal Urinal # Voids 0 1 ABP, PAP, CO, CI - Last Documented Arterial Blood Pressure 168/67 Pulmonary Artery Pressure 34/19 Cardiac Output 9.8 Cardiac Index 4.6 - Constitutional General appearance: Present: cooperative, no acute distress - Respiratory Details: Lungs sounds diminished bilaterally. Respirations even, nonlabored. Currently on 13 L high flow nasal cannula with oxygen saturation 88-90%. Able to achieve 750 mL on his incentive spirometry. Strong cough with thick yellow sputum. - Cardiovascular Details: S1, S2 present. Regular rate and rhythm, sinus rhythm on telemetry. Sternum stable. A/V epicardial pacemaker wires present, grounded. Palpable peripheral pulses bilaterally. Trace right lower extremity edema present. No calf pain or tenderness noted. Right internal jugular Cordis, left radial arterial line present. Heart hugger, antiembolism stockings, SCDs present. - Gastrointestinal Gastrointestinal Comment(s): Abdomen soft, nontender, nondistended. Hypoactive bowel sounds present 4 quadrants. Positive flatus, negative bowel movement. Tolerating diet. - Genitourinary Genitourinary Comment(s): Hannon discontinued yesterday. Patient continues to void, outcome overnight 740 mL. - Integumentary Integumentary Comment(s): Skin is warm and dry with evidence of good perfusion. Anterior chest incision well approximated and covered with dry intact dressing. Right lower extremity EVH site well approximated. - Neurologic Neurologic: Present: CNII-XII intact - Musculoskeletal Musculoskeletal: Present: strength equal bilaterally - Psychiatric Psychiatric: Present: A&O x's 3, appropriate affect, intact judgment & insight - Allied health notes Allied health notes reviewed: nursing - Labs CBC & Chem 7: 05/14/18 04:15 05/14/18 04:15 Labs: Abnormal Lab Results - Last 24 Hours (Table) 05/13/18 05/13/18 05/13/18 Range/Units 10:36 12:38 14:06 RBC (4.30-5.90) m/uL Hgb (13.0-17.5) gm/dL Hct (39.0-53.0) % Neutrophils # (1.3-7.7) k/uL Lymphocytes # (1.0-4.8) k/uL ABG pO2 115 H (83-108) mmHg ABG HCO3 27 H (21-25) mmol/L ABG Total CO2 28 H (19-24) mmol/L ABG O2 Saturation 99.5 H (94-97) % Chloride (98-107) mmol/L BUN (9-20) mg/dL Glucose (74-99) mg/dL POC Glucose (mg/dL) 121 H 110 H (75-99) mg/dL Magnesium (1.6-2.3) mg/dL Alkaline Phosphatase (38-126) U/L Total Protein (6.3-8.2) g/dL Albumin (3.5-5.0) g/dL 05/13/18 05/13/18 05/13/18 Range/Units 15:55 18:06 20:05 RBC (4.30-5.90) m/uL Hgb (13.0-17.5) gm/dL Hct (39.0-53.0) % Neutrophils # (1.3-7.7) k/uL Lymphocytes # (1.0-4.8) k/uL ABG pO2 (83-108) mmHg ABG HCO3 (21-25) mmol/L ABG Total CO2 (19-24) mmol/L ABG O2 Saturation (94-97) % Chloride (98-107) mmol/L BUN (9-20) mg/dL Glucose (74-99) mg/dL POC Glucose (mg/dL) 166 H 144 H 190 H (75-99) mg/dL Magnesium (1.6-2.3) mg/dL Alkaline Phosphatase (38-126) U/L Total Protein (6.3-8.2) g/dL Albumin (3.5-5.0) g/dL 05/13/18 05/14/18 05/14/18 Range/Units 22:00 00:11 01:08 RBC (4.30-5.90) m/uL Hgb (13.0-17.5) gm/dL Hct (39.0-53.0) % Neutrophils # (1.3-7.7) k/uL Lymphocytes # (1.0-4.8) k/uL ABG pO2 (83-108) mmHg ABG HCO3 (21-25) mmol/L ABG Total CO2 (19-24) mmol/L ABG O2 Saturation (94-97) % Chloride (98-107) mmol/L BUN (9-20) mg/dL Glucose (74-99) mg/dL POC Glucose (mg/dL) 158 H 107 H 143 H (75-99) mg/dL Magnesium (1.6-2.3) mg/dL Alkaline Phosphatase (38-126) U/L Total Protein (6.3-8.2) g/dL Albumin (3.5-5.0) g/dL 05/14/18 05/14/18 05/14/18 Range/Units 01:35 03:12 04:15 RBC (4.30-5.90) m/uL Hgb (13.0-17.5) gm/dL Hct (39.0-53.0) % Neutrophils # (1.3-7.7) k/uL Lymphocytes # (1.0-4.8) k/uL ABG pO2 (83-108) mmHg ABG HCO3 (21-25) mmol/L ABG Total CO2 (19-24) mmol/L ABG O2 Saturation (94-97) % Chloride 110 H (98-107) mmol/L BUN 24 H (9-20) mg/dL Glucose 162 H (74-99) mg/dL POC Glucose (mg/dL) 153 H 108 H (75-99) mg/dL Magnesium 2.6 H (1.6-2.3) mg/dL Alkaline Phosphatase 31 L (38-126) U/L Total Protein 5.7 L (6.3-8.2) g/dL Albumin 3.2 L (3.5-5.0) g/dL 05/14/18 05/14/18 05/14/18 Range/Units 04:15 04:16 04:50 RBC 3.39 L (4.30-5.90) m/uL Hgb 9.5 L (13.0-17.5) gm/dL Hct 29.5 L (39.0-53.0) % Neutrophils # 8.0 H (1.3-7.7) k/uL Lymphocytes # 0.6 L (1.0-4.8) k/uL ABG pO2 (83-108) mmHg ABG HCO3 (21-25) mmol/L ABG Total CO2 (19-24) mmol/L ABG O2 Saturation (94-97) % Chloride (98-107) mmol/L BUN (9-20) mg/dL Glucose (74-99) mg/dL POC Glucose (mg/dL) 169 H 158 H (75-99) mg/dL Magnesium (1.6-2.3) mg/dL Alkaline Phosphatase (38-126) U/L Total Protein (6.3-8.2) g/dL Albumin (3.5-5.0) g/dL 05/14/18 05/14/18 05/14/18 Range/Units 05:55 07:10 08:12 RBC (4.30-5.90) m/uL Hgb (13.0-17.5) gm/dL Hct (39.0-53.0) % Neutrophils # (1.3-7.7) k/uL Lymphocytes # (1.0-4.8) k/uL ABG pO2 (83-108) mmHg ABG HCO3 (21-25) mmol/L ABG Total CO2 (19-24) mmol/L ABG O2 Saturation (94-97) % Chloride (98-107) mmol/L BUN (9-20) mg/dL Glucose (74-99) mg/dL POC Glucose (mg/dL) 142 H 114 H 264 H (75-99) mg/dL Magnesium (1.6-2.3) mg/dL Alkaline Phosphatase (38-126) U/L Total Protein (6.3-8.2) g/dL Albumin (3.5-5.0) g/dL 05/14/18 Range/Units 10:22 RBC (4.30-5.90) m/uL Hgb (13.0-17.5) gm/dL Hct (39.0-53.0) % Neutrophils # (1.3-7.7) k/uL Lymphocytes # (1.0-4.8) k/uL ABG pO2 (83-108) mmHg ABG HCO3 (21-25) mmol/L ABG Total CO2 (19-24) mmol/L ABG O2 Saturation (94-97) % Chloride (98-107) mmol/L BUN (9-20) mg/dL Glucose (74-99) mg/dL POC Glucose (mg/dL) 266 H (75-99) mg/dL Magnesium (1.6-2.3) mg/dL Alkaline Phosphatase (38-126) U/L Total Protein (6.3-8.2) g/dL Albumin (3.5-5.0) g/dL - Imaging and Cardiology Chest x-ray: report reviewed, image reviewed Assessment and Plan (1) Coronary artery disease Current Visit: Yes Status: Chronic Code(s): I25.10 - ATHSCL HEART DISEASE OF [place] CORONARY ARTERY W/O ANG PCTRS SNOMED Code(s): 07147890 (2) Left main coronary artery disease Current Visit: Yes Status: Chronic Code(s): I25.10 - ATHSCL HEART DISEASE OF [place] CORONARY ARTERY W/O ANG PCTRS SNOMED Code(s): 113917940 (3) Hypertension Current Visit: Yes Status: Chronic Code(s): I10 - ESSENTIAL (PRIMARY) HYPERTENSION SNOMED Code(s): 51320064 (4) Hyperlipidemia Current Visit: Yes Status: Chronic Code(s): E78.5 - HYPERLIPIDEMIA, UNSPECIFIED SNOMED Code(s): 26527640 (5) Diabetes mellitus Current Visit: Yes Status: Chronic Code(s): E11.9 - TYPE 2 DIABETES MELLITUS WITHOUT COMPLICATIONS SNOMED Code(s): 87851230 (6) Single kidney Current Visit: Yes Status: Chronic Code(s): Z90.5 - ACQUIRED ABSENCE OF KIDNEY SNOMED Code(s): 863539013 (7) Family history of premature coronary artery disease Current Visit: Yes Status: Chronic Code(s): Z82.49 - FAMILY HX OF ISCHEM HEART DIS AND OTH DIS OF THE CIRC SYS SNOMED Code(s): 184514151 Plan: 1. Continue aspirin, statin, Plavix, beta katia therapy. Will increase beta katia therapy as tolerated. Wean Cleviprex as tolerated. Will re-add losartan. 2. Wean O2 as tolerated. Encourage incentive spirometry use 10 times every hour while awake. IV Lasix given per pulmonology. 3. Increase activity as tolerated, out of bed to chair for meals, ambulate in hallway. PT/OT/cardiac rehab following. 4. Will monitor daily labs and x-rays. Electrolyte replacement per protocol. 5. Insulin management per primary care service. 6. GI prophylaxis with Protonix, DVT prophylaxis with subcu heparin, SCDs. 7. Discontinue Cordis. 8. Pain control with current medication regimen. No Toradol. 9. Bronchodilators, steroids per pulmonology. 10. More recommendations to follow pending patient progress. Time with Patient: Greater than 30
[2018-05-14 11:15] LABS: Glucose,Whole Blood 215 mg/dL (75-99)
--- NOTE | 2018-05-14 12:34 | P.PN ---
Subjective Progress Note Date: 05/14/18 Principal diagnosis: Status post CABG postoperative day #3 This is a 63-year-old white male, known history of hypertension, dyslipidemia, type 2 diabetes, nonsmoker, nondrinker, strong family history of premature coronary artery disease, known history of GERD and previous Sacha's fundoplication. Patient had previous history of kidney donation to his sister. Over the last couple of months, the patient has been noticing some chest discomfort, and some dyspnea on minimal exertion, which he thought initially could be related to his GERD symptoms coming back. However his symptoms where becoming more frequently, and abating with rest. Patient eventually underwent a full cardiac workup including cardiac catheterization which showed significant left main disease approximately 80% proximal LAD stenosis of 70-80% and 99% stenosis of the proximal left circumflex and 80% stenosis in the midsegment. Mid RCA was 90% stenosed. Considering the findings, patient was referred to cardiac surgery, and he is scheduled to undergo surgery tomorrow. Patient denies any previous pulmonary history, never smoked, has been quite active until the last couple of months when he has been noticing worsening symptoms of dyspnea on exertion and chest discomfort. 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 And he is usually quite active in his job physically. Chest x-ray showed some linear scarring at the right base, unchanged compared to a chest x-ray in 2016. Spirometry showed mild to moderate restriction. Reevaluated today on 05/11/2018, patient just came back to the ICU from his myocardial revascularization. Patient is now on mechanical ventilation, ventilator settings are tidal volume of 550, IMV rate of 14, FiO2 of 100%, and PEEP of 10. ABG and chest x-ray are pending. His peak airway pressure is about 28, plateau pressure is 22. Patient's O2 saturation is 100% on those vent settings. Again x-ray and ABG are pending. Patient is hemodynamically stable, on mechanical ventilation, in no distress. Reevaluated today on 05/12/2018, patient is postoperative day #1. Shortly after I saw the patient yesterday, we noted that his oxygenation has been very poor and marginal. In spite of on the percent FiO2 and a PEEP of 10, his pO2 was very low and marginal. Hence we felt that the patient developed post CABG ARDS., And I have recommended lower tidal volumes, I have also recommended higher PEEP and now the PEEP today is at 16. I have Him on the percent through the night, and titrated FiO2 gradually presently today at 50%, and the PEEP at 16. ABG on those settings about an hour ago showed a pO2 of 101 pCO2 of 40 pH of 7.42. Hence I cut down the PEEP down to 14. And I kept him at 50% FiO2. Patient remains on a relatively low tidal volume of 450, his assist control rate is at 28, and his PEEP is at 14 at present. Chest x-ray is basically unremarkable. His baseline PFT showed some minimal restriction, and again this finding of post CABG ARDS is unexpected. But clearly that's what we are dealing with at present. Discussed his condition many times with different physicians on the case including the cardiac surgeon, and we felt that it would be best to support him at present and continue low tidal volume mode of mechanical ventilation. His peak airway pressure today is 35. His plateau pressure is 25. All labs were reviewed including his electrolytes and renal profile. CBC were all noted to be normal. Patient is hemodynamically stable, and he is on propofol presently at 50 mcg/kg per hour. Reevaluated today on 05/13/2018, patient remains on mechanical ventilation, his postoperative day #2. Patient did develop post CABG ARDS, and we have managed his treatment with low tidal volume mechanical ventilation, high PEEP, steroids , bronchodilators, and I was able to taper down his FiO2 to 50% and in the last 24 hours I was able to taper down his PEEP from 14 last night to 12 to 10 and this morning is down to 8. Patient maintain his excellent O2 saturation, and we have switch him from propofol earlier this morning to Precedex. Patient was given a trial of pressure support of 8 and The PEEP at 8. Patient did extremely well, and his follow-up ABG on that mode of mechanical ventilation for one hour showed excellent oxygenation with a pO2 of 115 pCO2 of 38. PH of 7.45. Hence, and while I was at bedside, patient had weaning parameters, and updated his family members about his condition, patient was noted to be extremely appropriate, following all instructions, endotracheal tube cuff leak test was done, and I proceeded to extubating the patient. Patient was extubated to a high flow nasal cannula at 7 L/m. Reevaluating the patient back and forth while I was in the ICU, and he seemed to tolerate the extubation extremely well. All his labs, medications, chest x-ray were all reviewed. Reevaluated today on 05/14/2018, patient remains in the ICU, he was extubated yesterday, however he continues to require significant amount of oxygen via high flow nasal cannula, presently at 13 L/m. O2 saturation remains marginal in the low 90s. The chest x-ray is showing evidence of atelectasis and interstitial edema with bilateral pleural effusions, hence I recommended a small dose of Lasix 20 mg IV push to be given this morning. Patient is able to do well with incentive spirometry, he does have some productive cough, and his sputum was sent for cultures. No evidence of leukocytosis, hemoglobin is 9.5. His basic metabolic profile is normal and renal profile is normal. Creatinine is 0.88. Patient remains to have hypertension, and he is on Klonopin exit drip. Chest tubes and his Billings-Gayle catheter was discontinued yesterday Objective - Vital Signs Vital signs: Vital Signs Temp 97.7 F 05/14/18 08:00 Pulse 72 05/14/18 11:44 Resp 18 05/14/18 11:30 BP 143/73 05/14/18 02:00 Pulse Ox 96 05/14/18 11:30 Intake & Output 05/13/18 05/14/18 05/14/18 18:59 06:59 18:59 Intake Total 7864.921 8595.324 739.648 Output Total 665 740 700 Balance 857.127 732.324 39.648 Weight 109.6 kg 104.8 kg Intake: IV 133 292 130 CO/CI 40 Lactated Ringers 1,000 ml 220 100 @ 20 mls/hr IV .Q24H SE[facility] Rx#:[id number] pressure bags 93 72 30 Intake, IV Titration 729.127 180.324 109.648 Amount Clevidipine Butyrate 25 75.867 97.333 63.333 mg In Empty Bag 1 bag @ 1 MG/HR 2 mls/hr IV .Q24H SEJAL Rx#:[id number] Insulin Regular 100 unit 102.707 62.991 46.315 In Sodium Chloride 0.9% 100 ml @ Per Protocol IV .Q0M [facility] Rx#:[id number] Lactated Ringers 1,000 ml 482 20 @ 20 mls/hr IV .Q24H SE[facility] Rx#:[id number] Propofol 1,000 mg In 68.553 Empty Bag 1 bag @ Titrate IV .Q0M SEJAL Rx#: [id number] Oral 620 1000 500 Tube Feeding 40 Output: Chest Tube Drainage 10 Left pleural 0 Right Pleural 10 Drainage 10 Right Calf 10 Urine 645 740 700 Other: Voiding Method Indwelling Catheter Urinal Urinal # Voids 0 1 ABP, PAP, CO, CI - Last Documented Arterial Blood Pressure 140/60 Pulmonary Artery Pressure 34/19 Cardiac Output 9.8 Cardiac Index 4.6 - Exam Physical Exam: 63-year-old white male on a bedside recliner, on high flow nasal cannula, in no distress. Head: Atraumatic, normocephalic, t. HEENT:[Neck is supple.] [No neck masses.] [No thyromegaly.] [No JVD.] Chest: [Symmetrical chest expansion, diminished breath sounds at the bases, no rhonchi and no wheezes. Cardiac Exam: [Normal S1 and S2, no S3 gallop, no murmur. Positive pericardial rub.] Abdomen: [Obese, Soft, nontender, no megaly, no rebound, no guarding, normal bowel sounds.] Extremities: [No clubbing, no edema, no cyanosis. Both lower extremities are wrapped with Orion wraps.] Neurological Exam: Alert oriented 3, follows all instructions, Psychiatric: Normal mood, affect, and mental status examination. Skin: Surgical site is clean, no rashes. No evidence of erythema.. - Labs CBC & Chem 7: 05/14/18 04:15 05/14/18 04:15 Labs: Abnormal Lab Results - Last 24 Hours (Table) 05/13/18 05/13/18 05/13/18 Range/Units 12:38 14:06 15:55 RBC (4.30-5.90) m/uL Hgb (13.0-17.5) gm/dL Hct (39.0-53.0) % Neutrophils # (1.3-7.7) k/uL Lymphocytes # (1.0-4.8) k/uL Chloride (98-107) mmol/L BUN (9-20) mg/dL Glucose (74-99) mg/dL POC Glucose (mg/dL) 121 H 110 H 166 H (75-99) mg/dL Magnesium (1.6-2.3) mg/dL Alkaline Phosphatase (38-126) U/L Total Protein (6.3-8.2) g/dL Albumin (3.5-5.0) g/dL 05/13/18 05/13/18 05/13/18 Range/Units 18:06 20:05 22:00 RBC (4.30-5.90) m/uL Hgb (13.0-17.5) gm/dL Hct (39.0-53.0) % Neutrophils # (1.3-7.7) k/uL Lymphocytes # (1.0-4.8) k/uL Chloride (98-107) mmol/L BUN (9-20) mg/dL Glucose (74-99) mg/dL POC Glucose (mg/dL) 144 H 190 H 158 H (75-99) mg/dL Magnesium (1.6-2.3) mg/dL Alkaline Phosphatase (38-126) U/L Total Protein (6.3-8.2) g/dL Albumin (3.5-5.0) g/dL 05/14/18 05/14/18 05/14/18 Range/Units 00:11 01:08 01:35 RBC (4.30-5.90) m/uL Hgb (13.0-17.5) gm/dL Hct (39.0-53.0) % Neutrophils # (1.3-7.7) k/uL Lymphocytes # (1.0-4.8) k/uL Chloride (98-107) mmol/L BUN (9-20) mg/dL Glucose (74-99) mg/dL POC Glucose (mg/dL) 107 H 143 H 153 H (75-99) mg/dL Magnesium (1.6-2.3) mg/dL Alkaline Phosphatase (38-126) U/L Total Protein (6.3-8.2) g/dL Albumin (3.5-5.0) g/dL 05/14/18 05/14/18 05/14/18 Range/Units 03:12 04:15 04:15 RBC 3.39 L (4.30-5.90) m/uL Hgb 9.5 L (13.0-17.5) gm/dL Hct 29.5 L (39.0-53.0) % Neutrophils # 8.0 H (1.3-7.7) k/uL Lymphocytes # 0.6 L (1.0-4.8) k/uL Chloride 110 H (98-107) mmol/L BUN 24 H (9-20) mg/dL Glucose 162 H (74-99) mg/dL POC Glucose (mg/dL) 108 H (75-99) mg/dL Magnesium 2.6 H (1.6-2.3) mg/dL Alkaline Phosphatase 31 L (38-126) U/L Total Protein 5.7 L (6.3-8.2) g/dL Albumin 3.2 L (3.5-5.0) g/dL 05/14/18 05/14/18 05/14/18 Range/Units 04:16 04:50 05:55 RBC (4.30-5.90) m/uL Hgb (13.0-17.5) gm/dL Hct (39.0-53.0) % Neutrophils # (1.3-7.7) k/uL Lymphocytes # (1.0-4.8) k/uL Chloride (98-107) mmol/L BUN (9-20) mg/dL Glucose (74-99) mg/dL POC Glucose (mg/dL) 169 H 158 H 142 H (75-99) mg/dL Magnesium (1.6-2.3) mg/dL Alkaline Phosphatase (38-126) U/L Total Protein (6.3-8.2) g/dL Albumin (3.5-5.0) g/dL 05/14/18 05/14/18 05/14/18 Range/Units 07:10 08:12 10:22 RBC (4.30-5.90) m/uL Hgb (13.0-17.5) gm/dL Hct (39.0-53.0) % Neutrophils # (1.3-7.7) k/uL Lymphocytes # (1.0-4.8) k/uL Chloride (98-107) mmol/L BUN (9-20) mg/dL Glucose (74-99) mg/dL POC Glucose (mg/dL) 114 H 264 H 266 H (75-99) mg/dL Magnesium (1.6-2.3) mg/dL Alkaline Phosphatase (38-126) U/L Total Protein (6.3-8.2) g/dL Albumin (3.5-5.0) g/dL 05/14/18 Range/Units 11:13 RBC (4.30-5.90) m/uL Hgb (13.0-17.5) gm/dL Hct (39.0-53.0) % Neutrophils # (1.3-7.7) k/uL Lymphocytes # (1.0-4.8) k/uL Chloride (98-107) mmol/L BUN (9-20) mg/dL Glucose (74-99) mg/dL POC Glucose (mg/dL) 215 H (75-99) mg/dL Magnesium (1.6-2.3) mg/dL Alkaline Phosphatase (38-126) U/L Total Protein (6.3-8.2) g/dL Albumin (3.5-5.0) g/dL Assessment and Plan Assessment: Impression: 1 triple-vessel coronary artery disease, with left main coronary artery disease , patient is status post CABG, postoperative day #3 patient was extubated on , still requiring high flow O2. 2 post CABG ARDS, postoperative hypoxic respiratory failure, unexpected quite severe initially, however the patient was extubated yesterday uneventfully. 3 benign essential hypertension 4 type 2 diabetes 5 single kidney 6 family history of premature coronary artery disease. 7 postoperative hypoxic respiratory failure secondary to ARDS, unexpected and being addressed accordingly. 8 suspect some component of diastolic congestive heart failure/fluid overload. Hence a dose of Lasix was given 20 mg IV push times one. Recommendation: Continue high flow O2, continue incentive spirometry, bronchodilators, I will cut down the Solu-Medrol from 60 mg every 6 hours to 40 mg every 8 hours, continue ambulation, patient remains marginal because of his pulmonary status, and because of his marginal O2 saturation sputum cultures were ordered. Patient must remain in the ICU. We'll continue to follow closely. Time with Patient: Less than 30
[2018-05-14] MEDS ORDERED: LOSARTAN 50 MG TAB PO STA (12:47)
[2018-05-14 13:25] LABS: Glucose,Whole Blood 200 mg/dL (75-99)
[2018-05-14] MEDS: methylPREDNISolone SOD SUCCI 40 MG/ML 1 ML VIAL IV SCH ×2 (15:52→22:55)
[2018-05-14 15:54] LABS: Glucose,Whole Blood 131 mg/dL (75-99)
[2018-05-14] MEDS: LACTATED RINGERS 1,000 ML IV SCH (15:58)
[2018-05-14 17:05] LABS: Glucose,Whole Blood 105 mg/dL (75-99)
[2018-05-14] MEDS: INSULIN ASPART 100 UNIT/ML 1 ML 10 ML VIAL SQ SCH (17:08)
[2018-05-14] MEDS ORDERED: INSULIN ASPART 100 UNIT/ML 1 ML 10 ML VIAL SQ SCH (17:30)
[2018-05-14 20:26] LABS: Glucose,Whole Blood 140 mg/dL (75-99)
[2018-05-14] MEDS: INSULIN DETEMIR 100 UNIT/ML 10 ML VIAL SQ SCH (21:11)
[2018-05-14] MEDS: SENNOSIDES-DOCUSATE SODIUM 1 EACH TAB PO SCH (21:11)
[2018-05-14] MEDS: MELATONIN 3 MG TABLET PO SCH (21:11)
--- NOTE | 2018-05-14 21:39 | P.PN ---
Subjective Progress Note Date: 05/14/18 This is a 63-year-old male one of Dr. 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, hyperlipidemia, diabetes mellitus type 2, GERD status post Sacha fundoplication, and history of premature coronary artery disease patient has been having significant effort to dyspnea with chest discomfort especially in the cold weather initially was getting better with rest and eventually did not get better after arrest he ended up seeing his primary care physician sent him for a dobutamine stress echo Dayco portion was normal however the patient the EKG portion was abnormal ended up seeing cardiology underwent left heart catheterization that showed a distal left main disease 70% as well as triple-vessel disease including the left anterior descending coronary artery with 70% left circumflex 99% and RCA 80%, he was seen in consultation by Pavel neal surgery scheduled to go for open heart surgery tomorrow morning. in 05/12: On May 11, patient underwent urgent quadruple coronary artery bypass grafting using the left internal mammary artery to the diagonal artery, then to the left anterior descending artery, reverse saphenous vein graft from the aorta to the posterior descending artery, reverse saphenous vein graft from the aorta to the high obtuse marginal artery. Patient remains intubated and on mechanical ventilation with tidal volume 450, FiO2 50 and PEEP of 16. Plan is to possibly wean this afternoon. Hannon catheter is in place with good urine output. In swollen drip is in place and blood sugars are running between 121 - 148. Chest tubes, right sided Cordis in place. 05/13: Patient was extubated late this morning. He denies having any sore throat, headache. He does have edema to the lips. His urine output is running 25-40 mL per hour. He complains of feeling tired. His surgical pain is controlled. He remains on insulin drip with blood sugars running 121-194. Plan will be to continue insulin drip for another 24 hours. 05/14 patient remains in ICu, conversational dyspnea noted, has 10l o2 NC, no urinary difficulties no chest pain, patient requirs a total of 165 units of insulin x 24 hrs, patient currently on solumedrol 40q 8 hrs, and will be switched to novolog 14 units premeal starting dinner and levemir at 30 units at hs. this is half of his current requirments but solumedrol was recently decreased. appetite is marginal but ok 75 % of meal. insulin drip will be discontinued after dinner meal tonight Objective - Vital Signs Vital signs: Vital Signs Temp 97.6 F 05/14/18 13:00 Pulse 80 05/14/18 14:00 Resp 23 05/14/18 14:00 BP 143/73 05/14/18 02:00 Pulse Ox 96 05/14/18 14:00 Intake & Output 05/13/18 05/14/18 05/14/18 18:59 06:59 18:59 Intake Total 9730.625 1929.324 1335.248 Output Total 665 740 925 Balance 857.127 732.324 410.248 Weight 109.6 kg 104.8 kg Intake: IV 133 292 208 CO/CI 40 Lactated Ringers 1,000 ml 220 160 @ 20 mls/hr IV .Q24H [facility] Rx#:[id number] pressure bags 93 72 48 Intake, IV Titration 729.127 180.324 127.248 Amount Clevidipine Butyrate 25 75.867 97.333 80.933 mg In Empty Bag 1 bag @ 1 MG/HR 2 mls/hr IV .Q24H [facility] Rx#:[id number] Insulin Regular 100 unit 102.707 62.991 46.315 In Sodium Chloride 0.9% 100 ml @ Per Protocol IV .Q0M [facility] Rx#:[id number] Lactated Ringers 1,000 ml 482 20 @ 20 mls/hr IV .Q24H [facility] Rx#:[id number] Propofol 1,000 mg In 68.553 Empty Bag 1 bag @ Titrate IV .Q0M [facility] Rx#: [id number] Oral 620 1000 1000 Tube Feeding 40 Output: Chest Tube Drainage 10 Left pleural 0 Right Pleural 10 Drainage 10 Right Calf 10 Urine 645 740 925 Other: Voiding Method Indwelling Catheter Urinal Urinal # Voids 0 1 ABP, PAP, CO, CI - Last Documented Arterial Blood Pressure 147/60 Pulmonary Artery Pressure 34/19 Cardiac Output 9.8 Cardiac Index 4.6 - Constitutional General appearance: Present: cooperative, no acute distress, obese - EENT Eyes: Present: anicteric sclerae, EOMI, PERRLA, dentition normal, normal appearance ENT: Present: hard of hearing, NA/AT, normal oropharynx - Neck Neck: Present: normal ROM - Respiratory Respiratory: bilateral: CTA, negative: diminished, dullness, rales - Cardiovascular Rhythm: regular Heart sounds: normal: S1, S2 Abnormal Heart Sounds: Absent: systolic murmur, diastolic murmur, rub, S3 Gallop , S4 Gallop, click, other - Gastrointestinal General gastrointestinal: Present: normal bowel sounds, soft - Integumentary Integumentary: Present: decreased turgor, normal - Neurologic Neurologic: Present: CNII-XII intact - Musculoskeletal Musculoskeletal: Present: gait normal, strength equal bilaterally - Psychiatric Psychiatric: Present: A&O x's 3, appropriate affect, intact judgment & insight - Labs CBC & Chem 7: 05/14/18 04:15 05/14/18 04:15 Labs: Abnormal Lab Results - Last 24 Hours (Table) 05/13/18 05/13/18 05/13/18 Range/Units 15:55 18:06 20:05 RBC (4.30-5.90) m/uL Hgb (13.0-17.5) gm/dL Hct (39.0-53.0) % Neutrophils # (1.3-7.7) k/uL Lymphocytes # (1.0-4.8) k/uL Chloride (98-107) mmol/L BUN (9-20) mg/dL Glucose (74-99) mg/dL POC Glucose (mg/dL) 166 H 144 H 190 H (75-99) mg/dL Magnesium (1.6-2.3) mg/dL Alkaline Phosphatase (38-126) U/L Total Protein (6.3-8.2) g/dL Albumin (3.5-5.0) g/dL 05/13/18 05/14/18 05/14/18 Range/Units 22:00 00:11 01:08 RBC (4.30-5.90) m/uL Hgb (13.0-17.5) gm/dL Hct (39.0-53.0) % Neutrophils # (1.3-7.7) k/uL Lymphocytes # (1.0-4.8) k/uL Chloride (98-107) mmol/L BUN (9-20) mg/dL Glucose (74-99) mg/dL POC Glucose (mg/dL) 158 H 107 H 143 H (75-99) mg/dL Magnesium (1.6-2.3) mg/dL Alkaline Phosphatase (38-126) U/L Total Protein (6.3-8.2) g/dL Albumin (3.5-5.0) g/dL 05/14/18 05/14/18 05/14/18 Range/Units 01:35 03:12 04:15 RBC (4.30-5.90) m/uL Hgb (13.0-17.5) gm/dL Hct (39.0-53.0) % Neutrophils # (1.3-7.7) k/uL Lymphocytes # (1.0-4.8) k/uL Chloride 110 H (98-107) mmol/L BUN 24 H (9-20) mg/dL Glucose 162 H (74-99) mg/dL POC Glucose (mg/dL) 153 H 108 H (75-99) mg/dL Magnesium 2.6 H (1.6-2.3) mg/dL Alkaline Phosphatase 31 L (38-126) U/L Total Protein 5.7 L (6.3-8.2) g/dL Albumin 3.2 L (3.5-5.0) g/dL 05/14/18 05/14/18 05/14/18 Range/Units 04:15 04:16 04:50 RBC 3.39 L (4.30-5.90) m/uL Hgb 9.5 L (13.0-17.5) gm/dL Hct 29.5 L (39.0-53.0) % Neutrophils # 8.0 H (1.3-7.7) k/uL Lymphocytes # 0.6 L (1.0-4.8) k/uL Chloride (98-107) mmol/L BUN (9-20) mg/dL Glucose (74-99) mg/dL POC Glucose (mg/dL) 169 H 158 H (75-99) mg/dL Magnesium (1.6-2.3) mg/dL Alkaline Phosphatase (38-126) U/L Total Protein (6.3-8.2) g/dL Albumin (3.5-5.0) g/dL 05/14/18 05/14/18 05/14/18 Range/Units 05:55 07:10 08:12 RBC (4.30-5.90) m/uL Hgb (13.0-17.5) gm/dL Hct (39.0-53.0) % Neutrophils # (1.3-7.7) k/uL Lymphocytes # (1.0-4.8) k/uL Chloride (98-107) mmol/L BUN (9-20) mg/dL Glucose (74-99) mg/dL POC Glucose (mg/dL) 142 H 114 H 264 H (75-99) mg/dL Magnesium (1.6-2.3) mg/dL Alkaline Phosphatase (38-126) U/L Total Protein (6.3-8.2) g/dL Albumin (3.5-5.0) g/dL 05/14/18 05/14/18 05/14/18 Range/Units 10:22 11:13 13:24 RBC (4.30-5.90) m/uL Hgb (13.0-17.5) gm/dL Hct (39.0-53.0) % Neutrophils # (1.3-7.7) k/uL Lymphocytes # (1.0-4.8) k/uL Chloride (98-107) mmol/L BUN (9-20) mg/dL Glucose (74-99) mg/dL POC Glucose (mg/dL) 266 H 215 H 200 H (75-99) mg/dL Magnesium (1.6-2.3) mg/dL Alkaline Phosphatase (38-126) U/L Total Protein (6.3-8.2) g/dL Albumin (3.5-5.0) g/dL Assessment and Plan Plan: 1. Distal left main disease with triple-vessel coronary artery disease status post urgent quadruple coronary artery bypass grafting using the left internal mammary artery to the diagonal artery, then to the left anterior descending artery, reverse saphenous vein graft from the aorta to the posterior descending artery, reverse saphenous vein graft from the aorta to the high obtuse marginal artery. Continue plan per cardiothoracic surgery team. Continue aspirin 325 mg daily, Lipitor 40 mg daily, Plavix 75 mg daily, Lopressor 50 mg twice daily. Patient is on Solu-Medrol. 2. Hypertension and hypertensive cardiovascular disease. Continue Lopressor 25 mg orally twice every day. 3. Hyperlipidemia. Continue Lipitor 40 mg orally once every day. 4. Diabetes mellitus type 2. Patient is currently on insulin drip which will be transitioned to basal bolus today 05/14, currently on solumedrol and will try to compensate for it levemir at 30 units hs and 14 units premeal bf rosetta dinner. 5 acute hypomexic respiratory failure currently require high flow 02. iv diuretics. 5. DVT prophylaxis. Continue knee-high MEENA hose and SCDs. He is currently on heparin drip. 6. GI prophylaxis. Continue PPI. 7. Full code. Discharge plan: Return home with [facility]
[2018-05-15] MEDS: CLEVIDIPINE BUTYRATE 25 MG in EMPTY BAG 1 BAG IV SCH ×3 (00:06→08:31)
[2018-05-15 04:35] LABS: Basophils % (A) 0 %; Eosinophils % (A) 0 %; HCT 29.4 % (39.0-53.0); HGB 9.3 gm/dL (13.0-17.5); Lymphocytes # (A) 0.8 k/uL (1.0-4.8); Lymphocytes % (A) 8 %; MCH 28.1 pg (25.0-35.0); MCHC 31.6 g/dL (31.0-37.0); MCV 88.8 fL (80.0-100.0); Mean Platelet Volume 7.4; Monocytes # (A) 0.4 k/uL (0-1.0); Monocytes % (A) 4 %; Neutrophils # (A) 7.8 k/uL (1.3-7.7); Neutrophils % (A) 86 %; Platelet Count 202 k/uL (150-450); RBC 3.31 m/uL (4.30-5.90); RDW 14.5 % (11.5-15.5); WBC 9.1 k/uL (3.8-10.6)
[2018-05-15 04:39] LABS: Ionized Calcium 4.9 mg/dL (4.5-5.3)
[2018-05-15 04:48] LABS: ALT 26 U/L (21-72); AST 18 U/L (17-59); Albumin 3.1 g/dL (3.5-5.0); Alkaline Phosphatase 30 U/L (38-126); Blood Urea Nitrogen 35 mg/dL (9-20); Calcium 8.4 mg/dL (8.4-10.2); Carbon Dioxide 26 mmol/L (22-30); Glucose 176 mg/dL (74-99); Magnesium 2.7 mg/dL (1.6-2.3); Total Bilirubin 0.4 mg/dL (0.2-1.3); Total Protein 5.6 g/dL (6.3-8.2)
[2018-05-15 05:01] LABS: Anion Gap 7 mmol/L; Chloride 110 mmol/L (98-107); Potassium 4.8 mmol/L (3.5-5.1); Sodium 143 mmol/L (137-145)
[2018-05-15] MEDS: HYDROcodone/APAP 5-325MG 1 EACH TAB PO PRN (05:08)
--- NOTE | 2018-05-15 06:28 | XR ---
EXAMINATION TYPE: XR chest 1V portable DATE OF EXAM: 05/15/2018 HISTORY: post cardiac surgery. REFERENCE: Previous study dated 05/14/2018. FINDINGS: The patient's right internal jugular sheath is been removed. There has been a midline cevallos otomy. The heart is enlarged. There is bibasilar atelectasis. There are small, bilateral effusions. IMPRESSION: 1. CONTINUING CARDIOMEGALY. 2. BIBASILAR ATELECTASIS. 3. SMALL, BILATERAL EFFUSIONS.
[2018-05-15 07:08] LABS: Glucose,Whole Blood 170 mg/dL (75-99)
[2018-05-15] MEDS: IPRATROPIUM-ALBUTEROL 3 ML NEB INHALATION SCH ×4 (08:11→19:30)
[2018-05-15] MEDS: INSULIN ASPART 100 UNIT/ML 1 ML 10 ML VIAL SQ SCH ×3 (08:12→17:22)
[2018-05-15] MEDS: PANTOPRAZOLE 40 MG TABLET PO SCH (08:12)
[2018-05-15] MEDS: LOSARTAN 50 MG TAB PO SCH (08:12)
[2018-05-15] MEDS: ASPIRIN 325 MG TAB PO SCH (08:12)
[2018-05-15] MEDS: CLOPIDOGREL 75 MG TAB PO SCH (08:13)
[2018-05-15] MEDS: METOPROLOL TARTRATE 50 MG TAB PO SCH ×2 (08:13→20:56)
[2018-05-15] MEDS: methylPREDNISolone SOD SUCCI 40 MG/ML 1 ML VIAL IV SCH ×2 (08:13→16:06)
[2018-05-15] MEDS: HEPARIN SODIUM,PORCINE 5,000 UNIT/ML 1 ML VIAL SQ SCH ×2 (08:13→16:06)
[2018-05-15] MEDS: ATORVASTATIN 40 MG TAB PO SCH (08:13)
--- NOTE | 2018-05-15 09:13 | P.PN ---
Subjective Progress Note Date: 05/15/18 Principal diagnosis: Left main disease with severe triple vessel coronary artery disease, overall preserved left ventricular function. 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 POD #4 urgent quadruple coronary artery bypass grafting using the left internal mammary artery sequentially to the diagonal artery, then to the left anterior descending artery, reverse saphenous vein graft from the aorta to the posterior descending artery, reverse saphenous vein graft from the aorta to the high obtuse marginal artery. Endoscopic harvesting of the right greater saphenous vein. Intraoperative transesophageal echocardiogram and epi-aortic scanning. Intraoperative graft flow measurements using the [place] system. Postoperative hypoxic respiratory failure, possible acute lung injury of unknown etiology, prolonged mechanical ventilation, an unexpected outcome. The patient is currently sitting up in a recliner in no acute distress eating breakfast. Currently hemodynamically stable on no inotropes or pressors. Remains on Cleviprex for hypertension but dose is decreased from yesterday. No further hematuria. Ambulated all the way around the hallway this morning. Objective - Vital Signs Vital signs: Vital Signs Temp 98.2 F 05/15/18 04:00 Pulse 78 05/15/18 08:25 Resp 12 05/15/18 06:00 BP 143/73 05/14/18 02:00 Pulse Ox 92 L 05/15/18 08:15 Intake & Output 05/14/18 05/15/18 05/15/18 18:59 06:59 18:59 Intake Total 2252.005 354.467 67.067 Output Total 1075 850 Balance 1177.005 -495.533 67.067 Weight 107.3 kg Intake: IV 338 259 40 Lactated Ringers 1,000 ml 260 220 40 @ 20 mls/hr IV .Q24H [facility] Rx#:[id number] pressure bags 78 39 Intake, IV Titration 194.005 95.467 27.067 Amount Clevidipine Butyrate 25 93.333 95.467 27.067 mg In Empty Bag 1 bag @ 1 MG/HR 2 mls/hr IV .Q24H [facility] Rx#:[id number] Insulin Regular 100 unit 100.672 In Sodium Chloride 0.9% 100 ml @ Per Protocol IV .Q0M [facility] Rx#:[id number] Oral 1720 Output: Urine 1075 850 Other: Voiding Method Urinal Urinal # Voids 1 1 ABP, PAP, CO, CI - Last Documented Arterial Blood Pressure 142/62 Pulmonary Artery Pressure 34/19 Cardiac Output 9.8 Cardiac Index 4.6 - Constitutional General appearance: Present: cooperative, no acute distress, obese - Respiratory Details: Lungs sounds diminished bilaterally. Respirations even, nonlabored. Currently on 10 L high flow nasal cannula with oxygen saturation 91%. Able to achieve 5730-1249 mL on his incentive spirometry. Strong cough with thick yellow sputum. - Cardiovascular Details: S1, S2 present. Regular rate and rhythm, sinus rhythm on telemetry. Sternum stable. A/V epicardial pacemaker wires present, grounded. Palpable peripheral pulses bilaterally. Trace right lower extremity edema present. No calf pain or tenderness noted. Left radial arterial line present. Heart hugger in place with patient demonstrating appropriate use. Antiembolism stockings, SCDs present. - Gastrointestinal Gastrointestinal Comment(s): Abdomen soft, nontender, nondistended. Active bowel sounds present 4 quadrants. Positive flatus, negative bowel movement. Tolerating diet. - Genitourinary Genitourinary Comment(s): Patient continues to void, outcome overnight 750 mL. - Integumentary Integumentary Comment(s): Skin is warm and dry with evidence of good perfusion. Anterior chest incision well approximated and covered with dry intact dressing. Right lower extremity EVH site well approximated. - Neurologic Neurologic: Present: CNII-XII intact - Musculoskeletal Musculoskeletal: Present: gait normal, strength equal bilaterally - Psychiatric Psychiatric: Present: A&O x's 3, appropriate affect, intact judgment & insight - Allied health notes Allied health notes reviewed: nursing - Labs CBC & Chem 7: 05/15/18 04:15 05/15/18 04:15 Labs: Abnormal Lab Results - Last 24 Hours (Table) 05/14/18 05/14/18 05/14/18 Range/Units 10:22 11:13 13:24 RBC (4.30-5.90) m/uL Hgb (13.0-17.5) gm/dL Hct (39.0-53.0) % Neutrophils # (1.3-7.7) k/uL Lymphocytes # (1.0-4.8) k/uL Chloride (98-107) mmol/L BUN (9-20) mg/dL Glucose (74-99) mg/dL POC Glucose (mg/dL) 266 H 215 H 200 H (75-99) mg/dL Magnesium (1.6-2.3) mg/dL Alkaline Phosphatase (38-126) U/L Total Protein (6.3-8.2) g/dL Albumin (3.5-5.0) g/dL 05/14/18 05/14/18 05/14/18 Range/Units 15:52 17:03 20:25 RBC (4.30-5.90) m/uL Hgb (13.0-17.5) gm/dL Hct (39.0-53.0) % Neutrophils # (1.3-7.7) k/uL Lymphocytes # (1.0-4.8) k/uL Chloride (98-107) mmol/L BUN (9-20) mg/dL Glucose (74-99) mg/dL POC Glucose (mg/dL) 131 H 105 H 140 H (75-99) mg/dL Magnesium (1.6-2.3) mg/dL Alkaline Phosphatase (38-126) U/L Total Protein (6.3-8.2) g/dL Albumin (3.5-5.0) g/dL 05/15/18 05/15/18 05/15/18 Range/Units 04:15 04:15 07:07 RBC 3.31 L (4.30-5.90) m/uL Hgb 9.3 L (13.0-17.5) gm/dL Hct 29.4 L (39.0-53.0) % Neutrophils # 7.8 H (1.3-7.7) k/uL Lymphocytes # 0.8 L (1.0-4.8) k/uL Chloride 110 H (98-107) mmol/L BUN 35 H (9-20) mg/dL Glucose 176 H (74-99) mg/dL POC Glucose (mg/dL) 170 H (75-99) mg/dL Magnesium 2.7 H (1.6-2.3) mg/dL Alkaline Phosphatase 30 L (38-126) U/L Total Protein 5.6 L (6.3-8.2) g/dL Albumin 3.1 L (3.5-5.0) g/dL Microbiology - Last 24 Hours (Table) 05/14/18 14:09 Gram Stain - Preliminary Sputum - Imaging and Cardiology Chest x-ray: report reviewed, image reviewed Assessment and Plan (1) Coronary artery disease Current Visit: Yes Status: Chronic Code(s): I25.10 - ATHSCL HEART DISEASE OF [place] CORONARY ARTERY W/O ANG PCTRS SNOMED Code(s): 67290839 (2) Left main coronary artery disease Current Visit: Yes Status: Chronic Code(s): I25.10 - ATHSCL HEART DISEASE OF [place] CORONARY ARTERY W/O ANG PCTRS SNOMED Code(s): 133361375 (3) Hypertension Current Visit: Yes Status: Chronic Code(s): I10 - ESSENTIAL (PRIMARY) HYPERTENSION SNOMED Code(s): 58388690 (4) Hyperlipidemia Current Visit: Yes Status: Chronic Code(s): E78.5 - HYPERLIPIDEMIA, UNSPECIFIED SNOMED Code(s): 03417235 (5) Diabetes mellitus Current Visit: Yes Status: Chronic Code(s): E11.9 - TYPE 2 DIABETES MELLITUS WITHOUT COMPLICATIONS SNOMED Code(s): 12294624 (6) Single kidney Current Visit: Yes Status: Chronic Code(s): Z90.5 - ACQUIRED ABSENCE OF KIDNEY SNOMED Code(s): 942158775 (7) Family history of premature coronary artery disease Current Visit: Yes Status: Chronic Code(s): Z82.49 - FAMILY HX OF ISCHEM HEART DIS AND OTH DIS OF THE CIRC SYS SNOMED Code(s): 108155525 Plan: 1. Continue aspirin, statin, Plavix, losartan, beta katia therapy. Will increase beta katia therapy as tolerated. Wean Cleviprex as tolerated. Norvasc added for better blood pressure control. 2. Wean O2 as tolerated. Encourage incentive spirometry use 10 times every hour while awake. 3. Increase activity as tolerated, out of bed to chair for meals, ambulate in hallway. PT/OT/cardiac rehab following. 4. Will monitor daily labs and x-rays. Electrolyte replacement per protocol. 5. Insulin management per primary care service. 6. GI prophylaxis with Protonix, DVT prophylaxis with subcu heparin, SCDs. 7. Pain control with current medication regimen. [place] increased for better pain control No Toradol. 8. Bronchodilators, steroids per pulmonology. 9. Once stable off Cleviprex will place transfer orders for 3 S. cardiac stepdown unit. 10. More recommendations to follow pending patient progress. Time with Patient: Greater than 30
[2018-05-15] MEDS: amLODIPine 5 MG TAB PO SCH ×2 (09:29→20:56)
[2018-05-15] MEDS: HYDROcodone/APAP 7.5-325MG 1 EACH TAB PO PRN ×2 (10:11→19:10)
--- NOTE | 2018-05-15 11:54 | PN ---
PROGRESS NOTE Mr. Kumar is a gentleman with hypertension and is a kidney donor. He has bypass surgery. He is doing well, recovering nicely. Blood pressure is slightly elevated. I am recommending Norvasc 5 mg p.o. now and b.i.d. to allow us to wean off the Cleviprex. S1-S2 heard normally. Lungs reveal improved entry. Abdomen and lower exam unchanged. MMODL / IJN: [id number] /
[2018-05-15 11:56] LABS: Glucose,Whole Blood 147 mg/dL (75-99)
--- NOTE | 2018-05-15 13:21 | P.PN ---
Subjective Progress Note Date: 05/15/18 Principal diagnosis: Status post CABG postoperative day # 4 This is a 63-year-old white male, known history of hypertension, dyslipidemia, type 2 diabetes, nonsmoker, nondrinker, strong family history of premature coronary artery disease, known history of GERD and previous Sacha's fundoplication. Patient had previous history of kidney donation to his sister. Over the last couple of months, the patient has been noticing some chest discomfort, and some dyspnea on minimal exertion, which he thought initially could be related to his GERD symptoms coming back. However his symptoms where becoming more frequently, and abating with rest. Patient eventually underwent a full cardiac workup including cardiac catheterization which showed significant left main disease approximately 80% proximal LAD stenosis of 70-80% and 99% stenosis of the proximal left circumflex and 80% stenosis in the midsegment. Mid RCA was 90% stenosed. Considering the findings, patient was referred to cardiac surgery, and he is scheduled to undergo surgery tomorrow. Patient denies any previous pulmonary history, never smoked, has been quite active until the last couple of months when he has been noticing worsening symptoms of dyspnea on exertion and chest discomfort. 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 And he is usually quite active in his job physically. Chest x-ray showed some linear scarring at the right base, unchanged compared to a chest x-ray in 2016. Spirometry showed mild to moderate restriction. Reevaluated today on 05/11/2018, patient just came back to the ICU from his myocardial revascularization. Patient is now on mechanical ventilation, ventilator settings are tidal volume of 550, IMV rate of 14, FiO2 of 100%, and PEEP of 10. ABG and chest x-ray are pending. His peak airway pressure is about 28, plateau pressure is 22. Patient's O2 saturation is 100% on those vent settings. Again x-ray and ABG are pending. Patient is hemodynamically stable, on mechanical ventilation, in no distress. Reevaluated today on 05/12/2018, patient is postoperative day #1. Shortly after I saw the patient yesterday, we noted that his oxygenation has been very poor and marginal. In spite of on the percent FiO2 and a PEEP of 10, his pO2 was very low and marginal. Hence we felt that the patient developed post CABG ARDS., And I have recommended lower tidal volumes, I have also recommended higher PEEP and now the PEEP today is at 16. I have Him on the percent through the night, and titrated FiO2 gradually presently today at 50%, and the PEEP at 16. ABG on those settings about an hour ago showed a pO2 of 101 pCO2 of 40 pH of 7.42. Hence I cut down the PEEP down to 14. And I kept him at 50% FiO2. Patient remains on a relatively low tidal volume of 450, his assist control rate is at 28, and his PEEP is at 14 at present. Chest x-ray is basically unremarkable. His baseline PFT showed some minimal restriction, and again this finding of post CABG ARDS is unexpected. But clearly that's what we are dealing with at present. Discussed his condition many times with different physicians on the case including the cardiac surgeon, and we felt that it would be best to support him at present and continue low tidal volume mode of mechanical ventilation. His peak airway pressure today is 35. His plateau pressure is 25. All labs were reviewed including his electrolytes and renal profile. CBC were all noted to be normal. Patient is hemodynamically stable, and he is on propofol presently at 50 mcg/kg per hour. Reevaluated today on 05/13/2018, patient remains on mechanical ventilation, his postoperative day #2. Patient did develop post CABG ARDS, and we have managed his treatment with low tidal volume mechanical ventilation, high PEEP, steroids , bronchodilators, and I was able to taper down his FiO2 to 50% and in the last 24 hours I was able to taper down his PEEP from 14 last night to 12 to 10 and this morning is down to 8. Patient maintain his excellent O2 saturation, and we have switch him from propofol earlier this morning to Precedex. Patient was given a trial of pressure support of 8 and The PEEP at 8. Patient did extremely well, and his follow-up ABG on that mode of mechanical ventilation for one hour showed excellent oxygenation with a pO2 of 115 pCO2 of 38. PH of 7.45. Hence, and while I was at bedside, patient had weaning parameters, and updated his family members about his condition, patient was noted to be extremely appropriate, following all instructions, endotracheal tube cuff leak test was done, and I proceeded to extubating the patient. Patient was extubated to a high flow nasal cannula at 7 L/m. Reevaluating the patient back and forth while I was in the ICU, and he seemed to tolerate the extubation extremely well. All his labs, medications, chest x-ray were all reviewed. Reevaluated today on 05/14/2018, patient remains in the ICU, he was extubated yesterday, however he continues to require significant amount of oxygen via high flow nasal cannula, presently at 13 L/m. O2 saturation remains marginal in the low 90s. The chest x-ray is showing evidence of atelectasis and interstitial edema with bilateral pleural effusions, hence I recommended a small dose of Lasix 20 mg IV push to be given this morning. Patient is able to do well with incentive spirometry, he does have some productive cough, and his sputum was sent for cultures. No evidence of leukocytosis, hemoglobin is 9.5. His basic metabolic profile is normal and renal profile is normal. Creatinine is 0.88. Patient remains to have hypertension, and he is on Klonopin exit drip. Chest tubes and his Pool-Gayle catheter was discontinued yesterday Reevaluated today on 05/15/2018, remains in the ICU, still requiring high flow O2 via nasal cannula, he is presently on 10 L/m O2 flow, and his O2 saturation is in the low 90s. Clinically however the patient is feeling much better, breathing a lot easier. I reviewed the Chest x-ray showed small tiny pleural effusions and bibasilar atelectasis. I reviewed all his labs including CBC, basic metabolic profile, renal profile, liver profile, and they seem to be relatively normal. Patient remains hemodynamically stable, still requiring clever Prax for elevated blood pressure, and he was started today on oral Norvasc. At this point considering the patient is still requiring a high flow nasal cannula, I believe the patient should remain in the ICU. I did cut down the dose of his steroids yesterday, and he could be basically switch to oral prednisone tomorrow burst and taper Objective - Vital Signs Vital signs: Vital Signs Temp 98 F 05/15/18 08:00 Pulse 71 05/15/18 12:00 Resp 15 05/15/18 12:00 BP 143/73 05/15/18 11:30 Pulse Ox 94 L 05/15/18 12:00 Intake & Output 05/14/18 05/15/18 05/15/18 18:59 06:59 18:59 Intake Total 2252.005 354.467 447.067 Output Total 1075 850 Balance 1177.005 -495.533 447.067 Weight 107.3 kg Intake: IV 338 259 120 Lactated Ringers 1,000 ml 260 220 120 @ 20 mls/hr IV .Q24H [facility] Rx#:[id number] pressure bags 78 39 Intake, IV Titration 194.005 95.467 27.067 Amount Clevidipine Butyrate 25 93.333 95.467 27.067 mg In Empty Bag 1 bag @ 1 MG/HR 2 mls/hr IV .Q24H [facility] Rx#:[id number] Insulin Regular 100 unit 100.672 In Sodium Chloride 0.9% 100 ml @ Per Protocol IV .Q0M [facility] Rx#:[id number] Oral 1720 300 Output: Urine 1075 850 Other: Voiding Method Urinal Urinal Urinal # Voids 1 1 ABP, PAP, CO, CI - Last Documented Arterial Blood Pressure 168/67 Pulmonary Artery Pressure 34/19 Cardiac Output 9.8 Cardiac Index 4.6 - Exam Physical Exam: 63-year-old white male on a bedside recliner, on high flow nasal cannula, at 10 L/m. in no distress. Head: Atraumatic, normocephalic, HEENT:[Neck is supple.] [No neck masses.] [No thyromegaly.] [No JVD.] Upper lip remains a bit swollen from trauma from endotracheal tube Chest: [Symmetrical chest expansion, diminished breath sounds at the bases, no crackles, no rhonchi and no wheezes. Cardiac Exam: [Normal S1 and S2, no S3 gallop, no murmur. Positive pericardial rub.] Abdomen: [Obese, Soft, nontender, no megaly, no rebound, no guarding, normal bowel sounds.] Extremities: [No clubbing, no edema, no cyanosis. Both lower extremities are wrapped with Orion wraps.] Neurological Exam: Alert oriented 3, no gross focal neurologic deficit Psychiatric: Normal mood, affect, and mental status examination. Skin: No rashes - Labs CBC & Chem 7: 05/15/18 04:15 05/15/18 04:15 Labs: Abnormal Lab Results - Last 24 Hours (Table) 05/14/18 05/14/18 05/14/18 Range/Units 13:24 15:52 17:03 RBC (4.30-5.90) m/uL Hgb (13.0-17.5) gm/dL Hct (39.0-53.0) % Neutrophils # (1.3-7.7) k/uL Lymphocytes # (1.0-4.8) k/uL Chloride (98-107) mmol/L BUN (9-20) mg/dL Glucose (74-99) mg/dL POC Glucose (mg/dL) 200 H 131 H 105 H (75-99) mg/dL Magnesium (1.6-2.3) mg/dL Alkaline Phosphatase (38-126) U/L Total Protein (6.3-8.2) g/dL Albumin (3.5-5.0) g/dL 05/14/18 05/15/18 05/15/18 Range/Units 20:25 04:15 04:15 RBC 3.31 L (4.30-5.90) m/uL Hgb 9.3 L (13.0-17.5) gm/dL Hct 29.4 L (39.0-53.0) % Neutrophils # 7.8 H (1.3-7.7) k/uL Lymphocytes # 0.8 L (1.0-4.8) k/uL Chloride 110 H (98-107) mmol/L BUN 35 H (9-20) mg/dL Glucose 176 H (74-99) mg/dL POC Glucose (mg/dL) 140 H (75-99) mg/dL Magnesium 2.7 H (1.6-2.3) mg/dL Alkaline Phosphatase 30 L (38-126) U/L Total Protein 5.6 L (6.3-8.2) g/dL Albumin 3.1 L (3.5-5.0) g/dL 05/15/18 05/15/18 Range/Units 07:07 11:54 RBC (4.30-5.90) m/uL Hgb (13.0-17.5) gm/dL Hct (39.0-53.0) % Neutrophils # (1.3-7.7) k/uL Lymphocytes # (1.0-4.8) k/uL Chloride (98-107) mmol/L BUN (9-20) mg/dL Glucose (74-99) mg/dL POC Glucose (mg/dL) 170 H 147 H (75-99) mg/dL Magnesium (1.6-2.3) mg/dL Alkaline Phosphatase (38-126) U/L Total Protein (6.3-8.2) g/dL Albumin (3.5-5.0) g/dL Microbiology - Last 24 Hours (Table) 05/14/18 14:09 Gram Stain - Preliminary Sputum Assessment and Plan Assessment: Impression: 1 triple-vessel coronary artery disease, with left main coronary artery disease , patient is status post CABG, postoperative day # 4 patient was extubated on , still requiring high flow O2. Presently at 10 L/m, was on 13 L/m yesterday. 2 post CABG ARDS, postoperative hypoxic respiratory failure, unexpected quite severe initially, required initially high PEEP, the PEEP was as high as 16, and FiO2 at 100% initially, eventually we were able to titrate down the FiO2, to 50% , and later went down to a PEEP of 8 gradually, and I was able to extubate the patient on 05/13/2018. However he remains on a high flow nasal cannula. 3 benign essential hypertension 4 type 2 diabetes 5 single kidney, renal profile seems to be normal today to 6 family history of premature coronary artery disease. 7 postoperative hypoxic respiratory failure secondary to ARDS, unexpected and being addressed accordingly. 8 postoperative basilar atelectasis as expected, no evidence of congestive heart failure today. This is based on the chest x-ray which I reviewed myself. Recommendation: Continue high flow O2, titrate accordingly, keep O2 saturation above 90%. continue incentive spirometry, bronchodilators, switch Solu-Medrol to prednisone, and titrate over the next few days until discontinued. Ambulate the patient with O2, continue cardiac meds including aspirin statins and Plavix losartan and beta blockers. Wean level Prax as tolerated. Apparently Norvasc was added. Increase activity as tolerated. Patient will definitely require cardiac rehab. We'll continue to follow, no plans to transfer the patient out of the ICU today yet. Time with Patient: Less than 30
[2018-05-15 16:55] LABS: Glucose,Whole Blood 175 mg/dL (75-99)
--- NOTE | 2018-05-15 18:13 | P.PN ---
Subjective Progress Note Date: 05/15/18 This is a 63-year-old male one of Dr. 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, hyperlipidemia, diabetes mellitus type 2, GERD status post Sacha fundoplication, and history of premature coronary artery disease patient has been having significant effort to dyspnea with chest discomfort especially in the cold weather initially was getting better with rest and eventually did not get better after arrest he ended up seeing his primary care physician sent him for a dobutamine stress echo Dayco portion was normal however the patient the EKG portion was abnormal ended up seeing cardiology underwent left heart catheterization that showed a distal left main disease 70% as well as triple-vessel disease including the left anterior descending coronary artery with 70% left circumflex 99% and RCA 80%, he was seen in consultation by Pavel neal surgery scheduled to go for open heart surgery tomorrow morning. 05/12: On May 11, patient underwent urgent quadruple coronary artery bypass grafting using the left internal mammary artery to the diagonal artery, then to the left anterior descending artery, reverse saphenous vein graft from the aorta to the posterior descending artery, reverse saphenous vein graft from the aorta to the high obtuse marginal artery. Patient remains intubated and on mechanical ventilation with tidal volume 450, FiO2 50 and PEEP of 16. Plan is to possibly wean this afternoon. Hannon catheter is in place with good urine output. In swollen drip is in place and blood sugars are running between 121 - 148. Chest tubes, right sided Cordis in place. 05/13: Patient was extubated late this morning. He denies having any sore throat, headache. He does have edema to the lips. His urine output is running 25-40 mL per hour. He complains of feeling tired. His surgical pain is controlled. He remains on insulin drip with blood sugars running 121-194. Plan will be to continue insulin drip for another 24 hours. 05/14 patient remains in ICu, conversational dyspnea noted, has 10l o2 NC, no urinary difficulties no chest pain, patient requirs a total of 165 units of insulin x 24 hrs, patient currently on solumedrol 40q 8 hrs, and will be switched to novolog 14 units premeal starting dinner and levemir at 30 units at hs. this is half of his current requirments but solumedrol was recently decreased. appetite is marginal but ok 75 % of meal. insulin drip will be discontinued after dinner meal tonight 05/15. patient is less dypneic stsill requiring O2 10 l nc, atelectasis on cxr and small pleural effesuion, no significant edema. patient is currently ambulating had gone around the hallway with o2, pulse ox dips to 79%. no chest pain on ambulation. no light headedness, pulse ox quicklhy picks up to 94% upon resting 4-5 seconds later. Objective - Vital Signs Vital signs: Vital Signs Temp 98 F 05/15/18 08:00 Pulse 73 05/15/18 16:03 Resp 15 05/15/18 12:00 BP 143/73 05/15/18 11:30 Pulse Ox 94 L 05/15/18 12:00 Intake & Output 05/14/18 05/15/18 05/15/18 18:59 06:59 18:59 Intake Total 2252.005 354.467 447.067 Output Total 1075 850 Balance 1177.005 -495.533 447.067 Weight 107.3 kg Intake: IV 338 259 120 Lactated Ringers 1,000 ml 260 220 120 @ 20 mls/hr IV .Q24H SEJAL Rx#:[id number] pressure bags 78 39 Intake, IV Titration 194.005 95.467 27.067 Amount Clevidipine Butyrate 25 93.333 95.467 27.067 mg In Empty Bag 1 bag @ 1 MG/HR 2 mls/hr IV .Q24H SEJAL Rx#:[id number] Insulin Regular 100 unit 100.672 In Sodium Chloride 0.9% 100 ml @ Per Protocol IV .Q0M SEJAL Rx#:[id number] Oral 1720 300 Output: Urine 1075 850 Other: Voiding Method Urinal Urinal Urinal # Voids 1 1 ABP, PAP, CO, CI - Last Documented Arterial Blood Pressure 168/67 Pulmonary Artery Pressure 34/19 Cardiac Output 9.8 Cardiac Index 4.6 - Constitutional General appearance: Present: cooperative, no acute distress, obese - EENT Eyes: Present: anicteric sclerae, EOMI, dentition normal ENT: Present: NA/AT, normal oropharynx - Neck Neck: Present: normal ROM - Respiratory Details: [id number] requiring o2 10L nc Respiratory: bilateral: CTA, negative: diminished, dullness, rales - Cardiovascular Rhythm: regular Heart sounds: normal: S1, S2 Abnormal Heart Sounds: Absent: systolic murmur, diastolic murmur, rub, S3 Gallop , S4 Gallop, click, other - Gastrointestinal General gastrointestinal: Present: normal bowel sounds, soft - Integumentary Integumentary: Present: normal, normal turgor - Neurologic Neurologic: Present: CNII-XII intact - Musculoskeletal Musculoskeletal: Present: gait normal, strength equal bilaterally - Psychiatric Psychiatric: Present: A&O x's 3, appropriate affect - Labs CBC & Chem 7: 05/15/18 04:15 05/15/18 04:15 Labs: Abnormal Lab Results - Last 24 Hours (Table) 05/14/18 05/14/18 05/15/18 Range/Units 17:03 20:25 04:15 RBC 3.31 L (4.30-5.90) m/uL Hgb 9.3 L (13.0-17.5) gm/dL Hct 29.4 L (39.0-53.0) % Neutrophils # 7.8 H (1.3-7.7) k/uL Lymphocytes # 0.8 L (1.0-4.8) k/uL Chloride (98-107) mmol/L BUN (9-20) mg/dL Glucose (74-99) mg/dL POC Glucose (mg/dL) 105 H 140 H (75-99) mg/dL Magnesium (1.6-2.3) mg/dL Alkaline Phosphatase (38-126) U/L Total Protein (6.3-8.2) g/dL Albumin (3.5-5.0) g/dL 05/15/18 05/15/18 05/15/18 Range/Units 04:15 07:07 11:54 RBC (4.30-5.90) m/uL Hgb (13.0-17.5) gm/dL Hct (39.0-53.0) % Neutrophils # (1.3-7.7) k/uL Lymphocytes # (1.0-4.8) k/uL Chloride 110 H (98-107) mmol/L BUN 35 H (9-20) mg/dL Glucose 176 H (74-99) mg/dL POC Glucose (mg/dL) 170 H 147 H (75-99) mg/dL Magnesium 2.7 H (1.6-2.3) mg/dL Alkaline Phosphatase 30 L (38-126) U/L Total Protein 5.6 L (6.3-8.2) g/dL Albumin 3.1 L (3.5-5.0) g/dL Microbiology - Last 24 Hours (Table) 05/14/18 14:09 Gram Stain - Preliminary Sputum Assessment and Plan Plan: 1. POD # 4Distal left main disease with triple-vessel coronary artery disease status post urgent quadruple coronary artery bypass grafting using the left internal mammary artery to the diagonal artery, then to the left anterior descending artery, reverse saphenous vein graft from the aorta to the posterior descending artery, reverse saphenous vein graft from the aorta to the high obtuse marginal artery. on 05/11/18. Continue plan per cardiothoracic surgery team. Continue aspirin 325 mg daily, Lipitor 40 mg daily, Plavix 75 mg daily, Lopressor 50 mg twice daily. Patient is on Solu-Medrol. 2. Hypertension and hypertensive cardiovascular disease. Continue Lopressor 25 mg orally twice every day. 3. Hyperlipidemia. Continue Lipitor 40 mg orally once every day. 4. Diabetes mellitus type 2. Patient is currently on insulin drip which will be transitioned to basal bolus today 05/14, currently on solumedrol and will try to compensate for it levemir at 30 units hs and 14 units premeal bf rosetta dinner. 5 acute hypomexic respiratory failure currently require high flow 02. iv diuretics. continue on incentive spirometry 5. DVT prophylaxis. Continue knee-high MEENA hose and SCDs. He is currently on heparin drip. 6. GI prophylaxis. Continue PPI. 7. Full code. Discharge plan: Return home with [facility]
[2018-05-15 20:27] LABS: Glucose,Whole Blood 248 mg/dL (75-99)
[2018-05-15] MEDS: SENNOSIDES-DOCUSATE SODIUM 1 EACH TAB PO SCH (20:57)
[2018-05-15] MEDS: INSULIN DETEMIR 100 UNIT/ML 10 ML VIAL SQ SCH (20:57)
[2018-05-15] MEDS: MELATONIN 3 MG TABLET PO SCH (20:57)
[2018-05-15] MEDS ORDERED: INSULIN ASPART 100 UNIT/ML 1 ML 10 ML VIAL SQ ONE (21:21)
[2018-05-16] MEDS: HEPARIN SODIUM,PORCINE 5,000 UNIT/ML 1 ML VIAL SQ SCH ×3 (00:01→16:39)
[2018-05-16] MEDS: HYDROcodone/APAP 7.5-325MG 1 EACH TAB PO PRN ×3 (05:01→18:17)
[2018-05-16 05:55] LABS: Basophils % (A) 0 %; Eosinophils % (A) 0 %; HCT 29.8 % (39.0-53.0); HGB 9.6 gm/dL (13.0-17.5); Lymphocytes # (A) 0.9 k/uL (1.0-4.8); Lymphocytes % (A) 12 %; MCH 28.6 pg (25.0-35.0); MCHC 32.2 g/dL (31.0-37.0); MCV 88.9 fL (80.0-100.0); Mean Platelet Volume 7.4; Monocytes # (A) 0.5 k/uL (0-1.0); Monocytes % (A) 7 %; Neutrophils # (A) 6.3 k/uL (1.3-7.7); Neutrophils % (A) 80 %; Platelet Count 212 k/uL (150-450); RBC 3.35 m/uL (4.30-5.90); RDW 14.6 % (11.5-15.5); WBC 7.8 k/uL (3.8-10.6)
[2018-05-16 06:18] LABS: ALT 40 U/L (21-72); AST 27 U/L (17-59); Albumin 3.2 g/dL (3.5-5.0); Alkaline Phosphatase 40 U/L (38-126); Anion Gap 6 mmol/L; Blood Urea Nitrogen 34 mg/dL (9-20); Calcium 8.5 mg/dL (8.4-10.2); Carbon Dioxide 28 mmol/L (22-30); Chloride 109 mmol/L (98-107); Glucose 141 mg/dL (74-99); Potassium 4.8 mmol/L (3.5-5.1); Sodium 143 mmol/L (137-145); Total Bilirubin 0.3 mg/dL (0.2-1.3); Total Protein 5.7 g/dL (6.3-8.2)
[2018-05-16 07:03] LABS: Glucose,Whole Blood 151 mg/dL (75-99)
[2018-05-16] MEDS: INSULIN ASPART 100 UNIT/ML 1 ML 10 ML VIAL SQ SCH ×2 (07:09→12:16)
[2018-05-16] MEDS: PANTOPRAZOLE 40 MG TABLET PO SCH (07:10)
[2018-05-16] MEDS: IPRATROPIUM-ALBUTEROL 3 ML NEB INHALATION SCH ×4 (07:21→20:47)
[2018-05-16] MEDS: METOPROLOL TARTRATE 50 MG TAB PO SCH ×2 (08:26→21:07)
[2018-05-16] MEDS: ATORVASTATIN 40 MG TAB PO SCH (08:26)
[2018-05-16] MEDS: amLODIPine 5 MG TAB PO SCH ×2 (08:26→21:08)
[2018-05-16] MEDS: ASPIRIN 325 MG TAB PO SCH (08:26)
[2018-05-16] MEDS: CLOPIDOGREL 75 MG TAB PO SCH (08:26)
[2018-05-16] MEDS: LOSARTAN 50 MG TAB PO SCH (08:26)
[2018-05-16] MEDS: methylPREDNISolone SOD SUCCI 40 MG/ML 1 ML VIAL IV SCH ×2 (08:26)
[2018-05-16] MEDS ORDERED: FUROSEMIDE 10 MG/ML 2 ML VIAL IV STA (08:47)
--- NOTE | 2018-05-16 09:07 | P.PN ---
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 POD #5 urgent quadruple coronary artery bypass grafting using the left internal mammary artery sequentially to the diagonal artery, then to the left anterior descending coronary artery, a reverse greater saphenous vein graft from the aorta to the posterior descending artery, a reverse greater saphenous vein graft from the aorta to the high obtuse marginal artery. Endoscopic harvesting of the right greater saphenous vein. Intraoperative transesophageal echocardiogram, epi-aortic scanning and intraoperative graft flow measurements using the [employer] system. Postoperative hypoxic respiratory failure, possible acute lung injury of unknown etiology, prolonged mechanical ventilation, an unexpected outcome. The patient is currently sitting up to the bedside chair. He is in no acute distress. He denies any complaints of pain or shortness of breath at this time. He is hemodynamically stable. He reports that he ambulated in the intensive care unit already and completed the [place] in the unit. Currently on 2 L nasal cannula oxygen saturations 95% and he is achieving 1800 mL on his incentive spirometry with encouragement. Objective - Vital Signs Vital signs: Vital Signs Temp 97.8 F 05/16/18 04:00 Pulse 67 05/16/18 07:29 Resp 12 05/16/18 07:00 BP 153/84 05/16/18 07:00 Pulse Ox 91 L 05/16/18 07:00 Intake & Output 05/15/18 05/16/18 05/16/18 18:59 06:59 18:59 Intake Total 1017.067 550 390 Output Total 700 750 Balance 317.067 -200 390 Weight 106.4 kg Intake: IV 240 Lactated Ringers 1,000 ml 240 @ 20 mls/hr IV .Q24H SEJAL Rx#:[id number] Intake, IV Titration 27.067 50 Amount Clevidipine Butyrate 25 27.067 50 mg In Empty Bag 1 bag @ 1 MG/HR 2 mls/hr IV .Q24H SEJAL Rx#:[id number] Oral 750 500 390 Output: Urine 700 750 Other: Voiding Method Urinal Toilet Toilet Urinal Urinal # Voids 1 1 # Bowel Movements 1 ABP, PAP, CO, CI - Last Documented Arterial Blood Pressure 164/67 Pulmonary Artery Pressure 34/19 Cardiac Output 9.8 Cardiac Index 4.6 - Constitutional General appearance: Present: cooperative, no acute distress, obese - Respiratory Details: Lungs sounds essentially clear throughout, diminished to his bilateral bases. Respirations are symmetrical and nonlabored. Oxygen saturation are 95% on 2 L nasal cannula. Achieving 1800 mL on his incentive spirometry with encouragement. - Cardiovascular Details: Regular rhythm and rate. S1 and S2 present, negative for S3, gallop or murmur. Sternum is stable. Bedside telemetry showing normal sinus rhythm heart rate 64. Atrial and ventricular epicardial pacemaker wires in place and grounded. Heart hugger is in place and he is demonstrating appropriate use. Knee-high MEENA hose and sequential compression devices in place to his bilateral lower extremities. Trace peripheral edema to his bilateral lower extremities. - Gastrointestinal Gastrointestinal Comment(s): Abdomen is soft, nontender and nondistended. Active bowel sounds to all 4 abdominal quadrants. Bowel movement this a.m. Tolerating oral intake. - Genitourinary Genitourinary Comment(s): Voiding clear yellow urine. 550 mL output in the last 8 hours. - Integumentary Integumentary Comment(s): Skin is warm and dry. No clubbing or cyanosis present. Midline sternal incision clean, dry and approximated. No drainage or redness present. Gauze dressing clean and dry. Right lower extremity EVH sites clean, dry and approximated. No drainage or redness present. - Neurologic Neurologic: Present: CNII-XII intact - Musculoskeletal Musculoskeletal: Present: gait normal, strength equal bilaterally - Psychiatric Psychiatric: Present: A&O x's 3, appropriate affect, intact judgment & insight - Allied health notes Allied health notes reviewed: nursing - Labs CBC & Chem 7: 05/16/18 05:26 05/16/18 05:26 Labs: Abnormal Lab Results - Last 24 Hours (Table) 05/15/18 05/15/18 05/15/18 Range/Units 11:54 16:54 20:24 RBC (4.30-5.90) m/uL Hgb (13.0-17.5) gm/dL Hct (39.0-53.0) % Lymphocytes # (1.0-4.8) k/uL Chloride (98-107) mmol/L BUN (9-20) mg/dL Glucose (74-99) mg/dL POC Glucose (mg/dL) 147 H 175 H 248 H (75-99) mg/dL Magnesium (1.6-2.3) mg/dL Total Protein (6.3-8.2) g/dL Albumin (3.5-5.0) g/dL 05/16/18 05/16/18 05/16/18 Range/Units 05:26 05:26 07:02 RBC 3.35 L (4.30-5.90) m/uL Hgb 9.6 L (13.0-17.5) gm/dL Hct 29.8 L (39.0-53.0) % Lymphocytes # 0.9 L (1.0-4.8) k/uL Chloride 109 H (98-107) mmol/L BUN 34 H (9-20) mg/dL Glucose 141 H (74-99) mg/dL POC Glucose (mg/dL) 151 H (75-99) mg/dL Magnesium 3.0 H (1.6-2.3) mg/dL Total Protein 5.7 L (6.3-8.2) g/dL Albumin 3.2 L (3.5-5.0) g/dL Microbiology - Last 24 Hours (Table) 05/14/18 14:09 Gram Stain - Preliminary Sputum - Imaging and Cardiology Chest x-ray: report reviewed, image reviewed Assessment and Plan (1) GERD (gastroesophageal reflux disease) Current Visit: Yes Status: Acute Code(s): K21.9 - GASTRO-ESOPHAGEAL REFLUX DISEASE WITHOUT ESOPHAGITIS SNOMED Code(s): 106171073 (2) Coronary artery disease Current Visit: Yes Status: Chronic Code(s): I25.10 - ATHSCL HEART DISEASE OF PLATIN[place] CORONARY ARTERY W/O ANG PCTRS SNOMED Code(s): 19365211 (3) Diabetes mellitus Current Visit: Yes Status: Chronic Code(s): E11.9 - TYPE 2 DIABETES MELLITUS WITHOUT COMPLICATIONS SNOMED Code(s): 24319009 (4) Family history of premature coronary artery disease Current Visit: Yes Status: Chronic Code(s): Z82.49 - FAMILY HX OF ISCHEM HEART DIS AND OTH DIS OF THE CIRC SYS SNOMED Code(s): 722896514 (5) Hyperlipidemia Current Visit: Yes Status: Chronic Code(s): E78.5 - HYPERLIPIDEMIA, UNSPECIFIED SNOMED Code(s): 44931582 (6) Hypertension Current Visit: Yes Status: Chronic Code(s): I10 - ESSENTIAL (PRIMARY) HYPERTENSION SNOMED Code(s): 95526919 (7) Left main coronary artery disease Current Visit: Yes Status: Chronic Code(s): I25.10 - ATHSCL HEART DISEASE OF PLATINUM CORONARY ARTERY W/O ANG PCTRS SNOMED Code(s): 860269129 (8) Single kidney Current Visit: Yes Status: Chronic Code(s): Z90.5 - ACQUIRED ABSENCE OF KIDNEY SNOMED Code(s): 283591457 Plan: 1. Continue aspirin, statin, Plavix, Cozaar, Norvasc and beta katia. Will increase beta katia as tolerated. 2. Wean O2 as tolerated. Encourage incentive spirometry use 10 times every hour while awake. 3. Increase activity as tolerated, out of bed to chair for meals, ambulate in hallway as tolerated. PT/OT/cardiac rehab following. 4. Will monitor daily labs and chest x-rays. Electrolyte replacement per protocol. 5. Insulin management per primary care service. 6. GI prophylaxis with Protonix, DVT prophylaxis with subcu heparin, SCDs. 7. Pain control with current medication regimen. 8. Bronchodilators, steroids per pulmonology. Discontinue Solu-Medrol. 9. Lasix 20 mg IV 1 now. 10. We will atrial and ventricular epicardial pacemaker wires today, bedrest for 1 hour post pacemaker wire removal. 11. Transferred to [address] [place] [address] cardiac stepdown unit today. 12. More recommendations to follow pending patient progress. Anticipate discharge home within the next 24 hours. Time with Patient: Greater than 30
--- NOTE | 2018-05-16 09:21 | XR ---
EXAMINATION TYPE: XR chest 1V portable DATE OF EXAM: 05/16/2018 COMPARISON: 05/15/2018 HISTORY: Postop CABG TECHNIQUE: Single frontal view of the chest is obtained. FINDINGS: Bilateral consolidation and tiny effusion stable. Heart size stable. Postsurgical changes noted. No pneumothorax. IMPRESSION: Stable bilateral consolidation and tiny effusion.
--- NOTE | 2018-05-16 09:45 | P.PN ---
Subjective Progress Note Date: 05/16/18 Principal diagnosis: Coronary artery bypass grafting, postop day 5 This is a 63-year-old white male, known history of hypertension, dyslipidemia, type 2 diabetes, nonsmoker, nondrinker, strong family history of premature coronary artery disease, known history of GERD and previous Sacha's fundoplication. Patient had previous history of kidney donation to his sister. Over the last couple of months, the patient has been noticing some chest discomfort, and some dyspnea on minimal exertion, which he thought initially could be related to his GERD symptoms coming back. However his symptoms where becoming more frequently, and abating with rest. Patient eventually underwent a full cardiac workup including cardiac catheterization which showed significant left main disease approximately 80% proximal LAD stenosis of 70-80% and 99% stenosis of the proximal left circumflex and 80% stenosis in the midsegment. Mid RCA was 90% stenosed. Considering the findings, patient was referred to cardiac surgery, and he is scheduled to undergo surgery tomorrow. Patient denies any previous pulmonary history, never smoked, has been quite active until the last couple of months when he has been noticing worsening symptoms of dyspnea on exertion and chest discomfort. 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 And he is usually quite active in his job physically. Chest x-ray showed some linear scarring at the right base, unchanged compared to a chest x-ray in 2016. Spirometry showed mild to moderate restriction. Reevaluated today on 05/11/2018, patient just came back to the ICU from his myocardial revascularization. Patient is now on mechanical ventilation, ventilator settings are tidal volume of 550, IMV rate of 14, FiO2 of 100%, and PEEP of 10. ABG and chest x-ray are pending. His peak airway pressure is about 28, plateau pressure is 22. Patient's O2 saturation is 100% on those vent settings. Again x-ray and ABG are pending. Patient is hemodynamically stable, on mechanical ventilation, in no distress. Reevaluated today on 05/12/2018, patient is postoperative day #1. Shortly after I saw the patient yesterday, we noted that his oxygenation has been very poor and marginal. In spite of on the percent FiO2 and a PEEP of 10, his pO2 was very low and marginal. Hence we felt that the patient developed post CABG ARDS., And I have recommended lower tidal volumes, I have also recommended higher PEEP and now the PEEP today is at 16. I have Him on the percent through the night, and titrated FiO2 gradually presently today at 50%, and the PEEP at 16. ABG on those settings about an hour ago showed a pO2 of 101 pCO2 of 40 pH of 7.42. Hence I cut down the PEEP down to 14. And I kept him at 50% FiO2. Patient remains on a relatively low tidal volume of 450, his assist control rate is at 28, and his PEEP is at 14 at present. Chest x-ray is basically unremarkable. His baseline PFT showed some minimal restriction, and again this finding of post CABG ARDS is unexpected. But clearly that's what we are dealing with at present. Discussed his condition many times with different physicians on the case including the cardiac surgeon, and we felt that it would be best to support him at present and continue low tidal volume mode of mechanical ventilation. His peak airway pressure today is 35. His plateau pressure is 25. All labs were reviewed including his electrolytes and renal profile. CBC were all noted to be normal. Patient is hemodynamically stable, and he is on propofol presently at 50 mcg/kg per hour. Reevaluated today on 05/13/2018, patient remains on mechanical ventilation, his postoperative day #2. Patient did develop post CABG ARDS, and we have managed his treatment with low tidal volume mechanical ventilation, high PEEP, steroids , bronchodilators, and I was able to taper down his FiO2 to 50% and in the last 24 hours I was able to taper down his PEEP from 14 last night to 12 to 10 and this morning is down to 8. Patient maintain his excellent O2 saturation, and we have switch him from propofol earlier this morning to Precedex. Patient was given a trial of pressure support of 8 and The PEEP at 8. Patient did extremely well, and his follow-up ABG on that mode of mechanical ventilation for one hour showed excellent oxygenation with a pO2 of 115 pCO2 of 38. PH of 7.45. Hence, and while I was at bedside, patient had weaning parameters, and updated his family members about his condition, patient was noted to be extremely appropriate, following all instructions, endotracheal tube cuff leak test was done, and I proceeded to extubating the patient. Patient was extubated to a high flow nasal cannula at 7 L/m. Reevaluating the patient back and forth while I was in the ICU, and he seemed to tolerate the extubation extremely well. All his labs, medications, chest x-ray were all reviewed. Reevaluated today on 05/14/2018, patient remains in the ICU, he was extubated yesterday, however he continues to require significant amount of oxygen via high flow nasal cannula, presently at 13 L/m. O2 saturation remains marginal in the low 90s. The chest x-ray is showing evidence of atelectasis and interstitial edema with bilateral pleural effusions, hence I recommended a small dose of Lasix 20 mg IV push to be given this morning. Patient is able to do well with incentive spirometry, he does have some productive cough, and his sputum was sent for cultures. No evidence of leukocytosis, hemoglobin is 9.5. His basic metabolic profile is normal and renal profile is normal. Creatinine is 0.88. Patient remains to have hypertension, and he is on Klonopin exit drip. Chest tubes and his Horatio-Gayle catheter was discontinued yesterday Reevaluated today on 05/15/2018, remains in the ICU, still requiring high flow O2 via nasal cannula, he is presently on 10 L/m O2 flow, and his O2 saturation is in the low 90s. Clinically however the patient is feeling much better, breathing a lot easier. I reviewed the Chest x-ray showed small tiny pleural effusions and bibasilar atelectasis. I reviewed all his labs including CBC, basic metabolic profile, renal profile, liver profile, and they seem to be relatively normal. Patient remains hemodynamically stable, still requiring clever Prax for elevated blood pressure, and he was started today on oral Norvasc. At this point considering the patient is still requiring a high flow nasal cannula, I believe the patient should remain in the ICU. I did cut down the dose of his steroids yesterday, and he could be basically switch to oral prednisone tomorrow burst and taper On 05/16/2018 patient seen again in the intensive care unit. He is awake and alert, sitting up in the recliner, in no acute distress, he is currently on 2 L per nasal cannula, and his pulse ox is 91-92%, denies any respiratory distress, is working on his incentive spirometry, he diabetes mellitus postop day 5 status post four-vessel bypass grafting. Today's chest x-ray has been reviewed by Dr. Orr, small bilateral effusions were noted, with a pseudotumor in the right lung. No IV drips, no IVs. His labs have been reviewed, the CBC 7.8, hemoglobin is 9.6, sodium is 143, potassium is 4.8, chloride is 109, BUN is 34 creatinine 0.89. Lung sounds were clear, diminished at the bases, no wheezing no rhonchi noted, we can stop the IV Solu-Medrol. Sinus rhythm on the monitor with a controlled rate, hemodynamically stable. Objective - Vital Signs Vital signs: Vital Signs Temp 97.8 F 05/16/18 04:00 Pulse 67 05/16/18 07:29 Resp 12 05/16/18 07:00 BP 153/84 05/16/18 07:00 Pulse Ox 91 L 05/16/18 07:00 Intake & Output 05/15/18 05/16/18 05/16/18 18:59 06:59 18:59 Intake Total 1017.067 550 390 Output Total 700 750 Balance 317.067 -200 390 Weight 106.4 kg Intake: IV 240 Lactated Ringers 1,000 ml 240 @ 20 mls/hr IV .Q24H SEJAL Rx#:[id number] Intake, IV Titration 27.067 50 Amount Clevidipine Butyrate 25 27.067 50 mg In Empty Bag 1 bag @ 1 MG/HR 2 mls/hr IV .Q24H SEJAL Rx#:[id number] Oral 750 500 390 Output: Urine 700 750 Other: Voiding Method Urinal Toilet Toilet Urinal Urinal # Voids 1 1 # Bowel Movements 1 ABP, PAP, CO, CI - Last Documented Arterial Blood Pressure 164/67 Pulmonary Artery Pressure 34/19 Cardiac Output 9.8 Cardiac Index 4.6 - Exam Physical Exam: 63-year-old white male on a bedside recliner, on high flow nasal cannula, at 10 L/m. in no distress. Head: Atraumatic, normocephalic, HEENT:[Neck is supple.] [No neck masses.] [No thyromegaly.] [No JVD.] Upper lip remains a bit swollen from trauma from endotracheal tube Chest: [Symmetrical chest expansion, diminished breath sounds at the bases, no crackles, no rhonchi and no wheezes. Cardiac Exam: [Normal S1 and S2, no S3 gallop, no murmur. Positive pericardial rub.] Abdomen: [Obese, Soft, nontender, no megaly, no rebound, no guarding, normal bowel sounds.] Extremities: [No clubbing, no edema, no cyanosis. Both lower extremities are wrapped with Orion wraps.] Neurological Exam: Alert oriented 3, no gross focal neurologic deficit Psychiatric: Normal mood, affect, and mental status examination. Skin: No rashes - Labs CBC & Chem 7: 05/16/18 05:26 05/16/18 05:26 Labs: Abnormal Lab Results - Last 24 Hours (Table) 05/15/18 05/15/18 05/15/18 Range/Units 11:54 16:54 20:24 RBC (4.30-5.90) m/uL Hgb (13.0-17.5) gm/dL Hct (39.0-53.0) % Lymphocytes # (1.0-4.8) k/uL Chloride (98-107) mmol/L BUN (9-20) mg/dL Glucose (74-99) mg/dL POC Glucose (mg/dL) 147 H 175 H 248 H (75-99) mg/dL Magnesium (1.6-2.3) mg/dL Total Protein (6.3-8.2) g/dL Albumin (3.5-5.0) g/dL 05/16/1818 05/16/18 Range/Units 05:26 05:26 07:02 RBC 3.35 L (4.30-5.90) m/uL Hgb 9.6 L (13.0-17.5) gm/dL Hct 29.8 L (39.0-53.0) % Lymphocytes # 0.9 L (1.0-4.8) k/uL Chloride 109 H (98-107) mmol/L BUN 34 H (9-20) mg/dL Glucose 141 H (74-99) mg/dL POC Glucose (mg/dL) 151 H (75-99) mg/dL Magnesium 3.0 H (1.6-2.3) mg/dL Total Protein 5.7 L (6.3-8.2) g/dL Albumin 3.2 L (3.5-5.0) g/dL Microbiology - Last 24 Hours (Table) 05/14/18 14:09 Gram Stain - Preliminary Sputum Assessment and Plan Plan: 1 triple-vessel coronary artery disease, with left main coronary artery disease , patient is status post CABG, postoperative day # 4 patient was extubated on , still requiring high flow O2. Presently at 2 L/m, was on 13 L/m yesterday. 2 post CABG ARDS, postoperative hypoxic respiratory failure, unexpected quite severe initially, required initially high PEEP, the PEEP was as high as 16, and FiO2 at 100% initially, eventually we were able to titrate down the FiO2, to 50% , and later went down to a PEEP of 8 gradually, and I was able to extubate the patient on 05/13/2018. However he remains on a high flow nasal cannula. 3 benign essential hypertension 4 type 2 diabetes 5 single kidney, renal profile seems to be normal today to 6 family history of premature coronary artery disease. 7 postoperative hypoxic respiratory failure secondary to ARDS, unexpected and being addressed accordingly. 8 postoperative basilar atelectasis as expected, no evidence of congestive heart failure today. This is based on the chest x-ray which I reviewed myself. Plan: Continue encouraging deep breathing and coughing. Patient is stable, no wheezing appreciated on today's exam, we will discontinue the IV Solu-Medrol. His chest x-ray has been reviewed by Dr. Reyes, showed small pleural effusions bilaterally, and a pseudotumor in the right lung. O2 is down to 2 L per nasal cannula, sinus rhythm on a monitor, hemodynamically stable. Anticipate discharge home in the next 24 hours. I performed a history & physical examination of the patient and discussed their management with my nurse practitioner, Omaira Mcmanus. I reviewed the nurse practitioner's note and agree with the documented findings and plan of care. Lung sounds are clear. The findings and the impression was discussed with the patient. I attest to the documentation by the nurse practitioner. Time with Patient: Less than 30
[2018-05-16 11:08] VITALS: BMI 33.6
[2018-05-16 12:01] LABS: Glucose,Whole Blood 130 mg/dL (75-99)
[2018-05-16 17:16] LABS: Glucose,Whole Blood 191 mg/dL (75-99)
[2018-05-16] MEDS ORDERED: INSULIN ASPART 100 UNIT/ML 1 ML 10 ML VIAL SQ SCH (17:30)
[2018-05-16 20:39] LABS: Glucose,Whole Blood 244 mg/dL (75-99)
--- NOTE | 2018-05-16 21:04 | PN ---
PROGRESS NOTE Mr. Kumar is status post bypass surgery. He is doing well, maintaining sinus rhythm, doing well on incentive spirometry. S1-S2 heard normally. Lungs reveal decent air entry. Abdomen and lower extremity exam unchanged. Plan is continue current medications, increase activity and move him to telemetry. MMODL / IJN: [id number] /
[2018-05-16] MEDS: SENNOSIDES-DOCUSATE SODIUM 1 EACH TAB PO SCH (21:07)
[2018-05-16] MEDS: INSULIN DETEMIR 100 UNIT/ML 10 ML VIAL SQ SCH (21:08)
[2018-05-16] MEDS: MELATONIN 3 MG TABLET PO SCH (21:57)
[2018-05-17] MEDS: HEPARIN SODIUM,PORCINE 5,000 UNIT/ML 1 ML VIAL SQ SCH ×4 (00:48→23:16)
[2018-05-17 05:29] LABS: Basophils % (A) 0 %; Eosinophils % (A) 0 %; HGB 9.9 gm/dL (13.0-17.5); Lymphocytes # (A) 2.1 k/uL (1.0-4.8); Lymphocytes % (A) 25 %; MCH 28.4 pg (25.0-35.0); MCHC 32.1 g/dL (31.0-37.0); MCV 88.3 fL (80.0-100.0); Mean Platelet Volume 7.3; Monocytes # (A) 0.7 k/uL (0-1.0); Monocytes % (A) 8 %; Neutrophils # (A) 5.5 k/uL (1.3-7.7); Neutrophils % (A) 66 %; Platelet Count 258 k/uL (150-450); RBC 3.51 m/uL (4.30-5.90); RDW 14.3 % (11.5-15.5); WBC 8.4 k/uL (3.8-10.6)
[2018-05-17 05:37] LABS: Anion Gap 5 mmol/L; Blood Urea Nitrogen 33 mg/dL (9-20); Calcium 8.7 mg/dL (8.4-10.2); Carbon Dioxide 30 mmol/L (22-30); Chloride 105 mmol/L (98-107); Glucose 91 mg/dL (74-99); Magnesium 2.7 mg/dL (1.6-2.3); Phosphorus 3.4 mg/dL (2.5-4.5); Sodium 140 mmol/L (137-145)
[2018-05-17 06:54] LABS: Glucose,Whole Blood 74 mg/dL (75-99)
[2018-05-17] MEDS: INSULIN ASPART 100 UNIT/ML 1 ML 10 ML VIAL SQ SCH ×3 (07:03→17:01)
[2018-05-17 07:19] LABS: Glucose,Whole Blood 100 mg/dL (75-99)
[2018-05-17] MEDS: IPRATROPIUM-ALBUTEROL 3 ML NEB INHALATION SCH ×4 (07:30→19:02)
[2018-05-17] MEDS ORDERED: FUROSEMIDE 10 MG/ML 2 ML VIAL IV ONE (08:46)
--- NOTE | 2018-05-17 08:58 | P.PN ---
Subjective Progress Note Date: 05/17/18 Principal diagnosis: Left main disease with severe triple vessel coronary artery disease, overall preserved left ventricular function. 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 POD #6 urgent quadruple coronary artery bypass grafting using the left internal mammary artery sequentially to the diagonal artery, then to the left anterior descending artery, reverse saphenous vein graft from the aorta to the posterior descending artery, reverse saphenous vein graft from the aorta to the high obtuse marginal artery. Endoscopic harvesting of the right greater saphenous vein. Intraoperative transesophageal echocardiogram and epi-aortic scanning. Intraoperative graft flow measurements using the [employer] system. Postoperative hypoxic respiratory failure, possible acute lung injury of unknown etiology, prolonged mechanical ventilation, an unexpected outcome. The patient is currently sitting up in bed in no acute distress eating breakfast. Currently hemodynamically stable. States pain is well controlled on current medication regimen, denies shortness of breath. Patient has been ambulating around the hallway. Oxygen has been weaned down. No new complaints. Transfer orders were placed yesterday to send patient to [address] [place] [address] cardiac stepdown unit, however there is no bed availability at this time. Objective - Vital Signs Vital signs: Vital Signs Temp 97.6 F 05/17/18 04:00 Pulse 88 05/17/18 07:44 Resp 12 05/17/18 04:00 BP 157/80 05/17/18 04:00 Pulse Ox 92 L 05/17/18 07:32 Intake & Output 05/16/18 05/17/18 05/17/18 18:59 06:59 18:59 Intake Total 490 Output Total 1650 400 Balance -1160 -400 Weight 106.4 kg 106.1 kg Intake: Oral 490 Output: Urine 1650 400 Other: Voiding Method Toilet Urinal # Voids 2 ABP, PAP, CO, CI - Last Documented Arterial Blood Pressure 164/67 Pulmonary Artery Pressure 34/19 Cardiac Output 9.8 Cardiac Index 4.6 - Constitutional General appearance: Present: cooperative, no acute distress, obese - Respiratory Details: Lungs sounds diminished bilaterally. Respirations even, nonlabored. Currently on room air with oxygen saturation 91%. Able to achieve 1750 mL on his incentive spirometry. Strong cough with thick yellow sputum. - Cardiovascular Details: S1, S2 present. Regular rate and rhythm, sinus rhythm on telemetry. Sternum stable. A/V epicardial pacemaker wires were discontinued this morning. Palpable peripheral pulses bilaterally. Trace right lower extremity edema present. No calf pain or tenderness noted. Heart hugger in place with patient demonstrating appropriate use. Antiembolism stockings, SCDs present. - Gastrointestinal Gastrointestinal Comment(s): Abdomen soft, nontender, nondistended. Active bowel sounds present 4 quadrants. Positive bowel movement. Tolerating diet. - Genitourinary Genitourinary Comment(s): Patient continues to void clear, yellow urine. - Integumentary Integumentary Comment(s): Skin is warm and dry with evidence of good perfusion. Anterior chest incision well approximated and covered with dry intact dressing. Right lower extremity EVH site well approximated. - Neurologic Neurologic: Present: CNII-XII intact - Musculoskeletal Musculoskeletal: Present: gait normal, strength equal bilaterally - Psychiatric Psychiatric: Present: A&O x's 3, appropriate affect, intact judgment & insight - Allied health notes Allied health notes reviewed: nursing - Labs CBC & Chem 7: 05/17/18 04:57 05/17/18 04:57 Labs: Abnormal Lab Results - Last 24 Hours (Table) 05/16/18 05/16/18 05/16/18 Range/Units 11:59 17:14 20:37 RBC (4.30-5.90) m/uL Hgb (13.0-17.5) gm/dL Hct (39.0-53.0) % BUN (9-20) mg/dL POC Glucose (mg/dL) 130 H 191 H 244 H (75-99) mg/dL Magnesium (1.6-2.3) mg/dL 05/17/18 05/17/18 05/17/18 Range/Units 04:57 04:57 06:53 RBC 3.51 L (4.30-5.90) m/uL Hgb 9.9 L (13.0-17.5) gm/dL Hct 31.0 L (39.0-53.0) % BUN 33 H (9-20) mg/dL POC Glucose (mg/dL) 74 L (75-99) mg/dL Magnesium 2.7 H (1.6-2.3) mg/dL 05/17/18 Range/Units 07:18 RBC (4.30-5.90) m/uL Hgb (13.0-17.5) gm/dL Hct (39.0-53.0) % BUN (9-20) mg/dL POC Glucose (mg/dL) 100 H (75-99) mg/dL Magnesium (1.6-2.3) mg/dL Microbiology - Last 24 Hours (Table) 05/14/18 14:09 Gram Stain - Final Sputum Sputum Culture - Final - Imaging and Cardiology Chest x-ray: image reviewed Assessment and Plan (1) Coronary artery disease Current Visit: Yes Status: Chronic Code(s): I25.10 - ATHSCL HEART DISEASE OF [place] CORONARY ARTERY W/O ANG PCTRS SNOMED Code(s): 28498284 (2) Left main coronary artery disease Current Visit: Yes Status: Chronic Code(s): I25.10 - ATHSCL HEART DISEASE OF [place] CORONARY ARTERY W/O ANG PCTRS SNOMED Code(s): 922692314 (3) Hypertension Current Visit: Yes Status: Chronic Code(s): I10 - ESSENTIAL (PRIMARY) HYPERTENSION SNOMED Code(s): 68685300 (4) Hyperlipidemia Current Visit: Yes Status: Chronic Code(s): E78.5 - HYPERLIPIDEMIA, UNSPECIFIED SNOMED Code(s): 60715436 (5) Diabetes mellitus Current Visit: Yes Status: Chronic Code(s): E11.9 - TYPE 2 DIABETES MELLITUS WITHOUT COMPLICATIONS SNOMED Code(s): 69710268 (6) Single kidney Current Visit: Yes Status: Chronic Code(s): Z90.5 - ACQUIRED ABSENCE OF KIDNEY SNOMED Code(s): 016436212 (7) Family history of premature coronary artery disease Current Visit: Yes Status: Chronic Code(s): Z82.49 - FAMILY HX OF ISCHEM HEART DIS AND OTH DIS OF THE CIRC SYS SNOMED Code(s): 803490950 Plan: 1. Continue aspirin, statin, Plavix, losartan, Norvasc, beta katia therapy. Will increase beta katia therapy as tolerated, increased to 75 mg twice daily. 2. Encourage incentive spirometry use 10 times every hour while awake. 3. Increase activity as tolerated, ambulate in hallway. PT/OT/cardiac rehab following. 4. Will monitor daily labs and x-rays. Electrolyte replacement per protocol. 5. Insulin management per primary care service. 6. GI prophylaxis with Protonix, DVT prophylaxis with subcu heparin, SCDs. 7. Pain control with current medication regimen. 8. Bronchodilators per pulmonology. 9. Will give Lasix 20 mg IV push 1 today. 10. Likely will discharge to home with home care today. 11. More recommendations to follow. Time with Patient: Greater than 30
--- NOTE | 2018-05-17 09:22 | XR ---
EXAMINATION TYPE: XR chest 1V DATE OF EXAM: 05/17/2018 COMPARISON: 05/16/2018 HISTORY: Post CABG TECHNIQUE: Single frontal view of the chest is obtained. FINDINGS: Bilateral consolidation and tiny effusion stable. Heart size stable. Postsurgical changes noted. No pneumothorax. IMPRESSION: Bilateral consolidation and tiny effusion stable.
[2018-05-17] MEDS: PANTOPRAZOLE 40 MG TABLET PO SCH (09:28)
[2018-05-17] MEDS: ASPIRIN 325 MG TAB PO SCH (09:29)
[2018-05-17] MEDS: LOSARTAN 50 MG TAB PO SCH (09:29)
[2018-05-17] MEDS: ATORVASTATIN 40 MG TAB PO SCH (09:29)
[2018-05-17] MEDS: CLOPIDOGREL 75 MG TAB PO SCH (09:29)
[2018-05-17] MEDS: amLODIPine 5 MG TAB PO SCH ×2 (09:29→21:04)
[2018-05-17] MEDS: METOPROLOL TARTRATE 25 MG TAB PO SCH ×2 (09:34→21:04)
--- NOTE | 2018-05-17 09:34 | P.PN ---
Subjective Progress Note Date: 05/17/18 Principal diagnosis: Coronary artery bypass grafting, postop day 5 This is a 63-year-old white male, known history of hypertension, dyslipidemia, type 2 diabetes, nonsmoker, nondrinker, strong family history of premature coronary artery disease, known history of GERD and previous Sacha's fundoplication. Patient had previous history of kidney donation to his sister. Over the last couple of months, the patient has been noticing some chest discomfort, and some dyspnea on minimal exertion, which he thought initially could be related to his GERD symptoms coming back. However his symptoms where becoming more frequently, and abating with rest. Patient eventually underwent a full cardiac workup including cardiac catheterization which showed significant left main disease approximately 80% proximal LAD stenosis of 70-80% and 99% stenosis of the proximal left circumflex and 80% stenosis in the midsegment. Mid RCA was 90% stenosed. Considering the findings, patient was referred to cardiac surgery, and he is scheduled to undergo surgery tomorrow. Patient denies any previous pulmonary history, never smoked, has been quite active until the last couple of months when he has been noticing worsening symptoms of dyspnea on exertion and chest discomfort. 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 And he is usually quite active in his job physically. Chest x-ray showed some linear scarring at the right base, unchanged compared to a chest x-ray in 2016. Spirometry showed mild to moderate restriction. Reevaluated today on 05/11/2018, patient just came back to the ICU from his myocardial revascularization. Patient is now on mechanical ventilation, ventilator settings are tidal volume of 550, IMV rate of 14, FiO2 of 100%, and PEEP of 10. ABG and chest x-ray are pending. His peak airway pressure is about 28, plateau pressure is 22. Patient's O2 saturation is 100% on those vent settings. Again x-ray and ABG are pending. Patient is hemodynamically stable, on mechanical ventilation, in no distress. Reevaluated today on 05/12/2018, patient is postoperative day #1. Shortly after I saw the patient yesterday, we noted that his oxygenation has been very poor and marginal. In spite of on the percent FiO2 and a PEEP of 10, his pO2 was very low and marginal. Hence we felt that the patient developed post CABG ARDS., And I have recommended lower tidal volumes, I have also recommended higher PEEP and now the PEEP today is at 16. I have Him on the percent through the night, and titrated FiO2 gradually presently today at 50%, and the PEEP at 16. ABG on those settings about an hour ago showed a pO2 of 101 pCO2 of 40 pH of 7.42. Hence I cut down the PEEP down to 14. And I kept him at 50% FiO2. Patient remains on a relatively low tidal volume of 450, his assist control rate is at 28, and his PEEP is at 14 at present. Chest x-ray is basically unremarkable. His baseline PFT showed some minimal restriction, and again this finding of post CABG ARDS is unexpected. But clearly that's what we are dealing with at present. Discussed his condition many times with different physicians on the case including the cardiac surgeon, and we felt that it would be best to support him at present and continue low tidal volume mode of mechanical ventilation. His peak airway pressure today is 35. His plateau pressure is 25. All labs were reviewed including his electrolytes and renal profile. CBC were all noted to be normal. Patient is hemodynamically stable, and he is on propofol presently at 50 mcg/kg per hour. Reevaluated today on 05/13/2018, patient remains on mechanical ventilation, his postoperative day #2. Patient did develop post CABG ARDS, and we have managed his treatment with low tidal volume mechanical ventilation, high PEEP, steroids , bronchodilators, and I was able to taper down his FiO2 to 50% and in the last 24 hours I was able to taper down his PEEP from 14 last night to 12 to 10 and this morning is down to 8. Patient maintain his excellent O2 saturation, and we have switch him from propofol earlier this morning to Precedex. Patient was given a trial of pressure support of 8 and The PEEP at 8. Patient did extremely well, and his follow-up ABG on that mode of mechanical ventilation for one hour showed excellent oxygenation with a pO2 of 115 pCO2 of 38. PH of 7.45. Hence, and while I was at bedside, patient had weaning parameters, and updated his family members about his condition, patient was noted to be extremely appropriate, following all instructions, endotracheal tube cuff leak test was done, and I proceeded to extubating the patient. Patient was extubated to a high flow nasal cannula at 7 L/m. Reevaluating the patient back and forth while I was in the ICU, and he seemed to tolerate the extubation extremely well. All his labs, medications, chest x-ray were all reviewed. Reevaluated today on 05/14/2018, patient remains in the ICU, he was extubated yesterday, however he continues to require significant amount of oxygen via high flow nasal cannula, presently at 13 L/m. O2 saturation remains marginal in the low 90s. The chest x-ray is showing evidence of atelectasis and interstitial edema with bilateral pleural effusions, hence I recommended a small dose of Lasix 20 mg IV push to be given this morning. Patient is able to do well with incentive spirometry, he does have some productive cough, and his sputum was sent for cultures. No evidence of leukocytosis, hemoglobin is 9.5. His basic metabolic profile is normal and renal profile is normal. Creatinine is 0.88. Patient remains to have hypertension, and he is on Klonopin exit drip. Chest tubes and his [place]-Gayle catheter was discontinued yesterday Reevaluated today on 05/15/2018, remains in the ICU, still requiring high flow O2 via nasal cannula, he is presently on 10 L/m O2 flow, and his O2 saturation is in the low 90s. Clinically however the patient is feeling much better, breathing a lot easier. I reviewed the Chest x-ray showed small tiny pleural effusions and bibasilar atelectasis. I reviewed all his labs including CBC, basic metabolic profile, renal profile, liver profile, and they seem to be relatively normal. Patient remains hemodynamically stable, still requiring clever Prax for elevated blood pressure, and he was started today on oral Norvasc. At this point considering the patient is still requiring a high flow nasal cannula, I believe the patient should remain in the ICU. I did cut down the dose of his steroids yesterday, and he could be basically switch to oral prednisone tomorrow burst and taper On 05/16/2018 patient seen again in the intensive care unit. He is awake and alert, sitting up in the recliner, in no acute distress, he is currently on 2 L per nasal cannula, and his pulse ox is 91-92%, denies any respiratory distress, is working on his incentive spirometry, he diabetes mellitus postop day 5 status post four-vessel bypass grafting. Today's chest x-ray has been reviewed by Dr. Orr, small bilateral effusions were noted, with a pseudotumor in the right lung. No IV drips, no IVs. His labs have been reviewed, the CBC 7.8, hemoglobin is 9.6, sodium is 143, potassium is 4.8, chloride is 109, BUN is 34 creatinine 0.89. Lung sounds were clear, diminished at the bases, no wheezing no rhonchi noted, we can stop the IV Solu-Medrol. Sinus rhythm on the monitor with a controlled rate, hemodynamically stable. On 05/17/2018 patient seen in follow-up in the intensive care unit, he is awake and alert, oriented 3, no acute distress, room air pulse ox is 92%, lung sounds are clear to auscultation, pain is well controlled, vital signs are stable, no IV drips, patient has been hep-locked, this is postop day 5 three- vessel coronary artery bypass grafting, today's chest x-ray has been reviewed by Dr. Garcia, and showed tiny bilateral pleural effusions, that are stable in appearance, and some adjacent atelectasis. No other acute findings. And on his incentive spirometry, ambulating, today's labs have been reviewed. Patient is doing well, anticipate discharge home today. Objective - Vital Signs Vital signs: Vital Signs Temp 97.6 F 05/17/18 04:00 Pulse 88 05/17/18 07:44 Resp 12 05/17/18 04:00 BP 157/80 05/17/18 04:00 Pulse Ox 92 L 05/17/18 07:32 Intake & Output 05/16/18 05/17/18 05/17/18 18:59 06:59 18:59 Intake Total 490 Output Total 1650 400 Balance -1160 -400 Weight 106.4 kg 106.1 kg Intake: Oral 490 Output: Urine 1650 400 Other: Voiding Method Toilet Urinal # Voids 2 ABP, PAP, CO, CI - Last Documented Arterial Blood Pressure 164/67 Pulmonary Artery Pressure 34/19 Cardiac Output 9.8 Cardiac Index 4.6 - Exam Physical Exam: 63-year-old white male on a bedside recliner, room air Head: Atraumatic, normocephalic, HEENT:[Neck is supple.] [No neck masses.] [No thyromegaly.] [No JVD.] Upper lip remains a bit swollen from trauma from endotracheal tube Chest: [Symmetrical chest expansion, diminished breath sounds at the bases, no crackles, no rhonchi and no wheezes. Cardiac Exam: [Normal S1 and S2, no S3 gallop, no murmur. Abdomen: [Obese, Soft, nontender, no megaly, no rebound, no guarding, normal bowel sounds.] Extremities: [No clubbing, no edema, no cyanosis. Both lower extremities are wrapped with Orion wraps.] Neurological Exam: Alert oriented 3, no gross focal neurologic deficit Psychiatric: Normal mood, affect, and mental status examination. Skin: No rashes - Labs CBC & Chem 7: 05/17/18 04:57 05/17/18 04:57 Labs: Abnormal Lab Results - Last 24 Hours (Table) 05/16/18 05/16/18 05/16/18 Range/Units 11:59 17:14 20:37 RBC (4.30-5.90) m/uL Hgb (13.0-17.5) gm/dL Hct (39.0-53.0) % BUN (9-20) mg/dL POC Glucose (mg/dL) 130 H 191 H 244 H (75-99) mg/dL Magnesium (1.6-2.3) mg/dL 05/17/18 05/17/18 05/17/18 Range/Units 04:57 04:57 06:53 RBC 3.51 L (4.30-5.90) m/uL Hgb 9.9 L (13.0-17.5) gm/dL Hct 31.0 L (39.0-53.0) % BUN 33 H (9-20) mg/dL POC Glucose (mg/dL) 74 L (75-99) mg/dL Magnesium 2.7 H (1.6-2.3) mg/dL 05/17/18 Range/Units 07:18 RBC (4.30-5.90) m/uL Hgb (13.0-17.5) gm/dL Hct (39.0-53.0) % BUN (9-20) mg/dL POC Glucose (mg/dL) 100 H (75-99) mg/dL Magnesium (1.6-2.3) mg/dL Microbiology - Last 24 Hours (Table) 05/14/18 14:09 Gram Stain - Final Sputum Sputum Culture - Final Assessment and Plan Plan: 1 triple-vessel coronary artery disease, with left main coronary artery disease , patient is status post CABG, postoperative day # 5 patient was extubated on , still requiring high flow O2. Presently at 2 L/m, was on 13 L/m yesterday. 2 post CABG ARDS, postoperative hypoxic respiratory failure, unexpected quite severe initially, required initially high PEEP, the PEEP was as high as 16, and FiO2 at 100% initially, eventually we were able to titrate down the FiO2, to 50% , and later went down to a PEEP of 8 gradually, and I was able to extubate the patient on 05/13/2018. However he remains on a high flow nasal cannula. 3 benign essential hypertension 4 type 2 diabetes 5 single kidney, renal profile seems to be normal today to 6 family history of premature coronary artery disease. 7 postoperative hypoxic respiratory failure secondary to ARDS, unexpected and being addressed accordingly. 8 postoperative basilar atelectasis as expected, no evidence of congestive heart failure today. This is based on the chest x-ray which I reviewed myself. Plan: Continue current plan of care, continue encouraging deep breathing and coughing , ambulation, patient is doing well, working on his incentive spirometry, today' s chest x-ray shows tiny bilateral pleural effusions and some atelectasis, and pseudotumor in the right lung. No other acute findings, vital signs are stable , anticipate discharge home today. Need follow-up with Dr. Malhotra in the office in one week I performed a history & physical examination of the patient and discussed their management with my nurse practitioner, Omaira Mcmanus. I reviewed the nurse practitioner's note and agree with the documented findings and plan of care. Lung sounds are clear. The findings and the impression was discussed with the patient. I attest to the documentation by the nurse practitioner. Time with Patient: Greater than 30
--- NOTE | 2018-05-17 10:08 | PN ---
PROGRESS NOTE Mr. Kumar is status post bypass surgery. He is a kidney donor. He is doing well. He is maintaining sinus rhythm. Blood pressure control is good. Renal function is good. Vitals are stable, S1-S2 heard normally. Lungs reveal improved air entry. Abdomen and lower extremity exam unchanged. Plan is to continue current medications, incentive spirometry and see how he does. MMODL / IJN: [id number] /
[2018-05-17] MEDS: HYDROcodone/APAP 7.5-325MG 1 EACH TAB PO PRN ×2 (10:39→21:04)
--- NOTE | 2018-05-17 11:02 | P.PN ---
Subjective Progress Note Date: 05/16/18 This is a 63-year-old male one of Dr. 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, hyperlipidemia, diabetes mellitus type 2, GERD status post Sacha fundoplication, and history of premature coronary artery disease patient has been having significant effort to dyspnea with chest discomfort especially in the cold weather initially was getting better with rest and eventually did not get better after arrest he ended up seeing his primary care physician sent him for a dobutamine stress echo Dayco portion was normal however the patient the EKG portion was abnormal ended up seeing cardiology underwent left heart catheterization that showed a distal left main disease 70% as well as triple-vessel disease including the left anterior descending coronary artery with 70% left circumflex 99% and RCA 80%, he was seen in consultation by Pavel neal surgery scheduled to go for open heart surgery tomorrow morning. 05/12: On May 11, patient underwent urgent quadruple coronary artery bypass grafting using the left internal mammary artery to the diagonal artery, then to the left anterior descending artery, reverse saphenous vein graft from the aorta to the posterior descending artery, reverse saphenous vein graft from the aorta to the high obtuse marginal artery. Patient remains intubated and on mechanical ventilation with tidal volume 450, FiO2 50 and PEEP of 16. Plan is to possibly wean this afternoon. Hannon catheter is in place with good urine output. In swollen drip is in place and blood sugars are running between 121 - 148. Chest tubes, right sided Cordis in place. 05/13: Patient was extubated late this morning. He denies having any sore throat, headache. He does have edema to the lips. His urine output is running 25-40 mL per hour. He complains of feeling tired. His surgical pain is controlled. He remains on insulin drip with blood sugars running 121-194. Plan will be to continue insulin drip for another 24 hours. 05/14 patient remains in ICu, conversational dyspnea noted, has 10l o2 NC, no urinary difficulties no chest pain, patient requirs a total of 165 units of insulin x 24 hrs, patient currently on solumedrol 40q 8 hrs, and will be switched to novolog 14 units premeal starting dinner and levemir at 30 units at hs. this is half of his current requirments but solumedrol was recently decreased. appetite is marginal but ok 75 % of meal. insulin drip will be discontinued after dinner meal tonight 05/15. patient is less dypneic stsill requiring O2 10 l nc, atelectasis on cxr and small pleural effesuion, no significant edema. patient is currently ambulating had gone around the hallway with o2, pulse ox dips to 79%. no chest pain on ambulation. no light headedness, pulse ox quicklhy picks up to 94% upon resting 4-5 seconds later. 05/16: Patient remains in the intensive care unit. Blood sugars are running between 105 and 170. family living educator requested regarding insulin management. Patient is currently on 2 L nasal cannula pulse oxing 91-92%. He states his breathing status is improved. He has been started on IV Solu-Medrol by pulmonary medicine. No current chest pain. Hemoglobin 9.3. Review of Systems Constitutional: Denies chronic headaches, Denies fever, Denies weakness, Denies weight gain, report fatigue Eyes: denies blurred vision, denies bulging eye, denies decreased vision, denies diplopia, denies discharge Ears, nose, mouth and throat: Denies dental pain, Denies neck lump, Denies sore throat Cardiovascular: Denies chest pain, Reports decreased exercise tolerance, Reports dyspnea on exertion, Reports high blood pressure, Reports shortness of breath, Denies syncope Respiratory: Denies congestion, Denies cough with sputum, Denies home oxygen, Denies sleep apnea, Denies snoring, Denies wheezing Gastrointestinal: Denies abdominal pain, Denies heartburn, Denies melena, Denies nausea, Denies vomiting Genitourinary: Denies dysuria, Denies nocturia, Denies polyuria Musculoskeletal: Denies myalgias Musculoskeletal: absent: ankle pain, ankle stiffness, ankle swelling, elbow pain , elbow stiffness, elbow swelling, foot pain, foot stiffness, foot swelling, hand pain, hand stiffness, hand swelling, hip pain, hip stiffness, hip swelling , knee pain, knee stiffness, knee swelling, shoulder pain, shoulder stiffness, shoulder swelling, wrist pain, wrist stiffness, wrist swelling Integumentary: Denies pruritus, Denies rash Neurological: Denies numbness, Denies weakness Psychiatric: Denies anxiety, Denies depression Endocrine: Denies fatigue, Denies weight change Objective - Vital Signs Vital signs: Vital Signs Temp 98 F 05/16/18 12:00 Pulse 67 05/16/18 14:00 Resp 17 05/16/18 14:00 BP 133/65 05/16/18 14:00 Pulse Ox 92 L 05/16/18 14:00 Intake & Output 05/15/18 05/16/18 05/16/18 18:59 06:59 18:59 Intake Total 1017.067 550 490 Output Total 456 779 8146 Balance 317.067 -200 -510 Weight 106.4 kg 106.4 kg Intake: IV 240 Lactated Ringers 1,000 ml 240 @ 20 mls/hr IV .Q24H SEJAL Rx#:[id number] Intake, IV Titration 27.067 50 Amount Clevidipine Butyrate 25 27.067 50 mg In Empty Bag 1 bag @ 1 MG/HR 2 mls/hr IV .Q24H SEJAL Rx#:[id number] Oral 750 500 490 Output: Urine 361 007 5586 Other: Voiding Method Urinal Toilet Toilet Urinal Urinal # Voids 1 1 0 # Bowel Movements 1 ABP, PAP, CO, CI - Last Documented Arterial Blood Pressure 164/67 Pulmonary Artery Pressure 34/19 Cardiac Output 9.8 Cardiac Index 4.6 - Exam General appearance: average body habitus, no acute distress. - EENT Eyes: anicteric sclerae, EOMI, PERRLA, no ptosis, no scleral icterus, normal appearance ENT: hearing grossly normal, NA/AT, normal oropharynx Ears: bilateral: normal - Neck Neck: no lymphadenopathy, normal ROM, no rigidity, no stridor, no thyromegaly, right-sided Cordis Carotids: bilateral: upstroke normal Thyroid: bilateral: normal size - Respiratory Respiratory: bilateral: diminished, negative: dullness, rales, rhonchi, wheezing , prolonged expiration, prolonged inspiration, chest tubes in place - Cardiovascular Rhythm: regular Heart sounds: normal: S1, S2 Abnormal Heart Sounds: no systolic murmur, no S3 Gallop, no S4 Gallop - Gastrointestinal General gastrointestinal: normal bowel sounds, soft, no splenomegaly, no tenderness, no umbilical hernia Hannon catheter in place draining clear marjorie urine - Integumentary Integumentary: normal, normal turgor - Neurologic Neurologic: CNII-XII intact - Musculoskeletal Musculoskeletal: strength equal bilaterally - Psychiatric Psychiatric: Normal affect, alert and oriented 3 - Labs CBC & Chem 7: 05/17/18 04:57 05/17/18 04:57 Labs: Abnormal Lab Results - Last 24 Hours (Table) 05/15/18 05/15/18 05/16/18 Range/Units 16:54 20:24 05:26 RBC 3.35 L (4.30-5.90) m/uL Hgb 9.6 L (13.0-17.5) gm/dL Hct 29.8 L (39.0-53.0) % Lymphocytes # 0.9 L (1.0-4.8) k/uL Chloride (98-107) mmol/L BUN (9-20) mg/dL Glucose (74-99) mg/dL POC Glucose (mg/dL) 175 H 248 H (75-99) mg/dL Magnesium (1.6-2.3) mg/dL Total Protein (6.3-8.2) g/dL Albumin (3.5-5.0) g/dL 05/16/18 05/16/18 05/16/18 Range/Units 05:26 07:02 11:59 RBC (4.30-5.90) m/uL Hgb (13.0-17.5) gm/dL Hct (39.0-53.0) % Lymphocytes # (1.0-4.8) k/uL Chloride 109 H (98-107) mmol/L BUN 34 H (9-20) mg/dL Glucose 141 H (74-99) mg/dL POC Glucose (mg/dL) 151 H 130 H (75-99) mg/dL Magnesium 3.0 H (1.6-2.3) mg/dL Total Protein 5.7 L (6.3-8.2) g/dL Albumin 3.2 L (3.5-5.0) g/dL Microbiology - Last 24 Hours (Table) 05/14/18 14:09 Gram Stain - Final Sputum Sputum Culture - Final Assessment and Plan Plan: 1. Distal left main disease with triple-vessel coronary artery disease status post urgent quadruple coronary artery bypass grafting using the left internal mammary artery to the diagonal artery, then to the left anterior descending artery, reverse saphenous vein graft from the aorta to the posterior descending artery, reverse saphenous vein graft from the aorta to the high obtuse marginal artery. Continue plan per cardiothoracic surgery team. Continue aspirin 325 mg daily, Lipitor 40 mg daily, Plavix 75 mg daily, Lopressor 50 mg twice daily. Patient is on Solu-Medrol. 2. Hypertension and hypertensive cardiovascular disease. Continue Lopressor 25 mg orally twice every day. 3. Hyperlipidemia. Continue Lipitor 40 mg orally once every day. 4. Diabetes mellitus type 2. Patient is currently on insulin drip which will be continued another 24 hours. 5. Acute hypoxic respiratory failure requiring high flow oxygen. Continue incentive spirometry and IV diuretics. 6. DVT prophylaxis. Continue knee-high MEENA hose and SCDs. He is currently on heparin drip. 7. GI prophylaxis. Continue PPI. Full code. Discharge plan: Return home with [facility] Impression and plan of care have been directed as dictated by the signing physician. Haydee Langston nurse practitioner acting as scribe for signing physician.
[2018-05-17 12:15] LABS: Glucose,Whole Blood 114 mg/dL (75-99)
--- NOTE | 2018-05-17 15:17 | P.PN ---
Subjective Progress Note Date: 05/17/18 This is a 63-year-old male one of Dr. 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, hyperlipidemia, diabetes mellitus type 2, GERD status post Sacha fundoplication, and history of premature coronary artery disease patient has been having significant effort to dyspnea with chest discomfort especially in the cold weather initially was getting better with rest and eventually did not get better after arrest he ended up seeing his primary care physician sent him for a dobutamine stress echo Dayco portion was normal however the patient the EKG portion was abnormal ended up seeing cardiology underwent left heart catheterization that showed a distal left main disease 70% as well as triple-vessel disease including the left anterior descending coronary artery with 70% left circumflex 99% and RCA 80%, he was seen in consultation by Pavel neal surgery scheduled to go for open heart surgery tomorrow morning. 05/12: On May 11, patient underwent urgent quadruple coronary artery bypass grafting using the left internal mammary artery to the diagonal artery, then to the left anterior descending artery, reverse saphenous vein graft from the aorta to the posterior descending artery, reverse saphenous vein graft from the aorta to the high obtuse marginal artery. Patient remains intubated and on mechanical ventilation with tidal volume 450, FiO2 50 and PEEP of 16. Plan is to possibly wean this afternoon. Hannon catheter is in place with good urine output. In swollen drip is in place and blood sugars are running between 121 - 148. Chest tubes, right sided Cordis in place. 05/13: Patient was extubated late this morning. He denies having any sore throat, headache. He does have edema to the lips. His urine output is running 25-40 mL per hour. He complains of feeling tired. His surgical pain is controlled. He remains on insulin drip with blood sugars running 121-194. Plan will be to continue insulin drip for another 24 hours. 05/14 patient remains in ICu, conversational dyspnea noted, has 10l o2 NC, no urinary difficulties no chest pain, patient requirs a total of 165 units of insulin x 24 hrs, patient currently on solumedrol 40q 8 hrs, and will be switched to novolog 14 units premeal starting dinner and levemir at 30 units at hs. this is half of his current requirments but solumedrol was recently decreased. appetite is marginal but ok 75 % of meal. insulin drip will be discontinued after dinner meal tonight 05/15. patient is less dypneic stsill requiring O2 10 l nc, atelectasis on cxr and small pleural effesuion, no significant edema. patient is currently ambulating had gone around the hallway with o2, pulse ox dips to 79%. no chest pain on ambulation. no light headedness, pulse ox quicklhy picks up to 94% upon resting 4-5 seconds later. 05/16: Patient remains in the intensive care unit. Blood sugars are running between 105 and 170. hospital educator requested regarding insulin management. Patient is currently on 2 L nasal cannula pulse oxing 91-92%. He states his breathing status is improved. He has been started on IV Solu-Medrol by pulmonary medicine. No current chest pain. Hemoglobin 9.3. 05/17: Blood sugar at bedtime last night was 244. Patient is off IV Solu- Medrol. Scheduled NovoLog added at 10 units with breakfast, 8 units with lunch and 6 units with supper along with Levemir 35 units at bedtime. Morning blood sugar was 74 and insulins will be adjusted to the following: Levemir 20 units at bedtime, NovoLog 3 units with meals and scale. At the time of discharge patient continue the scheduled Levemir and scheduled NovoLog. Pulse ox is 94% on 2 L nasal cannula but he states he dropped to 74% with ambulation.. Review of Systems Constitutional: Denies chronic headaches, Denies fever, Denies weakness, Denies weight gain, report fatigue Eyes: denies blurred vision, denies bulging eye, denies decreased vision, denies diplopia, denies discharge Ears, nose, mouth and throat: Denies dental pain, Denies neck lump, Denies sore throat Cardiovascular: Denies chest pain, Reports decreased exercise tolerance, Reports dyspnea on exertion, Reports high blood pressure, Reports shortness of breath, Denies syncope Respiratory: Denies congestion, Denies cough with sputum, Denies home oxygen, Denies sleep apnea, Denies snoring, Denies wheezing Gastrointestinal: Denies abdominal pain, Denies heartburn, Denies melena, Denies nausea, Denies vomiting Genitourinary: Denies dysuria, Denies nocturia, Denies polyuria Musculoskeletal: Denies myalgias Musculoskeletal: absent: ankle pain, ankle stiffness, ankle swelling, elbow pain , elbow stiffness, elbow swelling, foot pain, foot stiffness, foot swelling, hand pain, hand stiffness, hand swelling, hip pain, hip stiffness, hip swelling , knee pain, knee stiffness, knee swelling, shoulder pain, shoulder stiffness, shoulder swelling, wrist pain, wrist stiffness, wrist swelling Integumentary: Denies pruritus, Denies rash Neurological: Denies numbness, Denies weakness Psychiatric: Denies anxiety, Denies depression Endocrine: Denies fatigue, Denies weight change Objective - Vital Signs Vital signs: Vital Signs Temp 97.6 F 05/17/18 04:00 Pulse 88 05/17/18 07:44 Resp 12 05/17/18 04:00 BP 157/80 05/17/18 04:00 Pulse Ox 92 L 05/17/18 07:32 Intake & Output 05/16/18 05/17/18 05/17/18 18:59 06:59 18:59 Intake Total 490 Output Total 1650 400 450 Balance -1160 -400 -450 Weight 106.4 kg 106.1 kg Intake: Oral 490 Output: Urine 1650 400 450 Other: Voiding Method Toilet Toilet Urinal Urinal # Voids 2 1 ABP, PAP, CO, CI - Last Documented Arterial Blood Pressure 164/67 Pulmonary Artery Pressure 34/19 Cardiac Output 9.8 Cardiac Index 4.6 - Exam General appearance: average body habitus, no acute distress. Patient is sitting in a recliner and appears to be comfortable. - EENT Eyes: anicteric sclerae, EOMI, PERRLA, no ptosis, no scleral icterus, normal appearance ENT: hearing grossly normal, NA/AT, normal oropharynx Ears: bilateral: normal - Neck Neck: no lymphadenopathy, normal ROM, no rigidity, no stridor, no thyromegaly Carotids: bilateral: upstroke normal Thyroid: bilateral: normal size - Respiratory Respiratory: bilateral: diminished, negative: dullness, rales, rhonchi, wheezing , prolonged expiration, prolonged inspiration - Cardiovascular Rhythm: regular Heart sounds: normal: S1, S2 Abnormal Heart Sounds: no systolic murmur, no S3 Gallop, no S4 Gallop - Gastrointestinal General gastrointestinal: normal bowel sounds, soft, no splenomegaly, no tenderness, no umbilical hernia - Integumentary Integumentary: normal, normal turgor - Neurologic Neurologic: CNII-XII intact - Musculoskeletal Musculoskeletal: strength equal bilaterally - Psychiatric Psychiatric: Normal affect, alert and oriented 3 - Labs CBC & Chem 7: 05/17/18 04:57 05/17/18 04:57 Labs: Abnormal Lab Results - Last 24 Hours (Table) 05/16/18 05/16/18 05/16/18 Range/Units 11:59 17:14 20:37 RBC (4.30-5.90) m/uL Hgb (13.0-17.5) gm/dL Hct (39.0-53.0) % BUN (9-20) mg/dL POC Glucose (mg/dL) 130 H 191 H 244 H (75-99) mg/dL Magnesium (1.6-2.3) mg/dL 05/17/18 05/17/18 05/17/18 Range/Units 04:57 04:57 06:53 RBC 3.51 L (4.30-5.90) m/uL Hgb 9.9 L (13.0-17.5) gm/dL Hct 31.0 L (39.0-53.0) % BUN 33 H (9-20) mg/dL POC Glucose (mg/dL) 74 L (75-99) mg/dL Magnesium 2.7 H (1.6-2.3) mg/dL 05/17/18 Range/Units 07:18 RBC (4.30-5.90) m/uL Hgb (13.0-17.5) gm/dL Hct (39.0-53.0) % BUN (9-20) mg/dL POC Glucose (mg/dL) 100 H (75-99) mg/dL Magnesium (1.6-2.3) mg/dL Microbiology - Last 24 Hours (Table) 05/14/18 14:09 Gram Stain - Final Sputum Sputum Culture - Final Assessment and Plan Plan: 1. Distal left main disease with triple-vessel coronary artery disease status post urgent quadruple coronary artery bypass grafting using the left internal mammary artery to the diagonal artery, then to the left anterior descending artery, reverse saphenous vein graft from the aorta to the posterior descending artery, reverse saphenous vein graft from the aorta to the high obtuse marginal artery. Continue plan per cardiothoracic surgery team. Continue aspirin 325 mg daily, Lipitor 40 mg daily, Plavix 75 mg daily, Lopressor 50 mg twice daily. Solu-Medrol discontinued. 2. Hypertension and hypertensive cardiovascular disease. Continue Lopressor 25 mg orally twice every day. 3. Hyperlipidemia. Continue Lipitor 40 mg orally once every day. 4. Diabetes mellitus type 2. Insulin is adjusted to Levemir 20 units at bedtime and NovoLog 3 units scheduled with meals. 5. Acute hypoxic respiratory failure requiring high flow oxygen. Continue incentive spirometry and IV diuretics prn. 6. DVT prophylaxis. Continue knee-high MEENA hose and SCDs. He is currently on heparin drip. 7. GI prophylaxis. Continue PPI. Full code. Discharge plan: Return home with [facility] care most likely tomorrow Impression and plan of care have been directed as dictated by the signing physician. Haydee Langston nurse practitioner acting as scribe for signing physician.
[2018-05-17 16:56] LABS: Glucose,Whole Blood 146 mg/dL (75-99)
[2018-05-17 20:21] LABS: Glucose,Whole Blood 212 mg/dL (75-99)
[2018-05-17] MEDS ORDERED: INSULIN DETEMIR 100 UNIT/ML 10 ML VIAL SQ SCH (21:00)
[2018-05-17] MEDS: SENNOSIDES-DOCUSATE SODIUM 1 EACH TAB PO SCH (21:04)
[2018-05-18] MEDS: MELATONIN 3 MG TABLET PO SCH (02:16)
[2018-05-18 04:56] LABS: HCT 34.7 % (39.0-53.0); HGB 10.9 gm/dL (13.0-17.5); MCH 27.3 pg (25.0-35.0); MCHC 31.3 g/dL (31.0-37.0); MCV 87.2 fL (80.0-100.0); Platelet Count 313 k/uL (150-450); RBC 3.98 m/uL (4.30-5.90); RDW 14.2 % (11.5-15.5); WBC 10.6 k/uL (3.8-10.6)
[2018-05-18 05:12] LABS: Albumin 3.5 g/dL (3.5-5.0); Calcium 8.8 mg/dL (8.4-10.2); Potassium 4.2 mmol/L (3.5-5.1); Total Bilirubin 0.9 mg/dL (0.2-1.3); Total Protein 6.1 g/dL (6.3-8.2)
[2018-05-18 06:48] LABS: Glucose,Whole Blood 112 mg/dL (75-99)
[2018-05-18] MEDS: INSULIN ASPART 100 UNIT/ML 1 ML 10 ML VIAL SQ SCH ×3 (06:52→14:09)
[2018-05-18] MEDS: PANTOPRAZOLE 40 MG TABLET PO SCH (07:06)
[2018-05-18] MEDS: HYDROcodone/APAP 7.5-325MG 1 EACH TAB PO PRN ×2 (07:06→14:13)
[2018-05-18] MEDS: IPRATROPIUM-ALBUTEROL 3 ML NEB INHALATION SCH ×3 (08:01→15:34)
--- NOTE | 2018-05-18 08:06 | XR ---
EXAMINATION TYPE: XR chest 2V DATE OF EXAM: 05/18/2018 COMPARISON: 05/17/2018 TECHNIQUE: PA and lateral views submitted. HISTORY: Postop FINDINGS: Bilateral consolidation small effusion. Heart enlarged. Postsurgical changes. No sizable pneumothorax . IMPRESSION: 1. Stable bilateral consolidation and pleural effusion.
[2018-05-18] MEDS: HEPARIN SODIUM,PORCINE 5,000 UNIT/ML 1 ML VIAL SQ SCH (08:13)
[2018-05-18] MEDS: amLODIPine 5 MG TAB PO SCH (08:13)
[2018-05-18] MEDS: ASPIRIN 325 MG TAB PO SCH (08:13)
[2018-05-18] MEDS: METOPROLOL TARTRATE 25 MG TAB PO SCH (08:14)
[2018-05-18] MEDS: LOSARTAN 50 MG TAB PO SCH (08:14)
[2018-05-18] MEDS: ATORVASTATIN 40 MG TAB PO SCH (08:14)
[2018-05-18] MEDS: CLOPIDOGREL 75 MG TAB PO SCH (08:14)
[2018-05-18 08:26] VITALS: RESP 16; TEMP 97.8
--- NOTE | 2018-05-18 08:41 | P.PN ---
Subjective Progress Note Date: 05/18/18 Principal diagnosis: Left main disease with severe triple vessel coronary artery disease, overall preserved left ventricular function. 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 POD #7 urgent quadruple coronary artery bypass grafting using the left internal mammary artery sequentially to the diagonal artery, then to the left anterior descending artery, reverse saphenous vein graft from the aorta to the posterior descending artery, reverse saphenous vein graft from the aorta to the high obtuse marginal artery. Endoscopic harvesting of the right greater saphenous vein. Intraoperative transesophageal echocardiogram and epi-aortic scanning. Intraoperative graft flow measurements using the [place] system. Postoperative hypoxic respiratory failure, possible acute lung injury of unknown etiology, prolonged mechanical ventilation, an unexpected outcome. The patient is currently sitting up in the recliner in no acute distress. Currently hemodynamically stable. States pain is well controlled on current medication regimen, denies shortness of breath. Patient has been ambulating around the hallway. Oxygen has been weaned down. No new complaints. Transfer orders were placed yesterday to send patient to [address] [place] [address] cardiac stepdown unit, however there is no bed availability at this time. Objective - Vital Signs Vital signs: Vital Signs Temp 97.8 F 05/18/18 08:00 Pulse 88 05/18/18 08:11 Resp 16 05/18/18 08:00 BP 156/95 05/18/18 08:00 Pulse Ox 94 L 05/18/18 08:01 Intake & Output 05/17/18 05/18/18 05/18/18 18:59 06:59 18:59 Output Total 1650 1075 Balance -1650 -1075 Output: Urine 1650 1075 Other: Voiding Method Toilet Urinal # Voids 2 ABP, PAP, CO, CI - Last Documented Arterial Blood Pressure 164/67 Pulmonary Artery Pressure 34/19 Cardiac Output 9.8 Cardiac Index 4.6 - Constitutional General appearance: Present: cooperative, no acute distress, obese - Respiratory Details: Lungs sounds diminished bilaterally. Respirations even, nonlabored. Currently on room air with oxygen saturation 92%. Able to achieve 1500 mL on his incentive spirometry. Strong cough. - Cardiovascular Details: S1, S2 present. Regular rate and rhythm, sinus rhythm on telemetry. Sternum stable. Palpable peripheral pulses bilaterally. Trace right lower extremity edema present. No calf pain or tenderness noted. Heart hugger in place with patient demonstrating appropriate use. Antiembolism stockings, SCDs present. - Gastrointestinal Gastrointestinal Comment(s): Abdomen soft, nontender, nondistended. Active bowel sounds present 4 quadrants. Positive bowel movement. Tolerating diet. - Genitourinary Genitourinary Comment(s): Patient continues to void clear, yellow urine. - Integumentary Integumentary Comment(s): Skin is warm and dry with evidence of good perfusion. Anterior chest incision well approximated and covered with dry intact dressing. Right lower extremity EVH site well approximated. - Neurologic Neurologic: Present: CNII-XII intact - Musculoskeletal Musculoskeletal: Present: gait normal, strength equal bilaterally - Psychiatric Psychiatric: Present: A&O x's 3, appropriate affect, intact judgment & insight - Allied health notes Allied health notes reviewed: nursing - Labs CBC & Chem 7: 05/18/18 04:27 05/18/18 04:27 Labs: Abnormal Lab Results - Last 24 Hours (Table) 05/17/18 05/17/18 05/17/18 Range/Units 12:13 16:54 20:20 RBC (4.30-5.90) m/uL Hgb (13.0-17.5) gm/dL Hct (39.0-53.0) % Carbon Dioxide (22-30) mmol/L BUN (9-20) mg/dL Glucose (74-99) mg/dL POC Glucose (mg/dL) 114 H 146 H 212 H (75-99) mg/dL Total Protein (6.3-8.2) g/dL 05/18/18 05/18/18 05/18/18 Range/Units 04:27 04:27 06:47 RBC 3.98 L (4.30-5.90) m/uL Hgb 10.9 L (13.0-17.5) gm/dL Hct 34.7 L (39.0-53.0) % Carbon Dioxide 31 H (22-30) mmol/L BUN 30 H (9-20) mg/dL Glucose 121 H (74-99) mg/dL POC Glucose (mg/dL) 112 H (75-99) mg/dL Total Protein 6.1 L (6.3-8.2) g/dL - Imaging and Cardiology Chest x-ray: report reviewed, image reviewed Assessment and Plan (1) Coronary artery disease Current Visit: Yes Status: Chronic Code(s): I25.10 - ATHSCL HEART DISEASE OF [place] CORONARY ARTERY W/O ANG PCTRS SNOMED Code(s): 85352304 (2) Left main coronary artery disease Current Visit: Yes Status: Chronic Code(s): I25.10 - ATHSCL HEART DISEASE OF [place] CORONARY ARTERY W/O ANG PCTRS SNOMED Code(s): 614981990 (3) Hypertension Current Visit: Yes Status: Chronic Code(s): I10 - ESSENTIAL (PRIMARY) HYPERTENSION SNOMED Code(s): 05279437 (4) Hyperlipidemia Current Visit: Yes Status: Chronic Code(s): E78.5 - HYPERLIPIDEMIA, UNSPECIFIED SNOMED Code(s): 93367125 (5) Diabetes mellitus Current Visit: Yes Status: Chronic Code(s): E11.9 - TYPE 2 DIABETES MELLITUS WITHOUT COMPLICATIONS SNOMED Code(s): 00807102 (6) Single kidney Current Visit: Yes Status: Chronic Code(s): Z90.5 - ACQUIRED ABSENCE OF KIDNEY SNOMED Code(s): 253242371 (7) Family history of premature coronary artery disease Current Visit: Yes Status: Chronic Code(s): Z82.49 - FAMILY HX OF [place] HEART DIS AND OTH DIS OF THE CIRC SYS SNOMED Code(s): 911667273 Plan: 1. Continue aspirin, statin, Plavix, losartan, Norvasc, beta katia therapy. Will increase beta katia therapy as tolerated. 2. Encourage incentive spirometry use 10 times every hour while awake. 3. Increase activity as tolerated, ambulate in hallway. PT/OT/cardiac rehab following. 4. Will monitor daily labs and x-rays. Electrolyte replacement per protocol. 5. Insulin management per primary care service. 6. GI prophylaxis with Protonix, DVT prophylaxis with subcu heparin, SCDs. 7. Pain control with current medication regimen. 8. Bronchodilators per pulmonology. 9. Will discharge to home with home care today. 10. More recommendations to follow. Time with Patient: Greater than 30
--- NOTE | 2018-05-18 09:00 | P.PN ---
Subjective Progress Note Date: 05/18/18 Principal diagnosis: Coronary artery bypass grafting, postop day 5 This is a 63-year-old white male, known history of hypertension, dyslipidemia, type 2 diabetes, nonsmoker, nondrinker, strong family history of premature coronary artery disease, known history of GERD and previous Sacha's fundoplication. Patient had previous history of kidney donation to his sister. Over the last couple of months, the patient has been noticing some chest discomfort, and some dyspnea on minimal exertion, which he thought initially could be related to his GERD symptoms coming back. However his symptoms where becoming more frequently, and abating with rest. Patient eventually underwent a full cardiac workup including cardiac catheterization which showed significant left main disease approximately 80% proximal LAD stenosis of 70-80% and 99% stenosis of the proximal left circumflex and 80% stenosis in the midsegment. Mid RCA was 90% stenosed. Considering the findings, patient was referred to cardiac surgery, and he is scheduled to undergo surgery tomorrow. Patient denies any previous pulmonary history, never smoked, has been quite active until the last couple of months when he has been noticing worsening symptoms of dyspnea on exertion and chest discomfort. 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 And he is usually quite active in his job physically. Chest x-ray showed some linear scarring at the right base, unchanged compared to a chest x-ray in 2016. Spirometry showed mild to moderate restriction. Reevaluated today on 05/11/2018, patient just came back to the ICU from his myocardial revascularization. Patient is now on mechanical ventilation, ventilator settings are tidal volume of 550, IMV rate of 14, FiO2 of 100%, and PEEP of 10. ABG and chest x-ray are pending. His peak airway pressure is about 28, plateau pressure is 22. Patient's O2 saturation is 100% on those vent settings. Again x-ray and ABG are pending. Patient is hemodynamically stable, on mechanical ventilation, in no distress. Reevaluated today on 05/12/2018, patient is postoperative day #1. Shortly after I saw the patient yesterday, we noted that his oxygenation has been very poor and marginal. In spite of on the percent FiO2 and a PEEP of 10, his pO2 was very low and marginal. Hence we felt that the patient developed post CABG ARDS., And I have recommended lower tidal volumes, I have also recommended higher PEEP and now the PEEP today is at 16. I have Him on the percent through the night, and titrated FiO2 gradually presently today at 50%, and the PEEP at 16. ABG on those settings about an hour ago showed a pO2 of 101 pCO2 of 40 pH of 7.42. Hence I cut down the PEEP down to 14. And I kept him at 50% FiO2. Patient remains on a relatively low tidal volume of 450, his assist control rate is at 28, and his PEEP is at 14 at present. Chest x-ray is basically unremarkable. His baseline PFT showed some minimal restriction, and again this finding of post CABG ARDS is unexpected. But clearly that's what we are dealing with at present. Discussed his condition many times with different physicians on the case including the cardiac surgeon, and we felt that it would be best to support him at present and continue low tidal volume mode of mechanical ventilation. His peak airway pressure today is 35. His plateau pressure is 25. All labs were reviewed including his electrolytes and renal profile. CBC were all noted to be normal. Patient is hemodynamically stable, and he is on propofol presently at 50 mcg/kg per hour. Reevaluated today on 05/13/2018, patient remains on mechanical ventilation, his postoperative day #2. Patient did develop post CABG ARDS, and we have managed his treatment with low tidal volume mechanical ventilation, high PEEP, steroids , bronchodilators, and I was able to taper down his FiO2 to 50% and in the last 24 hours I was able to taper down his PEEP from 14 last night to 12 to 10 and this morning is down to 8. Patient maintain his excellent O2 saturation, and we have switch him from propofol earlier this morning to Precedex. Patient was given a trial of pressure support of 8 and The PEEP at 8. Patient did extremely well, and his follow-up ABG on that mode of mechanical ventilation for one hour showed excellent oxygenation with a pO2 of 115 pCO2 of 38. PH of 7.45. Hence, and while I was at bedside, patient had weaning parameters, and updated his family members about his condition, patient was noted to be extremely appropriate, following all instructions, endotracheal tube cuff leak test was done, and I proceeded to extubating the patient. Patient was extubated to a high flow nasal cannula at 7 L/m. Reevaluating the patient back and forth while I was in the ICU, and he seemed to tolerate the extubation extremely well. All his labs, medications, chest x-ray were all reviewed. Reevaluated today on 05/14/2018, patient remains in the ICU, he was extubated yesterday, however he continues to require significant amount of oxygen via high flow nasal cannula, presently at 13 L/m. O2 saturation remains marginal in the low 90s. The chest x-ray is showing evidence of atelectasis and interstitial edema with bilateral pleural effusions, hence I recommended a small dose of Lasix 20 mg IV push to be given this morning. Patient is able to do well with incentive spirometry, he does have some productive cough, and his sputum was sent for cultures. No evidence of leukocytosis, hemoglobin is 9.5. His basic metabolic profile is normal and renal profile is normal. Creatinine is 0.88. Patient remains to have hypertension, and he is on Klonopin exit drip. Chest tubes and his Princeton-Gayle catheter was discontinued yesterday Reevaluated today on 05/15/2018, remains in the ICU, still requiring high flow O2 via nasal cannula, he is presently on 10 L/m O2 flow, and his O2 saturation is in the low 90s. Clinically however the patient is feeling much better, breathing a lot easier. I reviewed the Chest x-ray showed small tiny pleural effusions and bibasilar atelectasis. I reviewed all his labs including CBC, basic metabolic profile, renal profile, liver profile, and they seem to be relatively normal. Patient remains hemodynamically stable, still requiring clever Prax for elevated blood pressure, and he was started today on oral Norvasc. At this point considering the patient is still requiring a high flow nasal cannula, I believe the patient should remain in the ICU. I did cut down the dose of his steroids yesterday, and he could be basically switch to oral prednisone tomorrow burst and taper On 05/16/2018 patient seen again in the intensive care unit. He is awake and alert, sitting up in the recliner, in no acute distress, he is currently on 2 L per nasal cannula, and his pulse ox is 91-92%, denies any respiratory distress, is working on his incentive spirometry, he diabetes mellitus postop day 5 status post four-vessel bypass grafting. Today's chest x-ray has been reviewed by Dr. Orr, small bilateral effusions were noted, with a pseudotumor in the right lung. No IV drips, no IVs. His labs have been reviewed, the CBC 7.8, hemoglobin is 9.6, sodium is 143, potassium is 4.8, chloride is 109, BUN is 34 creatinine 0.89. Lung sounds were clear, diminished at the bases, no wheezing no rhonchi noted, we can stop the IV Solu-Medrol. Sinus rhythm on the monitor with a controlled rate, hemodynamically stable. On 05/17/2018 patient seen in follow-up in the intensive care unit, he is awake and alert, oriented 3, no acute distress, room air pulse ox is 92%, lung sounds are clear to auscultation, pain is well controlled, vital signs are stable, no IV drips, patient has been hep-locked, this is postop day 5 three- vessel coronary artery bypass grafting, today's chest x-ray has been reviewed by Dr. Garcia, and showed tiny bilateral pleural effusions, that are stable in appearance, and some adjacent atelectasis. No other acute findings. And on his incentive spirometry, ambulating, today's labs have been reviewed. Patient is doing well, anticipate discharge home today. On 05/18/2018 patient seen again in follow-up in the intensive care unit, his awake and alert, in no acute distress, today's chest x-ray was reviewed by Dr. Orr, stable bilateral consolidation and pleural effusion were noted. Room air pulse ox is 94%, today's labs were reviewed. Vital signs are stable. No maintenance IV fluids or drips. Incentive spirometry effort is 1750 ML today. Sounds are positive for some few bibasilar crackles, diminished breath sounds. Tolerating ambulation Objective - Vital Signs Vital signs: Vital Signs Temp 97.8 F 05/18/18 08:00 Pulse 88 05/18/18 08:11 Resp 16 05/18/18 08:00 BP 156/95 05/18/18 08:00 Pulse Ox 94 L 05/18/18 08:01 Intake & Output 05/17/18 05/18/18 05/18/18 18:59 06:59 18:59 Output Total 1650 1075 Balance -1650 -1075 Output: Urine 1650 1075 Other: Voiding Method Toilet Urinal # Voids 2 ABP, PAP, CO, CI - Last Documented Arterial Blood Pressure 164/67 Pulmonary Artery Pressure 34/19 Cardiac Output 9.8 Cardiac Index 4.6 - Exam Physical Exam: 63-year-old white male on a bedside recliner, room air Head: Atraumatic, normocephalic, HEENT:[Neck is supple.] [No neck masses.] [No thyromegaly.] [No JVD.] Upper lip remains a bit swollen from trauma from endotracheal tube Chest: [Symmetrical chest expansion, diminished breath sounds at the bases, a few bibasilar crackles Cardiac Exam: [Normal S1 and S2, no S3 gallop, no murmur. Abdomen: [Obese, Soft, nontender, no megaly, no rebound, no guarding, normal bowel sounds.] Extremities: [No clubbing, no edema, no cyanosis. Both lower extremities are wrapped with Orion wraps.] Neurological Exam: Alert oriented 3, no gross focal neurologic deficit Psychiatric: Normal mood, affect, and mental status examination. Skin: No rashes - Labs CBC & Chem 7: 05/18/18 04:27 05/18/18 04:27 Labs: Abnormal Lab Results - Last 24 Hours (Table) 05/17/18 05/17/18 05/17/18 Range/Units 12:13 16:54 20:20 RBC (4.30-5.90) m/uL Hgb (13.0-17.5) gm/dL Hct (39.0-53.0) % Carbon Dioxide (22-30) mmol/L BUN (9-20) mg/dL Glucose (74-99) mg/dL POC Glucose (mg/dL) 114 H 146 H 212 H (75-99) mg/dL Total Protein (6.3-8.2) g/dL 05/18/18 05/18/18 05/18/18 Range/Units 04:27 04:27 06:47 RBC 3.98 L (4.30-5.90) m/uL Hgb 10.9 L (13.0-17.5) gm/dL Hct 34.7 L (39.0-53.0) % Carbon Dioxide 31 H (22-30) mmol/L BUN 30 H (9-20) mg/dL Glucose 121 H (74-99) mg/dL POC Glucose (mg/dL) 112 H (75-99) mg/dL Total Protein 6.1 L (6.3-8.2) g/dL Assessment and Plan Plan: 1 triple-vessel coronary artery disease, with left main coronary artery disease , patient is status post CABG, postoperative day # 6 patient was extubated on , still requiring high flow O2. Presently at 2 L/m, was on 13 L/m yesterday. 2 post CABG ARDS, postoperative hypoxic respiratory failure, unexpected quite severe initially, required initially high PEEP, the PEEP was as high as 16, and FiO2 at 100% initially, eventually we were able to titrate down the FiO2, to 50% , and later went down to a PEEP of 8 gradually, and I was able to extubate the patient on 05/13/2018. However he remains on a high flow nasal cannula. 3 benign essential hypertension 4 type 2 diabetes 5 single kidney, renal profile seems to be normal today to 6 family history of premature coronary artery disease. 7 postoperative hypoxic respiratory failure secondary to ARDS, unexpected and being addressed accordingly. 8 postoperative basilar atelectasis as expected, no evidence of congestive heart failure today. This is based on the chest x-ray which I reviewed myself. Plan: Today's chest x-ray has been reviewed by Dr. Orr, shows stable findings of bilateral plural effusions, and adjacent atelectasis, room air pulse ox is 94%, patient is tolerating ambulation, no acute distress, no events overnight. Likely discharge home today. Continue to follow I performed a history & physical examination of the patient and discussed their management with my nurse practitioner, Omaira Mcmanus. I reviewed the nurse practitioner's note and agree with the documented findings and plan of care. Lung sounds are clear. The findings and the impression was discussed with the patient. I attest to the documentation by the nurse practitioner. Time with Patient: Less than 30
[2018-05-18] MEDS ORDERED: FUROSEMIDE 20 MG TAB PO SCH (09:45)
--- NOTE | 2018-05-18 10:28 | P.VSCSTY ---
Greater Saphenous Vein Mapping This is bilateral lower extremity greater saphenous vein mapping. Date of service 05/10/2018 Vein quality and ultrasound appearance no intraluminal thrombus or wall changes are seen. Vein size groin right 7.4 x 7.7 groin left 4.8 x 4.7 High thigh right 5.6 x 5.2 high thigh left 4.7 x 4.6 Mid thigh right 4.4 x 4.1 mid thigh left 4.4 x 4.3 Above-knee right 4.4 x 4.2 above- knee left 5.8 x 4.3 Below knee right 4.8 x 3.7 below-knee left 4.0 x 3.4 Mid calf right 3.0 x 2.9 mid calf left 3.4 x 2.6 Ankle right 3.0 x 3.4 ankle left 3.4 x 3.3 Impression usable bilateral greater saphenous vein.
--- NOTE | 2018-05-18 10:30 | P.ARTDOP ---
Arterial Doppler Bilateral radial artery studies: Reason for studies: Preop CABG Date of study: 05/10/2018 Doppler evaluation show no significant right to left or segmental pressure gradients. Digital plethysmography with radial artery compression show no significant pressure changes on the right and a marginal but significant pressure gradient on the left of 41 mmHg. Imaging shows the right radial to be between 4.0 x 3.5 and 5.8 x 5.9. The left radial is between 4.0 x 3.5 and 4.7 x 4.4 On size criteria in both radial arteries are usable. Right radial artery appears to be satisfactory in regards to collateral flow. Left would be marginal. Clinical correlation recommended.
--- NOTE | 2018-05-18 10:31 | P.ARTDOP ---
Arterial Doppler LOWER EXTREMITY ARTERIAL DOPPLER: DATE OF SERVICE: 05/09/2018 Reason for study: Preop CABG. Doppler waveforms: Multiphasic bilaterally throughout. Pulse volume recording: []. Pressure gradients: None. Ankle-brachial indices: Greater than 1 bilaterally. Toe pressures: [] on the right, [] on the left Impression: Normal study.
[2018-05-18 11:30] LABS: Glucose,Whole Blood 97 mg/dL (75-99)
--- NOTE | 2018-05-18 12:13 | P.DS ---
Providers Date of admission: 05/09/18 11:59 Expected date of discharge: 05/18/18 Attending physician: Darshan Butler Consults: 05/09/18 12:15 Consult Physician Routine Consulting Provider: Thaddeus Heck Consult Reason/Comments: cabg Do you want consulting provider notified?: Already Contacted Consult Physician Routine Consulting Provider: Lauren Johnson Consult Reason/Comments: dm Do you want consulting provider notified?: Yes 05/09/18 14:33 Consult Physician Routine Consulting Provider: Evon Rodriguez Consult Reason/Comments: preop cabg Do you want consulting provider notified?: Yes Consult to Anesthesia Routine Consulting Provider: Anesthesia,Services Consult Reason/Comments: Cardiac Surgery Pre-Op 05/11/18 15:31 Consult Physician Routine Consulting Provider: Socrates Fernandez Consult Reason/Comments: [employer] Consult: post cardiac surgery Do you want consulting provider notified?: Already Contacted Primary care physician: Hector Lazo - Discharge Diagnosis(es) (1) Coronary artery disease Current Visit: Yes Status: Chronic (2) Left main coronary artery disease Current Visit: Yes Status: Chronic (3) Hypertension Current Visit: Yes Status: Chronic (4) Hyperlipidemia Current Visit: Yes Status: Chronic (5) Diabetes mellitus Current Visit: Yes Status: Chronic (6) Single kidney Current Visit: Yes Status: Chronic (7) Family history of premature coronary artery disease Current Visit: Yes Status: Chronic Hospital Course: FINAL DIAGNOSIS: 1. Left main disease with severe triple vessel coronary artery disease, overall preserved left ventricular function 2. Hypertension 3. Hyperlipidemia 4. Diabetes with preoperative hemoglobin A1c 7% 5. Obesity 6. Never smoker 7. Mild COPD with preoperative FEV1 64% predicted 8. GERD 9. Family history of premature coronary artery disease 10. 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 Postoperative hypoxic respiratory failure, possible acute lung injury of unknown etiology, prolonged mechanical ventilation PRINCIPAL PROCEDURE: 1. Urgent quadruple coronary artery bypass grafting using the left internal mammary artery sequentially to the diagonal artery, then to the left anterior descending artery, reverse saphenous vein graft from the aorta to the posterior descending artery, reverse saphenous vein graft from the aorta to the high obtuse marginal artery 2. Endoscopic harvesting of the right greater saphenous vein 3. Intraoperative transesophageal echocardiogram 4. Epi-aortic scanning 5. Intraoperative graft flow measurements using the [employer] system HISTORY OF PRESENT ILLNESS: This is a 63-year-old active gentleman who follows on an outpatient basis with Dr. Lazo. Apparently since the middle of February he had been noticing increasing chest discomfort and exertional dyspnea exacerbated by the cold weather. He described this discomfort is similar to previous GERD attacks but this time it happened with exertion. He also complained of nausea but denied any other symptoms. The attacks were coming more frequently and were not abating with rest. In addition he began to have decreased exercise tolerance. He had a visit with his primary care physician who ordered a dobutamine stress echo, the echo portion was normal with no wall motion abnormalities, however the EKG portion was abnormal and he was referred to Dr. Fernandez from cardiology. He had a transthoracic echocardiogram completed in Dr. Fernandez's office demonstrating normal left ventricular function with an ejection fraction 55%, mild mitral regurgitation, and mild tricuspid regurgitation. He was recommended to undergo heart catheterization which demonstrated left main disease approximated 80% at the bifurcation, proximal LAD stenosis 70-80%, 99% stenosis to the proximal left circumflex and 80% stenosis in the midsegment, and mid RCA stenosis 90% with 70-80% stenosis in the distal segment.. The patient was referred to Dr. Heck from cardiothoracic surgery. He was recommended to undergo urgent coronary artery bypass grafting. The usual perioperative course was discussed in detail with the patient and his family, all risks and benefits were explained, all questions were answered, and consent was obtained to proceed with surgery. He was kept inpatient due to the nature of his disease. HOSPITAL COURSE: The patient was brought to the preoperative area on 05/11/2018 , prepared in the usual fashion, and subsequently taken to the operating room where Dr. Butler performed urgent quadruple coronary artery bypass grafting using the left internal mammary artery sequentially to the diagonal artery, then to the left anterior descending artery, reverse saphenous vein graft from the aorta to the posterior descending artery, reverse saphenous vein graft from the aorta to the high obtuse marginal artery, endoscopic harvesting of the right greater saphenous vein, intraoperative transesophageal echocardiogram, epi -aortic scanning, and intraoperative graft flow measurements using the [employer] system. Upon completion of surgery the patient was transferred to the cardiovascular intensive care unit where he was recovered, monitored hemodynamically, and where he progressed to cardiac rehabilitation phase 1. He expressed postoperative hypoxic respiratory failure requiring prolonged mechanical ventilation but eventually was extubated, all lines, tubes, and drips were discontinued when appropriate, and transferred orders were placed for 3 S. cardiac stepdown unit, however there was no bed availability and the patient remained in the intensive care unit until discharge as an overflow patient. His oxygen was titrated down, he continued to work with physical and occupational therapy, he was tolerating oral diet, his pain was controlled, and he was ready to be discharged to home with [facility] on postoperative day #7. He received written and verbal instruction regarding his medications, activity restrictions, signs and symptoms requiring physician notification, and follow-up appointments. COMPLICATIONS: The patient experienced postoperative hypoxic respiratory failure , possible acute lung injury, and prolonged mechanical ventilation, all which were treated accordingly. Patient Condition at Discharge: Stable Plan - Discharge Summary Discharge Rx Participant: No New Discharge Prescriptions: New amLODIPine [Norvasc] 5 mg PO BID #60 tab Aspirin 325 mg PO DAILY #30 tab Atorvastatin [Lipitor] 40 mg PO DAILY #30 tab Clopidogrel [Plavix] 75 mg PO DAILY #30 tab Furosemide [Lasix] 20 mg PO DAILY #14 tab HYDROcodone/APAP 7.5-325MG [Putney 7.5-325] 1 each PO Q4H PRN #42 tab PRN Reason: Pain SCALE 1-5 Insulin Aspart [NovoLOG (formulary)] 3 unit SQ AC-TID 30 Days #1 vial Insulin Detemir [Levemir] 20 unit SQ HS 30 Days #1 syr Melatonin 6 mg PO HS tablet Metoprolol Tartrate [Lopressor] 75 mg PO BID #180 tab Pantoprazole [Protonix] 40 mg PO AC-BRKFST #30 tablet.dr Hare-Docusate Sodium [Senokot-S] 2 each PO HS PRN tab PRN Reason: Constipation Continue Glimepiride [Amaryl] 2 mg PO DAILY #30 tab Losartan Potassium 100 mg PO DAILY #30 tablet metFORMIN HCL 1,000 mg PO BID #60 tablet Discontinued Ezetimibe/Simvastatin [Vytorin 10-40 mg Tablet] 1 tab PO DAILY Metoprolol Tartrate [Lopressor] 25 mg PO BID Isosorbide Mononitrate ER [Imdur] 30 mg PO QAM Aspirin [Adult Low Dose Aspirin EC] 81 mg PO QAM Discharge Medication List Aspirin 325 mg PO DAILY #30 tab 05/18/18 [Rx] Atorvastatin [Lipitor] 40 mg PO DAILY #30 tab 05/18/18 [Rx] Clopidogrel [Plavix] 75 mg PO DAILY #30 tab 05/18/18 [Rx] Furosemide [Lasix] 20 mg PO DAILY #14 tab 05/18/18 [Rx] Glimepiride [Amaryl] 2 mg PO DAILY #30 tab 05/18/18 [Rx] HYDROcodone/APAP 7.5-325MG [Putney 7.5-325] 1 each PO Q4H PRN #42 tab 05/18/18 [ Rx] Insulin Aspart [NovoLOG (formulary)] 3 unit SQ AC-TID 30 Days #1 vial 05/18/18 [ Rx] Insulin Detemir [Levemir] 20 unit SQ HS 30 Days #1 syr 05/18/18 [Rx] Losartan Potassium 100 mg PO DAILY #30 tablet 05/18/18 [Rx] Melatonin 6 mg PO HS tablet 05/18/18 [Rx] Metoprolol Tartrate [Lopressor] 75 mg PO BID #180 tab 05/18/18 [Rx] Pantoprazole [Protonix] 40 mg PO AC-BRKFST #30 tablet.dr 05/18/18 [Rx] Sennosides-Docusate Sodium [Senokot-S] 2 each PO HS PRN tab 05/18/18 [Rx] amLODIPine [Norvasc] 5 mg PO BID #60 tab 05/18/18 [Rx] metFORMIN HCL 1,000 mg PO BID #60 tablet 05/18/18 [Rx] Follow up Appointment(s)/Referral(s): Evon Rodriguez MD [STAFF PHYSICIAN] - 06/17/18 1:45 pm Keerthi Cali NPC [Nurse Practitioner] - 05/20/18 1:00 pm [facility], [NON-STAFF] - Socrates Fernandez MD [STAFF PHYSICIAN] - 2 Weeks (Office will call with appointment time) Darshan Butler MD [STAFF PHYSICIAN] - 06/10/18 10:45 am Hector Lazo MD [Primary Care Provider] - 05/26/18 10:30 am (Will see Caty nurse practitioner) Ambulatory/Diagnostic Orders: Complete Blood Count w/diff [LAB.AMB] Time Frame: 3 Days, Location: None Selected Comprehensive Metabolic Panel [LAB.AMB] Time Frame: 3 Days, Location: None Selected Activity/Diet/Wound Care/Special Instructions: DISCHARGE INSTRUCTIONS: 1. No driving for 4 weeks, or until physician gives their ok. 2. The patient should sleep in their own bed, no medical bed needed. 3. Stairs are not an issue. If the bedroom is upstairs, it is advised that the patient go up at night and down in the morning for the first week. Go slowly, using handrail and take 1 step at a time. 4. MEENA hose are to be worn for 30 days or until physician discontinues. 5. Heart hugger is to be worn 100% of the time until physician discontinues.( except when showering) 6. No lifting, pushing, or pulling more than 10 pounds for 12 weeks. The physician will advise of any restriction changes. 7. The patient is expected to continue the prescribed walking program. 8. Continue pain control per as needed orders. 9. Continue with incentive spirometry and splinting/heart hugger until otherwise directed by the physician. 10. Must shower daily using liquid antibacterial soap and a separate white washcloth for each individual incision. 11. Routine sternal incision care. No powders, lotions, ointments on incisions. 12. Please call surgeon/HOSE SPRAYER for temp greater than 101 F or purulent drainage from incisions. 13. Narcotic medications were discussed with the patient, including the potential for misuse, addiction, and abuse. Opiod Start Talking form was reviewed with the patient. 14. All prescriptions given by surgeon for 30 days. Refills need to be filled through credit card clerk/primary care physician. 15. A Red armband has been placed on the patient. It should be worn for 30 days post surgery and will be removed by the cardiac surgeons. If an ER visit is necessary, please make sure the number on the Red armband is called. HOME HEALTH SERVICES TO PROVIDE: RN SKILLED HOME CARE SERVICES FOR POST-OP SURGICAL PATIENTS WITH THE FOLLOWING: Coronary Artery Bypass Surgery (CABG), Mitral Valve Replacement/ Repair ( MVR), Aortic Valve Replacement/Repair (AVR) RN TO CONTINUE EDUCATION FROM ``ROAD TO A HEALTH HEART PATIENT EDUCATION MANUAL (GIVEN TO PATIENT IN THE HOSPITAL) MEDICATION RECONCILIATION WITH EDUCATION NEEDED ON FIRST HOME VISIT EMPHASIZE IMPORTANCE OF WEARING BREAST SUPPORT/HEART HUGGER ENCOURAGE USE OF INCENTIVE SPIROMETER 10 X EVERY HOUR WHILE AWAKE ENCOURAGE UTILIZATION OF LOWER EXTREMITY COMPRESSION STOCKINGS/MEENA HOSE and ELEVATE LEGS ABOVE LEVEL OF HEART WHILE AT REST. ENCOURAGE AMBULATION 3-5x/day INCREASING TOLERATES, WHILE AVOID EXTREMES IN TEMPERATURE FREQUENCY: RN TO OPEN THE PATIENT WITHIN 24 HOURS OF DISCHARGE FROM THE HOSPITAL WITH TELEHEALTH INSTALLED AT [facility], RN TO VISIT 2-3 X A WEEK FOR 4 WEEKS ESTABLISHED BY PATIENT NEEDS. LABORATORY: CBC, CMP TO BE DRAWN ON THE THIRD DAY HOME, 05/21/18, (RAN STAT) FAX RESULTS TO [phone]. TELEHEALTH PARAMETERS: WEIGHT: NOTIFY MD OF WEIGHT GAIN OF 2 LBS IN 24 HOURS OR 5 LBS IN ONE WEEK HR: NOTIFY MD OF HR <55 BPM OR HR>100 BPM BP: NOTIFY MD IF BP <90/55 OR BP>140/100 O2 SAT: NOTIFY MD IF PO2<93% ON ROOM AIR SEND TELEHEALTH REPORT TO [employer] AND CARDIOVASCULAR SURGEON THE FIRST WEEK OF CARE AND THEN BI-WEEKLY. PLEASE ADDITIONALLY COMMUNICATE ANY ABNORMALS AND NEW FINDINGS TO THE SURGEONS OFFICE. Discharge Disposition: HOME WITH HOME HEALTH SERVICES
--- NOTE | 2018-05-18 12:57 | PN ---
PROGRESS NOTE Mr. Kumar is in sinus rhythm. He is slightly hypertensive. He is doing well, recovering nicely, bringing up more than 1200 mL on the incentive spirometry. Remains in sinus rhythm, S1-S2 heard normally. Lungs revealed decent air entry. Abdomen and lower extremity exam unchanged. His oxygenation is somewhat low. He may be able to be discharged on oxygen. However, I am recommending that we add hydralazine 50 mg b.i.d. to optimize his blood pressure control. All his other medications will be the same. We will continue incentive spirometry aggressively. MMODL / IJN: [id number] /
--- NOTE | 2018-05-18 14:11 | P.PN ---
Subjective Progress Note Date: 05/18/18 This is a 63-year-old male one of Dr. 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, hyperlipidemia, diabetes mellitus type 2, GERD status post Sacha fundoplication, and history of premature coronary artery disease patient has been having significant effort to dyspnea with chest discomfort especially in the cold weather initially was getting better with rest and eventually did not get better after arrest he ended up seeing his primary care physician sent him for a dobutamine stress echo Dayco portion was normal however the patient the EKG portion was abnormal ended up seeing cardiology underwent left heart catheterization that showed a distal left main disease 70% as well as triple-vessel disease including the left anterior descending coronary artery with 70% left circumflex 99% and RCA 80%, he was seen in consultation by Pavel neal surgery scheduled to go for open heart surgery tomorrow morning. 05/12: On May 11, patient underwent urgent quadruple coronary artery bypass grafting using the left internal mammary artery to the diagonal artery, then to the left anterior descending artery, reverse saphenous vein graft from the aorta to the posterior descending artery, reverse saphenous vein graft from the aorta to the high obtuse marginal artery. Patient remains intubated and on mechanical ventilation with tidal volume 450, FiO2 50 and PEEP of 16. Plan is to possibly wean this afternoon. Hannon catheter is in place with good urine output. In swollen drip is in place and blood sugars are running between 121 - 148. Chest tubes, right sided Cordis in place. 05/13: Patient was extubated late this morning. He denies having any sore throat, headache. He does have edema to the lips. His urine output is running 25-40 mL per hour. He complains of feeling tired. His surgical pain is controlled. He remains on insulin drip with blood sugars running 121-194. Plan will be to continue insulin drip for another 24 hours. 05/14 patient remains in ICu, conversational dyspnea noted, has 10l o2 NC, no urinary difficulties no chest pain, patient requirs a total of 165 units of insulin x 24 hrs, patient currently on solumedrol 40q 8 hrs, and will be switched to novolog 14 units premeal starting dinner and levemir at 30 units at hs. this is half of his current requirments but solumedrol was recently decreased. appetite is marginal but ok 75 % of meal. insulin drip will be discontinued after dinner meal tonight 05/15. patient is less dypneic stsill requiring O2 10 l nc, atelectasis on cxr and small pleural effesuion, no significant edema. patient is currently ambulating had gone around the hallway with o2, pulse ox dips to 79%. no chest pain on ambulation. no light headedness, pulse ox quicklhy picks up to 94% upon resting 4-5 seconds later. 05/16: Patient remains in the intensive care unit. Blood sugars are running between 105 and 170. bicycle courier requested regarding insulin management. Patient is currently on 2 L nasal cannula pulse oxing 91-92%. He states his breathing status is improved. He has been started on IV Solu-Medrol by pulmonary medicine. No current chest pain. Hemoglobin 9.3. 05/17: Blood sugar at bedtime last night was 244. Patient is off IV Solu- Medrol. Scheduled NovoLog added at 10 units with breakfast, 8 units with lunch and 6 units with supper along with Levemir 35 units at bedtime. Morning blood sugar was 74 and insulins will be adjusted to the following: Levemir 20 units at bedtime, NovoLog 3 units with meals and scale. At the time of discharge patient continue the scheduled Levemir and scheduled NovoLog. Pulse ox is 94% on 2 L nasal cannula but he states he dropped to 74% with ambulation.. 05/18: Patient is scheduled for discharge today. He is using incentive spirometry of 1500 ML's. He is not requiring home oxygen at this point. Diabetic oral agents will be discontinued for home and patient will be discharged on Levemir 20 units at bedtime and NovoLog 3 units 3 times daily with meals. Review of Systems Constitutional: Denies chronic headaches, Denies fever, Denies weakness, Denies weight gain, denies fatigue Eyes: denies blurred vision, denies bulging eye, denies decreased vision, denies diplopia, denies discharge Ears, nose, mouth and throat: Denies dental pain, Denies neck lump, Denies sore throat Cardiovascular: Denies chest pain, Reports decreased exercise tolerance, Reports dyspnea on exertion, Reports high blood pressure, Reports shortness of breath, Denies syncope Respiratory: Denies congestion, Denies cough with sputum, Denies home oxygen, Denies sleep apnea, Denies snoring, Denies wheezing Gastrointestinal: Denies abdominal pain, Denies heartburn, Denies melena, Denies nausea, Denies vomiting Genitourinary: Denies dysuria, Denies nocturia, Denies polyuria Musculoskeletal: Denies myalgias Musculoskeletal: absent: ankle pain, ankle stiffness, ankle swelling, elbow pain , elbow stiffness, elbow swelling, foot pain, foot stiffness, foot swelling, hand pain, hand stiffness, hand swelling, hip pain, hip stiffness, hip swelling , knee pain, knee stiffness, knee swelling, shoulder pain, shoulder stiffness, shoulder swelling, wrist pain, wrist stiffness, wrist swelling Integumentary: Denies pruritus, Denies rash Neurological: Denies numbness, Denies weakness Psychiatric: Denies anxiety, Denies depression Endocrine: Denies fatigue, Denies weight change Objective - Vital Signs Vital signs: Vital Signs Temp 97.8 F 05/18/18 08:00 Pulse 88 05/18/18 08:11 Resp 16 05/18/18 08:00 BP 156/95 05/18/18 08:00 Pulse Ox 94 L 05/18/18 08:01 Intake & Output 05/17/18 05/18/18 05/18/18 18:59 06:59 18:59 Intake Total 400 Output Total 1650 1075 300 Balance -1650 -1075 100 Intake: Oral 400 Output: Urine 1650 1075 300 Other: Voiding Method Toilet Urinal # Voids 2 ABP, PAP, CO, CI - Last Documented Arterial Blood Pressure 164/67 Pulmonary Artery Pressure 34/19 Cardiac Output 9.8 Cardiac Index 4.6 - Exam General appearance: average body habitus, no acute distress. Patient is sitting in a recliner and appears to be comfortable and in no distress. Patient is off oxygen. - EENT Eyes: anicteric sclerae, EOMI, PERRLA, no ptosis, no scleral icterus, normal appearance ENT: hearing grossly normal, NA/AT, normal oropharynx Ears: bilateral: normal - Neck Neck: no lymphadenopathy, normal ROM, no rigidity, no stridor, no thyromegaly Carotids: bilateral: upstroke normal Thyroid: bilateral: normal size - Respiratory Respiratory: bilateral: diminished, negative: dullness, rales, rhonchi, wheezing , prolonged expiration, prolonged inspiration - Cardiovascular Rhythm: regular Heart sounds: normal: S1, S2 Abnormal Heart Sounds: no systolic murmur, no S3 Gallop, no S4 Gallop - Gastrointestinal General gastrointestinal: normal bowel sounds, soft, no splenomegaly, no tenderness, no umbilical hernia - Integumentary Integumentary: normal, normal turgor - Neurologic Neurologic: CNII-XII intact - Musculoskeletal Musculoskeletal: strength equal bilaterally - Psychiatric Psychiatric: Normal affect, alert and oriented 3 - Labs CBC & Chem 7: 05/18/18 04:27 05/18/18 04:27 Labs: Abnormal Lab Results - Last 24 Hours (Table) 05/17/18 05/17/18 05/17/18 Range/Units 12:13 16:54 20:20 RBC (4.30-5.90) m/uL Hgb (13.0-17.5) gm/dL Hct (39.0-53.0) % Carbon Dioxide (22-30) mmol/L BUN (9-20) mg/dL Glucose (74-99) mg/dL POC Glucose (mg/dL) 114 H 146 H 212 H (75-99) mg/dL Total Protein (6.3-8.2) g/dL 05/18/18 05/18/18 05/18/18 Range/Units 04:27 04:27 06:47 RBC 3.98 L (4.30-5.90) m/uL Hgb 10.9 L (13.0-17.5) gm/dL Hct 34.7 L (39.0-53.0) % Carbon Dioxide 31 H (22-30) mmol/L BUN 30 H (9-20) mg/dL Glucose 121 H (74-99) mg/dL POC Glucose (mg/dL) 112 H (75-99) mg/dL Total Protein 6.1 L (6.3-8.2) g/dL Assessment and Plan Plan: 1. Distal left main disease with triple-vessel coronary artery disease status post urgent quadruple coronary artery bypass grafting using the left internal mammary artery to the diagonal artery, then to the left anterior descending artery, reverse saphenous vein graft from the aorta to the posterior descending artery, reverse saphenous vein graft from the aorta to the high obtuse marginal artery. Continue plan per cardiothoracic surgery team. Continue aspirin 325 mg daily, Lipitor 40 mg daily, Plavix 75 mg daily, Lopressor 50 mg twice daily. Solu-Medrol discontinued. 2. Hypertension and hypertensive cardiovascular disease. Continue Lopressor 25 mg orally twice every day. 3. Hyperlipidemia. Continue Lipitor 40 mg orally once every day. 4. Diabetes mellitus type 2. Insulin is adjusted to Levemir 20 units at bedtime and NovoLog 3 units scheduled with meals. 5. Acute hypoxic respiratory failure requiring high flow oxygen. Continue incentive spirometry and IV diuretics prn. 6. DVT prophylaxis. Continue knee-high MEENA hose and SCDs. 7. GI prophylaxis. Continue PPI. Full code. Discharge plan: Return home with [facility] Impression and plan of care have been directed as dictated by the signing physician. Haydee Langston nurse practitioner acting as scribe for signing physician.
[2018-05-18 16:05] VITALS: BP 136/74; PULSE 85
--- NOTE | 2018-05-19 12:36 | CDI ---
Documentation Clarification Form Date: 05/19/18 From: Betzy Higinio Ginger Gomez, [employer] Hours-8:30 am & 5 pm M-F Admit Date: 05/09/2018 11:59:00 AM Patient Name: Jai Kumar Visit Number: [id number] Discharge Date: 05/18/2018 5:35:00 PM ATTENTION: The Clinical Documentation Specialists (CDI) and [facility] Coding Staff appreciate your assistance in clarifying documentation. Please respond to the clarification below the line at the bottom and electronically sign. The CDI & [facility] Coding staff will review the response and follow-up if needed. Please note: Queries are made part of the Legal Health Record. If you have any questions, please contact the author of this message via ITS. Dr. Evon Rodriguez Diastolic CHF is documented in the 05/14 PN. History/Risk Factors: CABG x 4, resp failure, HTN, COPD VS/Pulse OX: 05/14-P-72, R-25, BP-153/62, O2 sat 97-94 on NC 13 L BNP: none Chest X Ray: 05/12- residual atelectasis, possible degree of mild volume overload, probable small basilar effusion and atelectasis vs edema. 05/13- bilateral areas of consolidation and pleural effusion appearing to be stable. Treatment: IV Lasix 20 mg push times one In your professional opinion, can you please clarify the acuity of CHF if known? Acute Chronic Acute on Chronic Unable to Determine Other, please specify MTDD
--- NOTE | 2018-05-23 11:34 | P.PN ---
Progress Note - Text Progress Note Date: 05/23/18 the possibility of acute diastolic congestive heart failure was suspected but not confirmed. likely was not present .This note was done for documentation clarification
== END 2018-05-18 17:35 | disposition home health service (06) | DRG 233 ==
LOC: CATHCVL 07:29 → 3SCARD 11:59 → 2SICU 16:48
PROVIDERS: ADMIT Surgery; ATTEND Surgery
PROC: 4A023N7 Measurement of Cardiac Sampling and Pressure, Left Heart, Percutaneous Approach (ICD-10-PCS; 2018-05-09)
PROC: B2111ZZ Fluoroscopy of Multiple Coronary Arteries using Low Osmolar Contrast (ICD-10-PCS; 2018-05-09)
PROC: B2151ZZ Fluoroscopy of Left Heart using Low Osmolar Contrast (ICD-10-PCS; 2018-05-09)
PROC: B44HZZZ Ultrasonography of Bilateral Lower Extremity Arteries (ICD-10-PCS; 2018-05-10)
PROC: B34KZZZ Ultrasonography of Bilateral Upper Extremity Arteries (ICD-10-PCS; 2018-05-10)
PROC: 03B00ZZ Excision of Right Internal Mammary Artery, Open Approach (ICD-10-PCS; 2018-05-11)
PROC: 06BP4ZZ Excision of Right Saphenous Vein, Percutaneous Endoscopic Approach (ICD-10-PCS; 2018-05-11)
PROC: B246ZZ4 Ultrasonography of Right and Left Heart, Transesophageal (ICD-10-PCS; 2018-05-11)
PROC: 5A1221Z Performance of Cardiac Output, Continuous (ICD-10-PCS; 2018-05-11)
PROC: 4A1305C Monitoring of Arterial Flow, Coronary, Open Approach (ICD-10-PCS; 2018-05-11)
PROC: 5A1945Z Respiratory Ventilation, 24-96 Consecutive Hours (ICD-10-PCS; 2018-05-11)
PROC: 0211093 Bypass Coronary Artery, Two Arteries from Coronary Artery with Autologous Venous Tissue, Open Approach (ICD-10-PCS; principal; 2018-05-11 08:00)
PROC: 02110Z9 Bypass Coronary Artery, Two Arteries from Left Internal Mammary, Open Approach (ICD-10-PCS; 2018-05-11 08:00)
DX: I25.10 Atherosclerotic heart disease of native coronary artery without angina pectoris (principal); J80 Acute respiratory distress syndrome; J95.821 Acute postprocedural respiratory failure; J98.11 Atelectasis; I08.1 Rheumatic disorders of both mitral and tricuspid valves; I11.9 Hypertensive heart disease without heart failure; E11.9 Type 2 diabetes mellitus without complications; E78.5 Hyperlipidemia, unspecified; J44.9 Chronic obstructive pulmonary disease, unspecified; K21.9 Gastro-esophageal reflux disease without esophagitis; M19.90 Unspecified osteoarthritis, unspecified site; R31.9 Hematuria, unspecified; E66.9 Obesity, unspecified; Z68.33 Body mass index [BMI] 33.0-33.9, adult; Z79.82 Long term (current) use of aspirin; Z79.84 Long term (current) use of oral hypoglycemic drugs; Z79.899 Other long term (current) drug therapy; Z52.4 Kidney donor; Z82.49 Family history of ischemic heart disease and other diseases of the circulatory system; Z84.1 Family history of disorders of kidney and ureter
CPT/HCPCS: 36600; 71045; 71046; 80048; 80053; 80061; 80074; 81003; 82330; 82805; 83036; 83735; 84100; 84443; 85025; 85027; 85520; 85610; 85730; 86850; 86891; 86900; 86901; 86920; 87070; 87086; 87205; 93458; 93880; 93922; 93923; 93930; 93970; 94002; 94003; 94150; 94640

== ENCOUNTER → 2018-05-28 | Outpatient (CLI) | payer BC ==
--- NOTE | 2018-05-28 13:45 | XR ---
EXAMINATION TYPE: XR chest 2V DATE OF EXAM: 05/28/2018 COMPARISON: 05/18/2018 INDICATION: Pleural effusion post CABG cough pain TECHNIQUE: Frontal and lateral views of the chest are obtained. FINDINGS: The heart size is normal. The pulmonary vasculature is normal. Some atelectatic type changes are at the left base. Previous right lower lobe atelectasis has resolve d. Sternotomy wires are in the midline. Post CABG changes are present.. IMPRESSION: 1. Mild left lower lobe streak atelectasis above the diaphragm.
== END | disposition home or self-care (01) ==
LOC: RADXRMAIN 13:11
PROVIDERS: ATTEND Family Medicine
DX: J98.11 Atelectasis (principal); Z95.1 Presence of aortocoronary bypass graft
CPT/HCPCS: 71046

== ENCOUNTER → 2018-06-07 | Outpatient (CLI) | payer BC ==
--- NOTE | 2018-06-08 05:07 | US ---
EXAMINATION TYPE: US bladder DATE OF EXAM: 06/07/2018 COMPARISON: NONE CLINICAL HISTORY: 63-year-old male N18.9 Chronic Kidney Disease. Frequent urination and urgency TECHNIQUE: Multiple sonographic images of the bladder were obtained before and after voiding. FINDINGS: There is mild circumferential bladder wall thickening up to 6 mm. Only the right ureteral jet is visu alized during the course of the exam. Prominent prostate gland measuring 4.8 cm impressing on the pos terior bladder base. Post Void Residual Volume: 11.1 mL IMPRESSION: 1. Mild circumferential bladder wall thickening could represent cystitis or chronic bladder wall hype rtrophy. 2. Prostate gland impressing on to the posterior bladder base may represent BPH. 3. Increased postvoid bladder volume of 11 mL falls within acceptable limits.
== END ==
LOC: RADUSWWP 14:04
PROVIDERS: ATTEND Family Medicine
DX: N32.89 Other specified disorders of bladder (principal)
CPT/HCPCS: 76857

== ENCOUNTER → 2021-09-24 | Outpatient (CLI) | payer MEDICARE ==
[2021-09-24 20:27] LABS: ALT 12 U/L (10-49); AST 16 U/L (14-35); African American GFR (CKD) 73.1 (60.0-200.0); Albumin 4.5 g/dL (3.8-4.9); Albumin/Globulin Ratio 1.41 (1.60-3.17); Alkaline Phosphatase 67 U/L (41-126); BUN/Creat Ratio 12.92 Ratio (12.00-20.00); Blood Urea Nitrogen 15.5 mg/dL (9.0-27.0); Calcium 9.8 mg/dL (8.7-10.3); Chloride 104 mmol/L (96-109); Chol/HDL Ratio 3.16 Ratio; Globulin 3.2 g/dL (1.6-3.3); Glucose 78 mg/dL (70-110); LDL Cholesterol,Calculated 70.4 mg/dL (0.0-131.0); Non-African American GFR(CKD) 63.1 (60.0-200.0); Potassium 4.2 mmol/L (3.5-5.5); Sodium 142 mmol/L (135-145); Total Protein 7.7 g/dL (6.2-8.2)
== END | disposition home or self-care (01) ==
LOC: LABWHC1 12:13
PROVIDERS: ATTEND Nurse Practitioner Adult Health
DX: I10 Essential (primary) hypertension (principal); E78.2 Mixed hyperlipidemia
CPT/HCPCS: 36415; 80053; 80061